=== PATIENT | male | born 1940 | race Caucasian/White ===

== ENCOUNTER 2019-01-30 14:54 | Inpatient (IN) | payer MEDICARE ==
[~2019-01-30] VITALS: Ht 180.3 cm; Wt 86.2 kg
[2019-01-30] MEDS ORDERED: CHOL100013 PO (15:43)
[2019-01-30] MEDS ORDERED: LINA5TAB4 PO (15:43)
[2019-01-30] MEDS ORDERED: AMLO10TA8 PO (15:43)
[2019-01-30] MEDS ORDERED: LISI10TA2 PO (15:43)
[2019-01-30] MEDS ORDERED: IBUP400T18 PO (15:43)
[2019-01-30] MEDS ORDERED: GLIP10TA13 PO (15:43)
[2019-01-30] MEDS ORDERED: INSU100V13 SQ (15:43)
[2019-01-30] MEDS ORDERED: HYDR-2155 PO (15:43)
[2019-01-30] MEDS ORDERED: CITA10TA4 PO (15:43)
[2019-01-30] MEDS ORDERED: ATOR10TA60 PO (15:43)
--- NOTE | 2019-01-30 16:00 | NUR ---
Admission Note with Justification for Admission to [facility] Patient admitted to [facility] for protective oversight for emergency stabilization of acute psychiatric crisis. Pt admitted from: Home to [facility] Mode of arrival: Secure Transport Accompanied By: Secure Transport Precipitating behaviors that initiated intake and admission: Threatening staff, non compliance with meds and cares. Description of failure of out patient attempts at stabilization in previous setting list behavior and medication trials: Celexa Behaviors and assessment findings upon admission: Irritable. Does not know why he is here. Plan: Admit for protective oversight for adjustment and stabilization of medications, behaviors and mood. Intense treatment regimen including groups, medication adjustments, therapy, consistent regimen for ADL's, self care, and sleep hygiene. Daily monitoring by Inpatient staff, Psychiatry, and Medical Physician.
[2019-01-30 16:13] VITALS: BP 110/73
[2019-01-30] MEDS ORDERED: MAGNESIUM HYDROXIDE 2,400 MG/30 ML ORAL.SUSP. PO PRN (16:15)
[2019-01-30] MEDS ORDERED: ACETAMINOPHEN 325 MG TABLET PO PRN (16:15)
[2019-01-30] MEDS ORDERED: MAG HYDROX/AL HYDROX/SIMETH 30 ML ORAL.SUSP PO PRN (16:15)
[2019-01-30] MEDS ORDERED: METHYL SALICYLATE/MENTHOL TOPICAL OINTMENT 29GM TUBE. TP PRN (16:15)
--- NOTE | 2019-01-30 17:00 | NUR ---
SW found pt in the hallway confused as to where he was supposed to be. SW guided pt to be in the dining room as it was time for dinner. Pt then asked SW if she knew the song "the lady with the tattoo". And proceeded to sing the lyrics to SW; in which SW in turn told pt that she was not aware of that song and thanked him for sharing. Pt wished SW to have a good night and proceeded to head into the dining room. SW to complete PSA on Saturday and contact pt facility.
[2019-01-30 17:04] LABS: BASO # 0.1 x10^3/uL (0.0-0.2); BASO % 1 % (0-3); EOS # 0.2 x10^3/uL (0.0-0.7); EOS % 2 % (0-3); HEMATOCRIT 50.5 % (39.0-53.0); HEMOGLOBIN 16.4 g/dL (13.0-17.5); LYMPH # 5.1 x10^3/uL (1.0-4.8); LYMPH % 43 % (24-48); MEAN CORPUSCULAR HEMOGLOBIN 26 pg (25-35); MEAN CORPUSCULAR HGB CONC 33 g/dL (31-37); MEAN CORPUSCULAR VOLUME 80 fL (79-100); MONO # 0.7 x10^3/uL (0.0-1.1); MONO % 6 % (0-9); NEUT # 5.8 x10^3uL (1.8-7.7); NEUT % 49 % (31-73); PLATELET COUNT 162 x10^3/uL (140-400); RED BLOOD COUNT 6.28 x10^6/uL (4.30-5.70); WHITE BLOOD COUNT 11.9 x10^3/uL (4.0-11.0)
[2019-01-30 17:17] LABS: CALCIUM 8.6 mg/dL (8.5-10.1); CREATININE 1.1 mg/dL (0.7-1.3); GFR 65.1; MAGNESIUM 2.1 mg/dL (1.8-2.4); POTASSIUM 4.2 mmol/L (3.5-5.1); TOTAL BILIRUBIN 0.6 mg/dL (0.2-1.0); TOTAL PROTEIN 7.9 g/dL (6.4-8.2)
[2019-01-30 18:05] LABS: % ATYL 3 % (0-0); % BASOS 1 % (0-3); % EOS 1 % (0-5); % LYMPHS 39 % (24-48); % MONOS 8 % (0-10); % SEGS 48 % (35-66); ANISOCYTOSIS SLIGHT; HYPOCHROMIA SLIGHT; PLT ESTIMATE ADEQUATE (ADEQUATE)
[2019-01-30] MEDS ORDERED: HYDROcodone/APAP 5/325MG 1 TAB TABLET PO PRN (18:45)
[2019-01-30] MEDS ORDERED: IBUPROFEN 400 MG TABLET. PO PRN (18:45)
[2019-01-30] MEDS ORDERED: ATORVASTATIN CALCIUM 10 MG TABLET. PO SCH (21:00)
--- NOTE | 2019-01-30 21:14 | EKG ---
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
[2019-01-31 02:11] LABS: THYROXINE 8.3 ug/dL (4.5-12.0)
[2019-01-31 05:49] VITALS: BP 124/75
[2019-01-31] MEDS: ATORVASTATIN CALCIUM 10 MG TABLET. PO SCH (08:32)
[2019-01-31] MEDS: LINAGLIPTIN 5 MG TABLET PO SCH (08:32)
[2019-01-31] MEDS: LISINOPRIL 10 MG TABLET PO SCH (08:33)
[2019-01-31] MEDS: amLODIPine BESYLATE 10 MG TABLET PO SCH (08:33)
[2019-01-31] MEDS: CITALOPRAM 10 MG TABLET. PO SCH (08:34)
[2019-01-31] MEDS: CHOLECALCIFEROL (VITAMIN D3) 1,000 UNIT TABLET PO SCH (08:34)
[2019-01-31] MEDS: glipiZIDE 5 MG TABLET PO SCH ×2 (08:34→08:38)
[2019-01-31] MEDS: INSULIN GLARGINE 300 UNITS/3 ML INSULN.PEN. SQ SCH (08:37)
[2019-01-31 11:17] LABS: THYROID STIM HORMONE (TSH) 1.291 uIU/mL (0.358-3.740)
--- NOTE | 2019-01-31 11:37 | NUR ---
Nursing Note: Assumed care of pt approx 0700. Pt in his room at time of morning medication pass. Pt compliant w/ meds taken whole, compliant w/ assessment. Pt knew his name, his , and the president. When asked the year, pt replied, "I don't give a shit." This nurse replied, "If you don't know the year that if fine. Just take a guess." Pt again said, "I don't give a shit." Pt was initially resistive to taking a shower, but staff was able to convince shower that it was necessary. Pt was cooperative during shower and there were no sexually inappropriate comments made.
[2019-01-31 13:10] LABS: HEMOGLOBIN A1C 9.4 % (4.8-5.6)
[2019-01-31] MEDS ORDERED: DEXTROSE 50% 25 GM / 50ML DISP.SYRIN. IV PRN (15:15)
[2019-01-31 15:43] VITALS: BP 133/90
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
[2019-01-31] MEDS: INSULIN LISPRO 300 UNITS/3 ML INSULN.PEN. SQ SCH (17:45)
[2019-01-31 22:59] LABS: CLARITY,URINE CLEAR; COLOR,URINE YELLOW; GLUCOSE,URINE >=1000 mg/dL (NEG)
[2019-01-31 23:00] LABS: BACTERIA,URINE 0 /HPF (0-FEW); BILIRUBIN,URINE NEG (NEG); NITRITE,URINE NEG (NEG); RBC,URINE 0 /HPF (0-2); SQUAMOUS EPITHELIAL CELL,UR OCC /LPF; UROBILINOGEN,URINE 0.2 mg/dL (0.2 mg/dL); WBC,URINE RARE /HPF (0-4)
--- NOTE | 2019-02-01 | NUR ---
Pt sitting calmly in the dayroom this evening watching a movie. Pt pleasant when approached. Pt flirtatious with this nurse and asked if I was . Pt does not receive any HS medications. Pt A/O x 3 this evening. Pt appeared defensive when asked about why he was at [facility]. 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
--- NOTE | 2019-02-01 05:43 | NUR ---
Pt refused to change into clean clothes this morning. When approached, pt yelled "No! I am not going to change my clothes." Pt could not state any reason as to why he didn't want clean clothes. Pt informed that he will put on clean clothes every morning and shower every other day. Pt given the option to change by himself or staff would help him change. Pt refused. Staff x4 assisted pt in changing of clothes. During this time, pt was never physical, but made several rude, sarcastic and condescending statements. Pt stated that this nurse was "nothing but a panhandler." When asked what he meant, pt stated "all you do is handle bedpans." Pt continued to be rude, demanding and yelling at staff during the clothing change.
[2019-02-01 06:22] VITALS: BP 129/89
[2019-02-01] MEDS: LISINOPRIL 10 MG TABLET PO SCH (08:50)
[2019-02-01] MEDS: CITALOPRAM 10 MG TABLET. PO SCH (08:50)
[2019-02-01] MEDS: ATORVASTATIN CALCIUM 10 MG TABLET. PO SCH (08:50)
[2019-02-01] MEDS: LINAGLIPTIN 5 MG TABLET PO SCH (08:51)
[2019-02-01] MEDS: amLODIPine BESYLATE 10 MG TABLET PO SCH (08:51)
[2019-02-01] MEDS: CHOLECALCIFEROL (VITAMIN D3) 1,000 UNIT TABLET PO SCH (08:51)
[2019-02-01] MEDS: glipiZIDE 5 MG TABLET PO SCH (08:52)
[2019-02-01] MEDS: INSULIN GLARGINE 300 UNITS/3 ML INSULN.PEN. SQ SCH (08:57)
[2019-02-01] MEDS: INSULIN LISPRO 300 UNITS/3 ML INSULN.PEN. SQ SCH ×3 (08:58→17:34)
--- NOTE | 2019-02-01 10:56 | NUR ---
Upon assessment patient is in his room. Was calm, compliant, allowed for assessment, and took medications. 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 No signs of agitation noted at this time. Patient is currently resting quietly in his room. Will continue to monitor.
[2019-02-01 16:08] VITALS: BP 125/77
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
--- NOTE | 2019-02-02 00:06 | NUR ---
Pt sitting calmly all evening in the dayroom. Pt does not receive any HS medications. Pt did become angry when informed that he would need to change into pajamas in order for his clothes to be laundered. Pt refused. Staff x3 assisted in changing pt. During clothing change, pt made rude, derogatory statements to the female staff.
--- NOTE | 2019-02-02 02:56 | NUR ---
Pt awoke and went to the dayroom around 0245. Pt informed of the time and that he needed to try to go back to sleep. Pt very snarky and condescending to this nurse. 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 RN's are known to be congenitally mean. Did you know that? 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
[2019-02-02 06:09] VITALS: BP 132/79
[2019-02-02] MEDS: CITALOPRAM 10 MG TABLET. PO SCH (08:34)
[2019-02-02] MEDS: ATORVASTATIN CALCIUM 10 MG TABLET. PO SCH (08:34)
[2019-02-02] MEDS: LINAGLIPTIN 5 MG TABLET PO SCH (08:35)
[2019-02-02] MEDS: CHOLECALCIFEROL (VITAMIN D3) 1,000 UNIT TABLET PO SCH (08:35)
[2019-02-02] MEDS: LISINOPRIL 10 MG TABLET PO SCH (08:35)
[2019-02-02] MEDS: amLODIPine BESYLATE 10 MG TABLET PO SCH (08:35)
[2019-02-02] MEDS: INSULIN LISPRO 300 UNITS/3 ML INSULN.PEN. SQ SCH ×3 (08:39→17:42)
[2019-02-02] MEDS: INSULIN GLARGINE 300 UNITS/3 ML INSULN.PEN. SQ SCH ×2 (08:40→20:24)
[2019-02-02] MEDS ORDERED: glipiZIDE 5 MG TABLET PO ONE (08:45)
--- NOTE | 2019-02-02 09:45 | NUR ---
Patient took medications, allowed for morning assessment. When staff first tried to get patient in the shower he was resistive. No signs of agitation noted, will continue to monitor.
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
--- NOTE | 2019-02-02 10:30 | NUR ---
SW noted that pt, according to the intake, has an emergency temporary guardian assigned to him. However, the facesheet list pt as the emergency contact and next of kin. SW left a message with pt "guardian" to clarify who can be talked to and who could not.
--- NOTE | 2019-02-02 13:00 | RAD ---
CT of the head without contrast, 02/02/2019: HISTORY: Altered mental status There is moderate cerebral atrophy and mild cerebellar atrophy. The ventricles are enlarged on a compensatory basis. There is no shift of the midline structures. There is no evidence of acute intracranial hemorrhage or mass effect. There is calcific plaquing of the distal internal carotid and vertebral arteries. IMPRESSION: 1. Moderate cerebral atrophy. 2. No acute intracranial abnormality is detected. PQRS Compliance Statement: One or more of the following individualized dose reduction techniques were utilized for this examination: 1. Automated exposure control 2. Adjustment of the mA and/or kV according to patient size 3. Use of iterative reconstruction technique Electronically signed by: Amrit Demarco MD (02/02/2019 12:57 PM) [facility]
--- NOTE | 2019-02-02 14:15 | NUR ---
Attempted to meet and complete Activity Therapy Assessment; however, Pt. was sleeping.
[2019-02-02 16:40] VITALS: BP 126/86
[2019-02-02] MEDS: MIRTAZAPINE 7.5 MG TABLET. PO SCH (20:23)
--- NOTE | 2019-02-02 23:17 | PDOC ---
Exam Note: Marlo Note: Please also refer to the separate dictated note~for this date of service dictated separately. Discussed the patient with Nursing staff reviewed the chart.~Reviewed interim history and current functioning. Reviewed vital signs,~Labs/ Radiology~and current medications noted below. Continue current treatment with the changes noted in the dictated addendum note Assessment: Vital Signs: Vital Signs Date Time Temp Pulse Resp B/P (MAP) Pulse Ox O2 Delivery O2 Flow Rate FiO2 02/02/19 16:40 97.4 94 18 126/86 (99) 96 01/31/19 15:43 Room Air I&O Intake and Output 02/02/19 06:59 Intake Total 1440 ml Balance 1440 ml Intake Oral 1440 ml # Bowel Movements 1 Labs: Laboratory Tests Test 02/02/19 07:58 02/02/19 10:35 02/02/19 11:43 02/02/19 17:03 Glucose (Fingerstick) 215 mg/dL (70-99) H 140 mg/dL (70-99) H 181 mg/dL (70-99) H Vitamin B12 Level 534 pg/mL (247-911) Test 02/02/19 20:06 Glucose (Fingerstick) 314 mg/dL (70-99) H Current Medications: Meds: Current Medications Acetaminophen (Tylenol) 650 mg PRN Q6HRS PRN PO PAIN / TEMP Last administered on 01/31/19at 18:47; Start 01/30/19 at 16:15 Multi-Ingredient Ointment (Analgesic [place]) 1 kimberley PRN QID PRN TP MUSCLE PAIN; Start 01/30/19 at 16:15 Al Hydroxide/Mg Hydroxide (Mylanta Plus Xs) 15 ml PRN AFTMEALHC PRN PO DYSPEPSIA; Start 01/30/19 at 16:15 Magnesium Hydroxide (Milk Of Magnesia) 2,400 mg PRN QHS PRN PO CONSTIPATION; Start 01/30/19 at 16:15 Citalopram Hydrobromide (CeleXA) 10 mg DAILY PO Last administered on 02/02/19at 08:34; Start 01/31/19 at 09:00 Acetaminophen/ Hydrocodone Bitart (Lortab 5/325) 1 tab PRN Q4HRS PRN PO PAIN; Start 01/30/19 at 18:45 Ibuprofen (Motrin) 400 mg PRN Q6HRS PRN PO PAIN / TEMP; Start 01/30/19 at 18:45 Lisinopril (Prinivil) 10 mg DAILY PO Last administered on 02/02/19at 08:35; Start 01/31/19 at 09:00 Amlodipine Besylate (Norvasc) 10 mg DAILY PO Last administered on 02/02/19at 08:35; Start 01/31/19 at 09:00 Atorvastatin Calcium (Lipitor) 10 mg QHS PO ; Start 01/30/19 at 21:00; Stop 01/30/19 at 21:00; Status DC Vitamin D (Vitamin D3) 5,000 unit DAILY PO Last administered on 02/02/19 08:35; Start 01/31/19 at 09:00 Glipizide (Glucotrol) 10 mg DAILYAC PO Last administered on 02/01/19 08:52; Start 01/31/19 at 07:30; Stop 02/02/19 at 08:42; Status DC Insulin Glargine (Lantus) 30 units DAILY SQ Last administered on 02/02/19at 08:40; Start 01/31/19 at 09:00 Linagliptin (Tradjenta) 5 mg DAILY PO Last administered on 02/02/19 08:35; Start 01/31/19 at 09:00 Atorvastatin Calcium (Lipitor) 10 mg DAILY PO Last administered on 02/02/19 08:34; Start 01/31/19 at 09:00 Insulin Human Lispro (HumaLOG) 0-7 UNITS TIDWMEALS SQ Last administered on 02/02/19at 17:42; Start 01/31/19 at 17:00 Dextrose (Dextrose 50%-Water Syringe) 12.5 gm PRN Q15MIN PRN IV SEE COMMENTS; Start 01/31/19 at 15:15 Glipizide (Glucotrol) 10 mg 1X ONCE PO Last administered on 02/02/19at 08:44; Start 02/02/19 at 08:45; Stop 02/02/19 at 08:46; Status DC Glipizide (Glucotrol) 10 mg DAILYAC PO ; Start 02/03/19 at 07:30; Stop 02/03/19 at 07:30; Status DC Mirtazapine (Remeron) 7.5 mg QHS PO Last administered on 02/02/19at 20:23; Start 02/02/19 at 21:00 Rivastigmine (Exelon) 1 patch DAILY TD ; Start 02/03/19 at 09:00 Insulin Glargine (Lantus) 8 units QHS SQ Last administered on 02/02/19at 20:24; Start 02/02/19 at 21:00 Active Scripts Active Reported Ibuprofen 400 Mg Tablet 400 Mg PO PRN Q6HRS PRN Hydrocodone-Apap 5-325 (Hydrocodone Bit/Acetaminophen) 1 Each Tablet 1 Tab PO PRN Q4HRS PRN Lisinopril 10 Mg Tablet 10 Mg PO DAILY Tradjenta (Linagliptin) 5 Mg Tablet 5 Mg PO DAILY Levemir (Insulin Detemir) 100 Unit/1 Ml Vial 30 Unit SQ DAILY Glipizide 10 Mg Tablet 10 Mg PO DAILY Citalopram Hbr (Citalopram Hydrobromide) 10 Mg Tablet 10 Mg PO DAILY Vitamin D (Cholecalciferol (Vitamin D3)) 1,000 Unit Capsule 5,000 Unit PO DAILY Atorvastatin Calcium 10 Mg Tablet 10 Mg PO QHS Amlodipine Besylate 10 Mg Tablet 10 Mg PO DAILY I have reviewed the current psychotropics carefully including drug interactions. Risk benefit ratio favors no change other than as noted in my dictated progress note. Diagnosis: Problems: (1) Dementia in Alzheimer's disease with depression (2) Dementia of the Alzheimer's type (3) Dementia, vascular (4) Major neurocognitive disorder due to Alzheimer's disease, with behavioral disturbance RADHA OLGUIN MD February 02, 2019 23:17
--- NOTE | 2019-02-03 00:26 | NUR ---
Pt sitting calmly in the dayroom this evening. Pt A/O x3, but could not state what he had done today. Pt short with his answers and appeared irritated when asked questions. Continues to be condescending to staff, calling nurses pill pushers and panhandlers. Compliant with HS medications. When asked if this nurse could do anything else for him, pt stated "yes, me." Will continue to monitor.
[2019-02-03 06:27] VITALS: BP 135/87
[2019-02-03] MEDS ORDERED: glipiZIDE 5 MG TABLET PO SCH (07:30)
[2019-02-03] MEDS: CITALOPRAM 10 MG TABLET. PO SCH (09:25)
[2019-02-03] MEDS: ATORVASTATIN CALCIUM 10 MG TABLET. PO SCH (09:25)
[2019-02-03] MEDS: amLODIPine BESYLATE 10 MG TABLET PO SCH (09:26)
[2019-02-03] MEDS: CHOLECALCIFEROL (VITAMIN D3) 1,000 UNIT TABLET PO SCH (09:26)
[2019-02-03] MEDS: LISINOPRIL 10 MG TABLET PO SCH (09:27)
[2019-02-03] MEDS: LINAGLIPTIN 5 MG TABLET PO SCH (09:27)
[2019-02-03] MEDS: RIVASTIGMINE 4.6MG PATCH. TD SCH (09:31)
[2019-02-03] MEDS: INSULIN LISPRO 300 UNITS/3 ML INSULN.PEN. SQ SCH ×3 (10:03→17:32)
[2019-02-03] MEDS: INSULIN GLARGINE 300 UNITS/3 ML INSULN.PEN. SQ SCH ×2 (10:04→19:48)
--- NOTE | 2019-02-03 11:43 | NUR ---
Patient has had a quiet morning. Upon assessment he was just getting ready to lay down after breakfast. Took medications, allowed for morning assessment. No signs of agitation at this time. Will continue to monitor.
--- NOTE | 2019-02-03 15:00 | NUR ---
ACTIVITY THERAPY ASSESSMENT Completed based on observation and [facility]/nursing notes. Pt. has been sleeping on five difference occasions when PEDIATRIC CNS attempted to meet and complete assessment interview. Pt. is not around day room very often. When he was, he apologized and explained he is hard of hearing and cups his right ear in an effort to hear better. Per [employer] notes, Pt is resistive to ADL cares (changing briefs/ clothing) and can make rude and belittling comments to staff. He also tends to ask female staff if they are . 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 Activity Therapy team will attempt to gather more leisure interests/ hobbies and amend this note as needed. Initial goal aimed to increase engagement: Pt. will participate in at least five individual or (Activity Therapy) groups before discharge.
[2019-02-03 16:08] VITALS: BP 123/76
[2019-02-03] MEDS: MIRTAZAPINE 7.5 MG TABLET. PO SCH (19:39)
--- NOTE | 2019-02-03 19:57 | PDOC ---
Exam Note: Marlo Note: Admission Date: January 30, 2019 at 15:53 * A recertification for continued Inpatient Psychiatric Admission must be done on Day 12, Day 18 and Day 30. Please also refer to the separate dictated note~for this date of service dictated separately.~Patient seen individually. Discussed the patient with Nursing staff reviewed the chart.~Reviewed interim history and current functioning. Reviewed vital signs,~Labs/ Radiology~and current medications noted below. Continue current treatment with the changes noted in the dictated addendum note Assessment: Vital Signs: Vital Signs Date Time Temp Pulse Resp B/P (MAP) Pulse Ox O2 Delivery O2 Flow Rate FiO2 02/03/19 16:08 97.8 84 20 123/76 (92) 95 01/31/19 15:43 Room Air I&O Intake and Output 02/03/19 07:00 Intake Total 1160 ml Balance 1160 ml Intake Oral 1160 ml Labs: Laboratory Tests Test 02/02/19 20:06 02/03/19 07:23 02/03/19 11:35 02/03/19 16:35 Glucose (Fingerstick) 314 mg/dL (70-99) H 181 mg/dL (70-99) H 280 mg/dL (70-99) H 185 mg/dL (70-99) H Test 02/03/19 19:42 Glucose (Fingerstick) 264 mg/dL (70-99) H Current Medications: Meds: Current Medications Acetaminophen (Tylenol) 650 mg PRN Q6HRS PRN PO PAIN / TEMP Last administered on 01/31/19at 18:47; Start 01/30/19 at 16:15 Multi-Ingredient Ointment (Analgesic [place]) 1 kimberley PRN QID PRN TP MUSCLE PAIN; Start 01/30/19 at 16:15 Al Hydroxide/Mg Hydroxide (Mylanta Plus Xs) 15 ml PRN AFTMEALHC PRN PO DYSPEPSIA; Start 01/30/19 at 16:15 Magnesium Hydroxide (Milk Of Magnesia) 2,400 mg PRN QHS PRN PO CONSTIPATION; Start 01/30/19 at 16:15 Citalopram Hydrobromide (CeleXA) 10 mg DAILY PO Last administered on 02/03/19at 09:25; Start 01/31/19 at 09:00 Acetaminophen/ Hydrocodone Bitart (Lortab 5/325) 1 tab PRN Q4HRS PRN PO PAIN; Start 01/30/19 at 18:45 Ibuprofen (Motrin) 400 mg PRN Q6HRS PRN PO PAIN / TEMP; Start 01/30/19 at 18:45 Lisinopril (Prinivil) 10 mg DAILY PO Last administered on 02/03/19at 09:27; Start 01/31/19 at 09:00 Amlodipine Besylate (Norvasc) 10 mg DAILY PO Last administered on 02/03/19at 09:26; Start 01/31/19 at 09:00 Atorvastatin Calcium (Lipitor) 10 mg QHS PO ; Start 01/30/19 at 21:00; Stop 01/30/19 at 21:00; Status DC Vitamin D (Vitamin D3) 5,000 unit DAILY PO Last administered on 02/03/19at 09:26; Start 01/31/19 at 09:00 Glipizide (Glucotrol) 10 mg DAILYAC PO Last administered on 02/01/19at 08:52; Start 01/31/19 at 07:30; Stop 02/02/19 at 08:42; Status DC Insulin Glargine (Lantus) 30 units DAILY SQ Last administered on 02/03/19at 10:04; Start 01/31/19 at 09:00 Linagliptin (Tradjenta) 5 mg DAILY PO Last administered on 02/03/19at 09:27; Start 01/31/19 at 09:00 Atorvastatin Calcium (Lipitor) 10 mg DAILY PO Last administered on 02/03/19at 09:25; Start 01/31/19 at 09:00 Insulin Human Lispro (HumaLOG) 0-7 UNITS TIDWMEALS SQ Last administered on 02/03/19at 17:32; Start 01/31/19 at 17:00 Dextrose (Dextrose 50%-Water Syringe) 12.5 gm PRN Q15MIN PRN IV SEE COMMENTS; Start 01/31/19 at 15:15 Glipizide (Glucotrol) 10 mg 1X ONCE PO Last administered on 02/02/19at 08:44; Start 02/02/19 at 08:45; Stop 02/02/19 at 08:46; Status DC Glipizide (Glucotrol) 10 mg DAILYAC PO ; Start 02/03/19 at 07:30; Stop 02/03/19 at 07:30; Status DC Mirtazapine (Remeron) 7.5 mg QHS PO Last administered on 02/03/19at 19:39; Start 02/02/19 at 21:00 Rivastigmine (Exelon) 1 patch DAILY TD Last administered on 02/03/19at 09:31; Start 02/03/19 at 09:00 Insulin Glargine (Lantus) 8 units QHS SQ Last administered on 02/03/19at 19:48; Start 02/02/19 at 21:00 Active Scripts Active Reported Ibuprofen 400 Mg Tablet 400 Mg PO PRN Q6HRS PRN Hydrocodone-Apap 5-325 (Hydrocodone Bit/Acetaminophen) 1 Each Tablet 1 Tab PO PRN Q4HRS PRN Lisinopril 10 Mg Tablet 10 Mg PO DAILY Tradjenta (Linagliptin) 5 Mg Tablet 5 Mg PO DAILY Levemir (Insulin Detemir) 100 Unit/1 Ml Vial 30 Unit SQ DAILY Glipizide 10 Mg Tablet 10 Mg PO DAILY Citalopram Hbr (Citalopram Hydrobromide) 10 Mg Tablet 10 Mg PO DAILY Vitamin D (Cholecalciferol (Vitamin D3)) 1,000 Unit Capsule 5,000 Unit PO DAILY Atorvastatin Calcium 10 Mg Tablet 10 Mg PO QHS Amlodipine Besylate 10 Mg Tablet 10 Mg PO DAILY I have reviewed the current psychotropics carefully including drug interactions. Risk benefit ratio favors no change other than as noted in my dictated progress note. Diagnosis: Problems: (1) Dementia, vascular (2) Dementia of the Alzheimer's type (3) Dementia, Alzheimer's, with behavior disturbance (4) Dementia in Alzheimer's disease with depression (5) Major neurocognitive disorder due to Alzheimer's disease, with behavioral disturbance RADHA OLGUIN MD February 03, 2019 19:57
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
--- NOTE | 2019-02-03 22:33 | NUR ---
Nursing Note The patient was located in the day room for his assessment and medication pass. The patient was compliant with his medication but was irritable with his assessment. The patient stated numerous times that he doesn't care if he knows his location or what the date is. The patient is currently sleeping in his room.
[2019-02-04 06:20] VITALS: BP 129/81
[2019-02-04] MEDS: INSULIN LISPRO 300 UNITS/3 ML INSULN.PEN. SQ SCH ×4 (08:00→17:19)
[2019-02-04] MEDS: CITALOPRAM 10 MG TABLET. PO SCH (08:08)
[2019-02-04] MEDS: amLODIPine BESYLATE 10 MG TABLET PO SCH (08:08)
[2019-02-04] MEDS: ATORVASTATIN CALCIUM 10 MG TABLET. PO SCH (08:08)
[2019-02-04] MEDS: LISINOPRIL 10 MG TABLET PO SCH (08:08)
[2019-02-04] MEDS: LINAGLIPTIN 5 MG TABLET PO SCH (08:08)
[2019-02-04] MEDS: CHOLECALCIFEROL (VITAMIN D3) 1,000 UNIT TABLET PO SCH (08:08)
[2019-02-04] MEDS: RIVASTIGMINE 4.6MG PATCH. TD SCH (08:09)
[2019-02-04] MEDS: INSULIN GLARGINE 300 UNITS/3 ML INSULN.PEN. SQ SCH ×2 (08:10→19:46)
[2019-02-04 09:07] LABS: BASO # 0.1 x10^3/uL (0.0-0.2); BASO % 1 % (0-3); EOS # 0.2 x10^3/uL (0.0-0.7); EOS % 3 % (0-3); HEMATOCRIT 44.7 % (39.0-53.0); HEMOGLOBIN 14.4 g/dL (13.0-17.5); LYMPH % 44 % (24-48); MEAN CORPUSCULAR HEMOGLOBIN 26 pg (25-35); MEAN CORPUSCULAR HGB CONC 32 g/dL (31-37); MEAN CORPUSCULAR VOLUME 81 fL (79-100); MONO # 0.6 x10^3/uL (0.0-1.1); MONO % 6 % (0-9); NEUT # 4.3 x10^3uL (1.8-7.7); NEUT % 47 % (31-73); PLATELET COUNT 160 x10^3/uL (140-400); RED BLOOD COUNT 5.55 x10^6/uL (4.30-5.70); WHITE BLOOD COUNT 9.1 x10^3/uL (4.0-11.0)
[2019-02-04 09:16] LABS: ALBUMIN 3.3 g/dL (3.4-5.0); CALCIUM 8.7 mg/dL (8.5-10.1); GFR 72.6; POTASSIUM 3.8 mmol/L (3.5-5.1); TOTAL BILIRUBIN 0.6 mg/dL (0.2-1.0); TOTAL PROTEIN 6.5 g/dL (6.4-8.2)
--- NOTE | 2019-02-04 13:21 | NUR ---
Nursing Note pt was in dining room this am for assessment and medication administration. pt was compliant with medications. pt was non compliant with A&O questions. states "it is 2019, abdirizak is the president, and i don't care about anything else". upon assessment, pt has healing scabs on bilateral shins and on left arm. left lower extremity covered with foam, others DANIELE. Pt was withdrawn to his room in bed for most of the day thus far. pt ate breakfast but refused to come down for lunch. pt was not very interactive today with others or activities. will continue to monitor.
[2019-02-04 16:07] VITALS: BP 136/81
[2019-02-04] MEDS: MIRTAZAPINE 7.5 MG TABLET. PO SCH (19:45)
--- NOTE | 2019-02-04 21:01 | PN ---
DATE: 02/03/2019 PSYCHIATRIC PROGRESS NOTE This late entry 02/03/2019 covers elements not covered in my initial note. SUBJECTIVE: I met with the patient in the evening at length. The patient slept 6-1/2 hours previous night. He had a good day, compliant with treatment, agitated with showers and changing his clothes, which is what was a big problem at home before he came here with very poor hygiene. REVIEW OF SYSTEMS: No CV, , pulmonary, eye, ENT system symptoms on review. Reliability poor. MENTAL STATUS EXAM: Oriented to himself. Insight, judgment, recent and remote memory, attention, concentration, fund of knowledge poor, consistent with his diagnosis mentioned in my initial note. During the individual visit, he talked at length about training children and various life skills and work skills, and he was able to remember some of this as I sat with him. IMPRESSION: Unchanged from initial note. PLAN: No change from initial note. RADHA OLGUIN MD DR: ALAN/elina JOB#: [id number] / [id number]
--- NOTE | 2019-02-04 22:01 | PDOC ---
Exam Note: Marlo Note: Please also refer to the separate dictated note~for this date of service dictated separately.~Patient seen individually. Discussed the patient with Nursing staff reviewed the chart.~Reviewed interim history and current functioning. Reviewed vital signs,~Labs/ Radiology~and current medications noted below. Continue current treatment with the changes noted in the dictated addendum note Assessment: Vital Signs: Vital Signs Date Time Temp Pulse Resp B/P (MAP) Pulse Ox O2 Delivery O2 Flow Rate FiO2 02/04/19 16:07 98.5 83 18 136/81 (99) 96 01/31/19 15:43 Room Air I&O Intake and Output 02/04/19 07:00 Intake Total 1700 ml Balance 1700 ml Intake Oral 1700 ml Labs: Laboratory Tests Test 02/04/19 07:19 02/04/19 08:54 02/04/19 11:32 02/04/19 17:16 Glucose (Fingerstick) 108 mg/dL (70-99) H 178 mg/dL (70-99) H 212 mg/dL (70-99) H White Blood Count 9.1 x10^3/uL (4.0-11.0) Red Blood Count 5.55 x10^6/uL (4.30-5.70) Hemoglobin 14.4 g/dL (13.0-17.5) Hematocrit 44.7 % (39.0-53.0) Mean Corpuscular Volume 81 fL (79-100) Mean Corpuscular Hemoglobin 26 pg (25-35) Mean Corpuscular Hemoglobin Concent 32 g/dL (31-37) Red Cell Distribution Width 15.0 % (11.5-14.5) H Platelet Count 160 x10^3/uL (140-400) Neutrophils (%) (Auto) 47 % (31-73) Lymphocytes (%) (Auto) 44 % (24-48) Monocytes (%) (Auto) 6 % (0-9) Eosinophils (%) (Auto) 3 % (0-3) Basophils (%) (Auto) 1 % (0-3) Neutrophils # (Auto) 4.3 x10^3uL (1.8-7.7) Lymphocytes # (Auto) 4.0 x10^3/uL (1.0-4.8) Monocytes # (Auto) 0.6 x10^3/uL (0.0-1.1) Eosinophils # (Auto) 0.2 x10^3/uL (0.0-0.7) Basophils # (Auto) 0.1 x10^3/uL (0.0-0.2) Sodium Level 138 mmol/L (136-145) Potassium Level 3.8 mmol/L (3.5-5.1) Chloride Level 101 mmol/L (98-107) Carbon Dioxide Level 32 mmol/L (21-32) Anion Gap 5 (6-14) L Blood Urea Nitrogen 17 mg/dL (8-26) Creatinine 1.0 mg/dL (0.7-1.3) Estimated GFR (Cockcroft-Gault) 72.6 BUN/Creatinine Ratio 17 (6-20) Glucose Level 221 mg/dL (70-99) H Calcium Level 8.7 mg/dL (8.5-10.1) Total Bilirubin 0.6 mg/dL (0.2-1.0) Aspartate Amino Transferase (AST) 9 U/L (15-37) L Alanine Aminotransferase (ALT) 21 U/L (16-63) Alkaline Phosphatase 77 U/L (46-116) Total Protein 6.5 g/dL (6.4-8.2) Albumin 3.3 g/dL (3.4-5.0) L Albumin/Globulin Ratio 1.0 (1.0-1.7) Test 02/04/19 19:15 Glucose (Fingerstick) 344 mg/dL (70-99) H Current Medications: Meds: Current Medications Acetaminophen (Tylenol) 650 mg PRN Q6HRS PRN PO PAIN / TEMP Last administered on 01/31/19at 18:47; Start 01/30/19 at 16:15 Multi-Ingredient Ointment (Analgesic [place]) 1 kimberley PRN QID PRN TP MUSCLE PAIN; Start 01/30/19 at 16:15 Al Hydroxide/Mg Hydroxide (Mylanta Plus Xs) 15 ml PRN AFTMEALHC PRN PO DYSPEPSIA; Start 01/30/19 at 16:15 Magnesium Hydroxide (Milk Of Magnesia) 2,400 mg PRN QHS PRN PO CONSTIPATION; Start 01/30/19 at 16:15 Citalopram Hydrobromide (CeleXA) 10 mg DAILY PO Last administered on 02/04/19 08:08; Start 01/31/19 at 09:00; Stop 02/04/19 at 17:01; Status DC Acetaminophen/ Hydrocodone Bitart (Lortab 5/325) 1 tab PRN Q4HRS PRN PO PAIN; Start 01/30/19 at 18:45 Ibuprofen (Motrin) 400 mg PRN Q6HRS PRN PO PAIN / TEMP; Start 01/30/19 at 18:45 Lisinopril (Prinivil) 10 mg DAILY PO Last administered on 02/04/19at 08:08; Start 01/31/19 at 09:00 Amlodipine Besylate (Norvasc) 10 mg DAILY PO Last administered on 02/04/19at 08:08; Start 01/31/19 at 09:00 Atorvastatin Calcium (Lipitor) 10 mg QHS PO ; Start 01/30/19 at 21:00; Stop 01/30/19 at 21:00; Status DC Vitamin D (Vitamin D3) 5,000 unit DAILY PO Last administered on 02/04/19at 08:0 8; Start 01/31/19 at 09:00 Glipizide (Glucotrol) 10 mg DAILYAC PO Last administered on 02/01/19at 08:52; Start 01/31/19 at 07:30; Stop 02/02/19 at 08:42; Status DC Insulin Glargine (Lantus) 30 units DAILY SQ Last administered on 02/03/19at 10:04; Start 01/31/19 at 09:00 Linagliptin (Tradjenta) 5 mg DAILY PO Last administered on 02/04/19at 08:08; Start 01/31/19 at 09:00 Atorvastatin Calcium (Lipitor) 10 mg DAILY PO Last administered on 02/04/19at 08:08; Start 01/31/19 at 09:00 Insulin Human Lispro (HumaLOG) 0-7 UNITS TIDWMEALS SQ Last administered on 02/04/19at 17:19; Start 01/31/19 at 17:00 Dextrose (Dextrose 50%-Water Syringe) 12.5 gm PRN Q15MIN PRN IV SEE COMMENTS; Start 01/31/19 at 15:15 Glipizide (Glucotrol) 10 mg 1X ONCE PO Last administered on 02/02/19at 08:44; Start 02/02/19 at 08:45; Stop 02/02/19 at 08:46; Status DC Glipizide (Glucotrol) 10 mg DAILYAC PO ; Start 02/03/19 at 07:30; Stop 02/03/19 at 07:30; Status DC Mirtazapine (Remeron) 7.5 mg QHS PO Last administered on 02/04/19at 19:45; Start 02/02/19 at 21:00 Rivastigmine (Exelon) 1 patch DAILY TD Last administered on 02/04/19at 08:09; Start 02/03/19 at 09:00 Insulin Glargine (Lantus) 8 units QHS SQ Last administered on 02/04/19at 19:46; Start 02/02/19 at 21:00 Citalopram Hydrobromide (CeleXA) 20 mg DAILY PO ; Start 02/05/19 at 09:00 Active Scripts Active Reported Ibuprofen 400 Mg Tablet 400 Mg PO PRN Q6HRS PRN Hydrocodone-Apap 5-325 (Hydrocodone Bit/Acetaminophen) 1 Each Tablet 1 Tab PO PRN Q4HRS PRN Lisinopril 10 Mg Tablet 10 Mg PO DAILY Tradjenta (Linagliptin) 5 Mg Tablet 5 Mg PO DAILY Levemir (Insulin Detemir) 100 Unit/1 Ml Vial 30 Unit SQ DAILY Glipizide 10 Mg Tablet 10 Mg PO DAILY Citalopram Hbr (Citalopram Hydrobromide) 10 Mg Tablet 10 Mg PO DAILY Vitamin D (Cholecalciferol (Vitamin D3)) 1,000 Unit Capsule 5,000 Unit PO DAILY Atorvastatin Calcium 10 Mg Tablet 10 Mg PO QHS Amlodipine Besylate 10 Mg Tablet 10 Mg PO DAILY I have reviewed the current psychotropics carefully including drug interactions. Risk benefit ratio favors no change other than as noted in my dictated progress note. Diagnosis: Problems: (1) Dementia, vascular (2) Dementia of the Alzheimer's type (3) Dementia, Alzheimer's, with behavior disturbance (4) Dementia in Alzheimer's disease with depression (5) Major neurocognitive disorder due to Alzheimer's disease, with behavioral disturbance RADHA OLGUIN MD February 04, 2019 22:01
--- NOTE | 2019-02-04 23:58 | NUR ---
Pt located in the dayroom this evening. Pt calm and interactive. Compliant with meds. 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
[2019-02-05 05:47] VITALS: BP 169/89
[2019-02-05] MEDS: INSULIN LISPRO 300 UNITS/3 ML INSULN.PEN. SQ SCH ×3 (08:28→17:40)
[2019-02-05] MEDS: CHOLECALCIFEROL (VITAMIN D3) 1,000 UNIT TABLET PO SCH (08:29)
[2019-02-05] MEDS: amLODIPine BESYLATE 10 MG TABLET PO SCH (08:29)
[2019-02-05] MEDS: LISINOPRIL 10 MG TABLET PO SCH (08:29)
[2019-02-05] MEDS: ATORVASTATIN CALCIUM 10 MG TABLET. PO SCH (08:29)
[2019-02-05] MEDS: LINAGLIPTIN 5 MG TABLET PO SCH (08:30)
[2019-02-05] MEDS: RIVASTIGMINE 4.6MG PATCH. TD SCH (08:32)
[2019-02-05] MEDS: INSULIN GLARGINE 300 UNITS/3 ML INSULN.PEN. SQ SCH ×2 (08:33→20:21)
[2019-02-05] MEDS: CITALOPRAM 20 MG TABLET. PO SCH (08:34)
--- NOTE | 2019-02-05 10:28 | NUR ---
WEEKLY NOTE: Pt is very grandiose and needs constant redirection on showering and changing his clothing. Pt is also very condescending and can be rude to staff. Pt will need placement at the time of D/C. Pt will have Risperdal .25mg q HS. ELOS end of next week or early part of the week after. Pt tends to withdraw to his room and it is suspected that he may have some hearing concerns.
--- NOTE | 2019-02-05 10:31 | NUR ---
WEEKLY ACTIVITY THERAPY NOTE Date of Admission: 01/30/2019 Date of AT Assessment: 02/03/2019 Goal aimed: to increase engagement Initial goal: Pt. will participate in at least five individual or (Activity Therapy) groups before discharge. Weekly progress towards goal: NA Group participation level: minimal Weekly highlights: full participation in group on Saturday-praise and jain songs and sermon Behaviors observed: sleeping often, cupping right ear to hear better, apologizes for not hearing well Plan: Beneficial adaptations: possibly a pocketalker
--- NOTE | 2019-02-05 13:35 | NUR ---
BRENNAN left a message with Nikole, pt temporary guardian, to contact BRENNAN when possible to question pt discharge plans once stable from [facility].
--- NOTE | 2019-02-05 14:36 | NUR ---
Patient compliant with medications. Patient was demanding to go into day room after breakfast, but has spent most of the day in bed sleeping. Grandiose in conversation during assessment, oriented x3 denies the situation of his hospitalization. 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
[2019-02-05 15:35] VITALS: BP 149/79
[2019-02-05] MEDS: MIRTAZAPINE 7.5 MG TABLET. PO SCH (20:18)
[2019-02-05] MEDS: risperiDONE 0.25 MG TABLET. PO SCH (20:22)
--- NOTE | 2019-02-05 22:27 | PDOC ---
Exam Note: Marlo Note: Please also refer to the separate dictated note~for this date of service dictated separately.~Patient seen individually. Discussed the patient with Nursing staff reviewed the chart.~Reviewed interim history and current functioning. Reviewed vital signs,~Labs/ Radiology~and current medications noted below. Continue current treatment with the changes noted in the dictated addendum note Assessment: Vital Signs: Vital Signs Date Time Temp Pulse Resp B/P (MAP) Pulse Ox O2 Delivery O2 Flow Rate FiO2 02/05/19 15:35 99.0 82 18 149/79 (102) 96 01/31/19 15:43 Room Air I&O Intake and Output 02/05/19 06:59 Intake Total 960 ml Balance 960 ml Intake Oral 960 ml # Voids 1 Labs: Laboratory Tests Test 02/05/19 07:17 02/05/19 11:55 02/05/19 17:12 02/05/19 19:08 Glucose (Fingerstick) 203 mg/dL (70-99) H 244 mg/dL (70-99) H 216 mg/dL (70-99) H 345 mg/dL (70-99) H Current Medications: Meds: Current Medications Acetaminophen (Tylenol) 650 mg PRN Q6HRS PRN PO PAIN / TEMP Last administered on 01/31/19at 18:47; Start 01/30/19 at 16:15 Multi-Ingredient Ointment (Analgesic [place]) 1 kimberley PRN QID PRN TP MUSCLE PAIN; Start 01/30/19 at 16:15 Al Hydroxide/Mg Hydroxide (Mylanta Plus Xs) 15 ml PRN AFTMEALHC PRN PO DYSPEPSIA; Start 01/30/19 at 16:15 Magnesium Hydroxide (Milk Of Magnesia) 2,400 mg PRN QHS PRN PO CONSTIPATION; Start 01/30/19 at 16:15 Citalopram Hydrobromide (CeleXA) 10 mg DAILY PO Last administered on 02/04/19at 08:08; Start 01/31/19 at 09:00; Stop 02/04/19 at 17:01; Status DC Acetaminophen/ Hydrocodone Bitart (Lortab 5/325) 1 tab PRN Q4HRS PRN PO PAIN; Start 01/30/19 at 18:45 Ibuprofen (Motrin) 400 mg PRN Q6HRS PRN PO PAIN / TEMP; Start 01/30/19 at 18:45 Lisinopril (Prinivil) 10 mg DAILY PO Last administered on 02/05/19 08:29; Start 01/31/19 at 09:00 Amlodipine Besylate (Norvasc) 10 mg DAILY PO Last administered on 02/05/19 08:29; Start 01/31/19 at 09:00 Atorvastatin Calcium (Lipitor) 10 mg QHS PO ; Start 01/30/19 at 21:00; Stop 01/30/19 at 21:00; Status DC Vitamin D (Vitamin D3) 5,000 unit DAILY PO Last administered on 02/05/19 08:29; Start 01/31/19 at 09:00 Glipizide (Glucotrol) 10 mg DAILYAC PO Last administered on 02/01/19 08:52; Start 01/31/19 at 07:30; Stop 02/02/19 at 08:42; Status DC Insulin Glargine (Lantus) 30 units DAILY SQ Last administered on 02/05/19 08:33; Start 01/31/19 at 09:00 Linagliptin (Tradjenta) 5 mg DAILY PO Last administered on 02/05/19 08:30; Start 01/31/19 at 09:00 Atorvastatin Calcium (Lipitor) 10 mg DAILY PO Last administered on 02/05/19 08:29; Start 01/31/19 at 09:00 Insulin Human Lispro (HumaLOG) 0-7 UNITS TIDWMEALS SQ Last administered on 02/05/19at 17:40; Start 01/31/19 at 17:00 Dextrose (Dextrose 50%-Water Syringe) 12.5 gm PRN Q15MIN PRN IV SEE COMMENTS; Start 01/31/19 at 15:15 Glipizide (Glucotrol) 10 mg 1X ONCE PO Last administered on 02/02/19at 08:44; Start 02/02/19 at 08:45; Stop 02/02/19 at 08:46; Status DC Glipizide (Glucotrol) 10 mg DAILYAC PO ; Start 02/03/19 at 07:30; Stop 02/03/19 at 07:30; Status DC Mirtazapine (Remeron) 7.5 mg QHS PO Last administered on 02/05/19 20:18; Start 02/02/19 at 21:00 Rivastigmine (Exelon) 1 patch DAILY TD Last administered on 02/05/19 08:32; Start 02/03/19 at 09:00 Insulin Glargine (Lantus) 8 units QHS SQ Last administered on 02/05/19 20:21; Start 02/02/19 at 21:00 Citalopram Hydrobromide (CeleXA) 20 mg DAILY PO Last administered on 02/05/19 08:34; Start 02/05/19 at 09:00 Risperidone (RisperDAL) 0.25 mg HS PO Last administered on 02/05/19 20:22; Start 02/05/19 at 21:00 Active Scripts Active Reported Ibuprofen 400 Mg Tablet 400 Mg PO PRN Q6HRS PRN Hydrocodone-Apap 5-325 (Hydrocodone Bit/Acetaminophen) 1 Each Tablet 1 Tab PO PRN Q4HRS PRN Lisinopril 10 Mg Tablet 10 Mg PO DAILY Tradjenta (Linagliptin) 5 Mg Tablet 5 Mg PO DAILY Levemir (Insulin Detemir) 100 Unit/1 Ml Vial 30 Unit SQ DAILY Glipizide 10 Mg Tablet 10 Mg PO DAILY Citalopram Hbr (Citalopram Hydrobromide) 10 Mg Tablet 10 Mg PO DAILY Vitamin D (Cholecalciferol (Vitamin D3)) 1,000 Unit Capsule 5,000 Unit PO DAILY Atorvastatin Calcium 10 Mg Tablet 10 Mg PO QHS Amlodipine Besylate 10 Mg Tablet 10 Mg PO DAILY I have reviewed the current psychotropics carefully including drug interactions. Risk benefit ratio favors no change other than as noted in my dictated progress note. Diagnosis: Problems: (1) Dementia, vascular (2) Dementia of the Alzheimer's type (3) Dementia, Alzheimer's, with behavior disturbance (4) Dementia in Alzheimer's disease with depression (5) Major neurocognitive disorder due to Alzheimer's disease, with behavioral disturbance RADHA OLGUIN MD February 05, 2019 22:27
--- NOTE | 2019-02-06 00:48 | NUR ---
Nursing Note Pt jovial and cooperative this pm. No grandiosity or arguments about meds. Compliant with meds and assessment.
[2019-02-06 05:46] VITALS: BP 175/83
[2019-02-06] MEDS: CHOLECALCIFEROL (VITAMIN D3) 1,000 UNIT TABLET PO SCH (08:06)
[2019-02-06] MEDS: INSULIN LISPRO 300 UNITS/3 ML INSULN.PEN. SQ SCH ×3 (08:06→17:02)
[2019-02-06] MEDS: LINAGLIPTIN 5 MG TABLET PO SCH (08:07)
[2019-02-06] MEDS: RIVASTIGMINE 4.6MG PATCH. TD SCH (08:07)
[2019-02-06] MEDS: ATORVASTATIN CALCIUM 10 MG TABLET. PO SCH (08:07)
[2019-02-06] MEDS: LISINOPRIL 10 MG TABLET PO SCH (08:07)
[2019-02-06] MEDS: amLODIPine BESYLATE 10 MG TABLET PO SCH (08:07)
[2019-02-06] MEDS: CITALOPRAM 20 MG TABLET. PO SCH (08:07)
[2019-02-06] MEDS: INSULIN GLARGINE 300 UNITS/3 ML INSULN.PEN. SQ SCH ×2 (08:09→19:50)
[2019-02-06 15:55] VITALS: BP 137/83
--- NOTE | 2019-02-06 18:53 | PN ---
DATE: 02/04/2019 PSYCHIATRIC PROGRESS NOTE This is a late entry 02/04/2019, covers elements not covered in my initial note. SUBJECTIVE: I met with the patient the evening of 02/04/2019. The patient slept 5 hours previous night. He naps off and on during the day. He remains withdrawn, spends much time in his room, appears depressed, still psychotic. REVIEW OF SYSTEMS: No CV, , pulmonary, eye, ENT system symptoms on review. Reliability poor. MENTAL STATUS EXAM: Oriented to himself. Insight, judgment, recent and remote memory, attention, concentration, fund of knowledge poor, consistent with his diagnoses mentioned in my initial note. PLAN: No change from initial note. MAN Vandana OLGUIN MD DR: ALAN/elina JOB#: [id number] / [id number]
[2019-02-06] MEDS: MIRTAZAPINE 7.5 MG TABLET. PO SCH (19:47)
[2019-02-06] MEDS: risperiDONE 0.25 MG TABLET. PO SCH (19:48)
--- NOTE | 2019-02-06 20:21 | PN ---
DATE: 02/05/2019 PSYCHIATRIC PROGRESS NOTE This late entry 02/05/2019 covers elements not covered in my initial note. SUBJECTIVE: I met with the patient in the evening of 02/05/2019 staffed at a treatment team meeting in the morning. The patient slept 5 hours. Appetite 75%. We attempted to get the patient's guardian to join us for the treatment team meeting in the morning, we were unsuccessful. He has been grandiose, refused a shower, fighting during the shower, fixated on the fact that he is a [employer] and we will use this as a positive reinforcement to help compliance with his ADLs and showering. At home, he had not showered reportedly for years. He does appear psychotic given the entire presentation of his history in addition to his worsening dementia. REVIEW OF SYSTEMS: No CV, , pulmonary, eye, ENT system symptoms on review. Reliability poor. MENTAL STATUS EXAM: Oriented to himself. Insight, judgment, recent and remote memory, attention, concentration, fund of knowledge poor, consistent with his diagnosis mentioned in my initial note. PLAN: No change from initial note. Start Risperdal 0.25 mg at bedtime. Continue Celexa, Remeron and Exelon patch as before. MAN Vandana OLGUIN MD DR: ALAN/elina JOB#: [id number] / [id number]
--- NOTE | 2019-02-06 22:36 | PDOC ---
Exam Note: Marlo Note: Please also refer to the separate dictated note~for this date of service dictated separately.~Patient seen individually. Discussed the patient with Nursing staff reviewed the chart.~Reviewed interim history and current functioning. Reviewed vital signs,~Labs/ Radiology~and current medications noted below. Continue current treatment with the changes noted in the dictated addendum note Assessment: Vital Signs: Vital Signs Date Time Temp Pulse Resp B/P (MAP) Pulse Ox O2 Delivery O2 Flow Rate FiO2 02/06/19 15:55 98.6 84 20 137/83 (101) 96 01/31/19 15:43 Room Air I&O Intake and Output 02/06/19 06:59 Intake Total 1320 ml Balance 1320 ml Intake Oral 1320 ml # Voids 1 Labs: Laboratory Tests Test 02/06/19 07:27 02/06/19 11:52 02/06/19 16:41 02/06/19 19:19 Glucose (Fingerstick) 171 mg/dL (70-99) H 200 mg/dL (70-99) H 230 mg/dL (70-99) H 350 mg/dL (70-99) H Current Medications: Meds: Current Medications Acetaminophen (Tylenol) 650 mg PRN Q6HRS PRN PO PAIN / TEMP Last administered on 01/31/19at 18:47; Start 01/30/19 at 16:15 Multi-Ingredient Ointment (Analgesic [place]) 1 kimberley PRN QID PRN TP MUSCLE PAIN; Start 01/30/19 at 16:15 Al Hydroxide/Mg Hydroxide (Mylanta Plus Xs) 15 ml PRN AFTMEALHC PRN PO DYSPEPSIA; Start 01/30/19 at 16:15 Magnesium Hydroxide (Milk Of Magnesia) 2,400 mg PRN QHS PRN PO CONSTIPATION; Start 01/30/19 at 16:15 Citalopram Hydrobromide (CeleXA) 10 mg DAILY PO Last administered on 02/04/19at 08:08; Start 01/31/19 at 09:00; Stop 02/04/19 at 17:01; Status DC Acetaminophen/ Hydrocodone Bitart (Lortab 5/325) 1 tab PRN Q4HRS PRN PO PAIN; Start 01/30/19 at 18:45 Ibuprofen (Motrin) 400 mg PRN Q6HRS PRN PO PAIN / TEMP; Start 01/30/19 at 18:45 Lisinopril (Prinivil) 10 mg DAILY PO Last administered on 02/06/19 08:07; Start 01/31/19 at 09:00 Amlodipine Besylate (Norvasc) 10 mg DAILY PO Last administered on 02/06/19 08:07; Start 01/31/19 at 09:00 Atorvastatin Calcium (Lipitor) 10 mg QHS PO ; Start 01/30/19 at 21:00; Stop 01/30/19 at 21:00; Status DC Vitamin D (Vitamin D3) 5,000 unit DAILY PO Last administered on 02/06/19 08:06; Start 01/31/19 at 09:00 Glipizide (Glucotrol) 10 mg DAILYAC PO Last administered on 02/01/19at 08:52; Start 01/31/19 at 07:30; Stop 02/02/19 at 08:42; Status DC Insulin Glargine (Lantus) 30 units DAILY SQ Last administered on 02/06/19 08:09; Start 01/31/19 at 09:00 Linagliptin (Tradjenta) 5 mg DAILY PO Last administered on 02/06/19 08:07; Start 01/31/19 at 09:00 Atorvastatin Calcium (Lipitor) 10 mg DAILY PO Last administered on 02/06/19 08:07; Start 01/31/19 at 09:00 Insulin Human Lispro (HumaLOG) 0-7 UNITS TIDWMEALS SQ Last administered on 02/06/19at 17:02; Start 01/31/19 at 17:00 Dextrose (Dextrose 50%-Water Syringe) 12.5 gm PRN Q15MIN PRN IV SEE COMMENTS; Start 01/31/19 at 15:15 Glipizide (Glucotrol) 10 mg 1X ONCE PO Last administered on 02/02/19at 08:44; Start 02/02/19 at 08:45; Stop 02/02/19 at 08:46; Status DC Glipizide (Glucotrol) 10 mg DAILYAC PO ; Start 02/03/19 at 07:30; Stop 02/03/19 at 07:30; Status DC Mirtazapine (Remeron) 7.5 mg QHS PO Last administered on 02/06/19 19:47; Start 02/02/19 at 21:00 Rivastigmine (Exelon) 1 patch DAILY TD Last administered on 02/06/19 08:07; Start 02/03/19 at 09:00 Insulin Glargine (Lantus) 8 units QHS SQ Last administered on 02/06/19 19:50; Start 02/02/19 at 21:00 Citalopram Hydrobromide (CeleXA) 20 mg DAILY PO Last administered on 02/06/19 08:07; Start 02/05/19 at 09:00 Risperidone (RisperDAL) 0.25 mg HS PO Last administered on 02/06/19 19:48; Start 02/05/19 at 21:00 Active Scripts Active Reported Ibuprofen 400 Mg Tablet 400 Mg PO PRN Q6HRS PRN Hydrocodone-Apap 5-325 (Hydrocodone Bit/Acetaminophen) 1 Each Tablet 1 Tab PO PRN Q4HRS PRN Lisinopril 10 Mg Tablet 10 Mg PO DAILY Tradjenta (Linagliptin) 5 Mg Tablet 5 Mg PO DAILY Levemir (Insulin Detemir) 100 Unit/1 Ml Vial 30 Unit SQ DAILY Glipizide 10 Mg Tablet 10 Mg PO DAILY Citalopram Hbr (Citalopram Hydrobromide) 10 Mg Tablet 10 Mg PO DAILY Vitamin D (Cholecalciferol (Vitamin D3)) 1,000 Unit Capsule 5,000 Unit PO DAILY Atorvastatin Calcium 10 Mg Tablet 10 Mg PO QHS Amlodipine Besylate 10 Mg Tablet 10 Mg PO DAILY I have reviewed the current psychotropics carefully including drug interactions. Risk benefit ratio favors no change other than as noted in my dictated progress note. Diagnosis: Problems: (1) Dementia, vascular (2) Dementia of the Alzheimer's type (3) Dementia, Alzheimer's, with behavior disturbance (4) Dementia in Alzheimer's disease with depression (5) Major neurocognitive disorder due to Alzheimer's disease, with behavioral disturbance RADHA OLGUIN MD February 06, 2019 22:36
--- NOTE | 2019-02-06 22:44 | NUR ---
Nursing Note Pt refusing to do ADL's at HS, 5 staff descended upon him with a show of force and he acquiesced to them. He allowed staff to change his clothing and clean the BM from his backside. Now resting. Pt APACHE and very short term memory loss.
[2019-02-07 05:40] VITALS: BP 115/73
[2019-02-07] MEDS: ATORVASTATIN CALCIUM 10 MG TABLET. PO SCH (08:09)
[2019-02-07] MEDS: CHOLECALCIFEROL (VITAMIN D3) 1,000 UNIT TABLET PO SCH (08:09)
[2019-02-07] MEDS: LINAGLIPTIN 5 MG TABLET PO SCH (08:10)
[2019-02-07] MEDS: CITALOPRAM 20 MG TABLET. PO SCH (08:10)
[2019-02-07] MEDS: RIVASTIGMINE 4.6MG PATCH. TD SCH (08:10)
[2019-02-07] MEDS: LISINOPRIL 10 MG TABLET PO SCH (08:10)
[2019-02-07] MEDS: amLODIPine BESYLATE 10 MG TABLET PO SCH (08:10)
[2019-02-07] MEDS: INSULIN GLARGINE 300 UNITS/3 ML INSULN.PEN. SQ SCH ×2 (08:13→19:46)
[2019-02-07] MEDS: INSULIN LISPRO 300 UNITS/3 ML INSULN.PEN. SQ SCH ×3 (08:14→17:21)
[2019-02-07 15:35] VITALS: BP 132/82
--- NOTE | 2019-02-07 18:00 | NUR ---
Patient is talkative and grandiose at times, otherwise no behaviors today. Will report to oncoming shift.
[2019-02-07] MEDS: MIRTAZAPINE 7.5 MG TABLET. PO SCH (19:44)
[2019-02-07] MEDS: risperiDONE 0.25 MG TABLET. PO SCH (19:45)
--- NOTE | 2019-02-07 22:31 | PDOC ---
Exam Note: Marlo Note: Please also refer to the separate dictated note~for this date of service dictated separately.~Patient seen individually. Discussed the patient with Nursing staff reviewed the chart.~Reviewed interim history and current functioning. Reviewed vital signs,~Labs/ Radiology~and current medications noted below. Continue current treatment with the changes noted in the dictated addendum note Assessment: Vital Signs: Vital Signs Date Time Temp Pulse Resp B/P (MAP) Pulse Ox O2 Delivery O2 Flow Rate FiO2 02/07/19 15:35 98.4 106 18 132/82 (99) 95 I&O Intake and Output 02/07/19 06:59 Intake Total 960 ml Balance 960 ml Intake Oral 960 ml Labs: Laboratory Tests Test 02/07/19 07:24 02/07/19 11:43 02/07/19 16:41 02/07/19 19:26 Glucose (Fingerstick) 169 mg/dL (70-99) H 308 mg/dL (70-99) H 333 mg/dL (70-99) H 289 mg/dL (70-99) H Current Medications: Meds: Current Medications Acetaminophen (Tylenol) 650 mg PRN Q6HRS PRN PO PAIN / TEMP Last administered on 01/31/19at 18:47; Start 01/30/19 at 16:15 Multi-Ingredient Ointment (Analgesic [place]) 1 kimberley PRN QID PRN TP MUSCLE PAIN; Start 01/30/19 at 16:15 Al Hydroxide/Mg Hydroxide (Mylanta Plus Xs) 15 ml PRN AFTMEALHC PRN PO DYSPEPSIA; Start 01/30/19 at 16:15 Magnesium Hydroxide (Milk Of Magnesia) 2,400 mg PRN QHS PRN PO CONSTIPATION; Start 01/30/19 at 16:15 Citalopram Hydrobromide (CeleXA) 10 mg DAILY PO Last administered on 02/04/19at 08:08; Start 01/31/19 at 09:00; Stop 02/04/19 at 17:01; Status DC Acetaminophen/ Hydrocodone Bitart (Lortab 5/325) 1 tab PRN Q4HRS PRN PO PAIN; Start 01/30/19 at 18:45 Ibuprofen (Motrin) 400 mg PRN Q6HRS PRN PO PAIN / TEMP; Start 01/30/19 at 18:45 Lisinopril (Prinivil) 10 mg DAILY PO Last administered on 02/07/19 08:10; Start 01/31/19 at 09:00 Amlodipine Besylate (Norvasc) 10 mg DAILY PO Last administered on 02/07/19at 08:10; Start 01/31/19 at 09:00 Atorvastatin Calcium (Lipitor) 10 mg QHS PO ; Start 01/30/19 at 21:00; Stop 01/30/19 at 21:00; Status DC Vitamin D (Vitamin D3) 5,000 unit DAILY PO Last administered on 02/07/19 08:09; Start 01/31/19 at 09:00 Glipizide (Glucotrol) 10 mg DAILYAC PO Last administered on 02/01/19 08:52; Start 01/31/19 at 07:30; Stop 02/02/19 at 08:42; Status DC Insulin Glargine (Lantus) 30 units DAILY SQ Last administered on 02/07/19at 08:13; Start 01/31/19 at 09:00; Stop 02/07/19 at 14:42; Status DC Linagliptin (Tradjenta) 5 mg DAILY PO Last administered on 02/07/19 08:10; Start 01/31/19 at 09:00 Atorvastatin Calcium (Lipitor) 10 mg DAILY PO Last administered on 02/07/19at 08:09; Start 01/31/19 at 09:00 Insulin Human Lispro (HumaLOG) 0-7 UNITS TIDWMEALS SQ Last administered on 02/07/19at 17:21; Start 01/31/19 at 17:00 Dextrose (Dextrose 50%-Water Syringe) 12.5 gm PRN Q15MIN PRN IV SEE COMMENTS; Start 01/31/19 at 15:15 Glipizide (Glucotrol) 10 mg 1X ONCE PO Last administered on 02/02/19at 08:44; Start 02/02/19 at 08:45; Stop 02/02/19 at 08:46; Status DC Glipizide (Glucotrol) 10 mg DAILYAC PO ; Start 02/03/19 at 07:30; Stop 02/03/19 at 07:30; Status DC Mirtazapine (Remeron) 7.5 mg QHS PO Last administered on 02/07/19 19:44; Start 02/02/19 at 21:00 Rivastigmine (Exelon) 1 patch DAILY TD Last administered on 02/07/19at 08:10; Start 02/03/19 at 09:00; Stop 02/07/19 at 19:32; Status DC Insulin Glargine (Lantus) 8 units QHS SQ Last administered on 02/06/19 19:50; Start 02/02/19 at 21:00; Stop 02/07/19 at 14:42; Status DC Citalopram Hydrobromide (CeleXA) 20 mg DAILY PO Last administered on 02/07/19at 08:10; Start 02/05/19 at 09:00 Risperidone (RisperDAL) 0.25 mg HS PO Last administered on 02/07/19at 19:45; S tart 02/05/19 at 21:00 Insulin Glargine (Lantus) 35 units DAILY SQ ; Start 02/08/19 at 09:00 Insulin Glargine (Lantus) 12 units QHS SQ Last administered on 02/07/19at 19:46; Start 02/07/19 at 21:00 Rivastigmine (Exelon) 1 patch DAILY TD ; Start 02/08/19 at 09:00 Active Scripts Active Reported Ibuprofen 400 Mg Tablet 400 Mg PO PRN Q6HRS PRN Hydrocodone-Apap 5-325 (Hydrocodone Bit/Acetaminophen) 1 Each Tablet 1 Tab PO PRN Q4HRS PRN Lisinopril 10 Mg Tablet 10 Mg PO DAILY Tradjenta (Linagliptin) 5 Mg Tablet 5 Mg PO DAILY Levemir (Insulin Detemir) 100 Unit/1 Ml Vial 30 Unit SQ DAILY Glipizide 10 Mg Tablet 10 Mg PO DAILY Citalopram Hbr (Citalopram Hydrobromide) 10 Mg Tablet 10 Mg PO DAILY Vitamin D (Cholecalciferol (Vitamin D3)) 1,000 Unit Capsule 5,000 Unit PO DAILY Atorvastatin Calcium 10 Mg Tablet 10 Mg PO QHS Amlodipine Besylate 10 Mg Tablet 10 Mg PO DAILY I have reviewed the current psychotropics carefully including drug interactions. Risk benefit ratio favors no change other than as noted in my dictated progress note. Diagnosis: Problems: (1) Dementia, vascular (2) Dementia of the Alzheimer's type (3) Dementia, Alzheimer's, with behavior disturbance (4) Dementia in Alzheimer's disease with depression (5) Major neurocognitive disorder due to Alzheimer's disease, with behavioral disturbance RADHA OLGUIN MD February 07, 2019 22:31
--- NOTE | 2019-02-08 00:33 | NUR ---
Pt located in his room resting in bed. Pt appeared irritated when approached with HS medications, but compliant. Pt very resistive with changing clothes into pajamas. Pt eventually conceded and let this nurse help him with changing.
[2019-02-08 06:54] VITALS: BP 146/76
[2019-02-08] MEDS: INSULIN LISPRO 300 UNITS/3 ML INSULN.PEN. SQ SCH ×3 (08:00→17:09)
[2019-02-08] MEDS: CHOLECALCIFEROL (VITAMIN D3) 1,000 UNIT TABLET PO SCH (08:02)
[2019-02-08] MEDS: CITALOPRAM 20 MG TABLET. PO SCH (08:03)
[2019-02-08] MEDS: amLODIPine BESYLATE 10 MG TABLET PO SCH (08:03)
[2019-02-08] MEDS: LISINOPRIL 10 MG TABLET PO SCH (08:03)
[2019-02-08] MEDS: ATORVASTATIN CALCIUM 10 MG TABLET. PO SCH (08:04)
[2019-02-08] MEDS: LINAGLIPTIN 5 MG TABLET PO SCH (08:04)
[2019-02-08] MEDS: RIVASTIGMINE 9.5MG PATCH. TD SCH (08:08)
[2019-02-08] MEDS: INSULIN GLARGINE 300 UNITS/3 ML INSULN.PEN. SQ SCH ×2 (08:08→20:21)
[2019-02-08 15:57] VITALS: BP 134/83
--- NOTE | 2019-02-08 18:35 | NUR ---
Patient spent most of the day in day room participating in group activities. He was talkative when approached and compliant with meds and assessment. Will continue to monitor and report to oncoming shift.
--- NOTE | 2019-02-08 19:43 | PN ---
DATE: 02/06/2019 PSYCHIATRIC PROGRESS NOTE This late entry 02/06/2019 covers elements not covered in my initial note. SUBJECTIVE: I met with the patient in the evening of 02/06/2019. The patient remains confused, slept 6 hours previous night. He has been otherwise cooperative, though hygiene is impaired and he really has to be encouraged to comply with this. REVIEW OF SYSTEMS: No CV, , pulmonary, eye, ENT system symptoms on review. Reliability poor. MENTAL STATUS EXAM: Oriented to himself. Insight, judgment, recent and remote memory, attention, concentration, fund of knowledge poor, consistent with his diagnosis mentioned in my initial note. PLAN: No change from initial note. MAN Vandana OLGUIN MD DR: ALAN/elina JOB#: [id number] / [id number]
[2019-02-08] MEDS: risperiDONE 0.25 MG TABLET. PO SCH (19:52)
[2019-02-08] MEDS: MIRTAZAPINE 7.5 MG TABLET. PO SCH (19:52)
--- NOTE | 2019-02-08 22:24 | PDOC ---
Exam Note: Marlo Note: Please also refer to the separate dictated note~for this date of service dictated separately.~Patient seen individually. Discussed the patient with Nursing staff reviewed the chart.~Reviewed interim history and current functioning. Reviewed vital signs,~Labs/ Radiology~and current medications noted below. Continue current treatment with the changes noted in the dictated addendum note Assessment: Vital Signs: Vital Signs Date Time Temp Pulse Resp B/P (MAP) Pulse Ox O2 Delivery O2 Flow Rate FiO2 02/08/19 15:57 97.2 78 18 134/83 (100) 96 I&O Intake and Output 02/08/19 06:59 Intake Total 1200 ml Balance 1200 ml Intake Oral 1200 ml # Bowel Movements 2 Labs: Laboratory Tests Test 02/08/19 07:27 02/08/19 11:39 02/08/19 16:51 02/08/19 19:46 Glucose (Fingerstick) 99 mg/dL (70-99) 217 mg/dL (70-99) H 210 mg/dL (70-99) H 395 mg/dL (70-99) H Current Medications: Meds: Current Medications Acetaminophen (Tylenol) 650 mg PRN Q6HRS PRN PO PAIN / TEMP Last administered on 01/31/19at 18:47; Start 01/30/19 at 16:15 Multi-Ingredient Ointment (Analgesic [place]) 1 kimberley PRN QID PRN TP MUSCLE PAIN; Start 01/30/19 at 16:15 Al Hydroxide/Mg Hydroxide (Mylanta Plus Xs) 15 ml PRN AFTMEALHC PRN PO DYSPEPSIA; Start 01/30/19 at 16:15 Magnesium Hydroxide (Milk Of Magnesia) 2,400 mg PRN QHS PRN PO CONSTIPATION; Start 01/30/19 at 16:15 Citalopram Hydrobromide (CeleXA) 10 mg DAILY PO Last administered on 02/04/19at 08:08; Start 01/31/19 at 09:00; Stop 02/04/19 at 17:01; Status DC Acetaminophen/ Hydrocodone Bitart (Lortab 5/325) 1 tab PRN Q4HRS PRN PO PAIN; Start 01/30/19 at 18:45 Ibuprofen (Motrin) 400 mg PRN Q6HRS PRN PO PAIN / TEMP; Start 01/30/19 at 18:45 Lisinopril (Prinivil) 10 mg DAILY PO Last administered on 02/08/19at 08:03; Start 01/31/19 at 09:00 Amlodipine Besylate (Norvasc) 10 mg DAILY PO Last administered on 02/08/19at 08:03; Start 01/31/19 at 09:00 Atorvastatin Calcium (Lipitor) 10 mg QHS PO ; Start 01/30/19 at 21:00; Stop 01/30/19 at 21:00; Status DC Vitamin D (Vitamin D3) 5,000 unit DAILY PO Last administered on 02/08/19 08:02; Start 01/31/19 at 09:00 Glipizide (Glucotrol) 10 mg DAILYAC PO Last administered on 02/01/19at 08:52; Start 01/31/19 at 07:30; Stop 02/02/19 at 08:42; Status DC Insulin Glargine (Lantus) 30 units DAILY SQ Last administered on 02/07/19at 08: 13; Start 01/31/19 at 09:00; Stop 02/07/19 at 14:42; Status DC Linagliptin (Tradjenta) 5 mg DAILY PO Last administered on 02/08/19at 08:04; Start 01/31/19 at 09:00 Atorvastatin Calcium (Lipitor) 10 mg DAILY PO Last administered on 02/08/19at 08:04; Start 01/31/19 at 09:00 Insulin Human Lispro (HumaLOG) 0-7 UNITS TIDWMEALS SQ Last administered on 02/08/19at 17:09; Start 01/31/19 at 17:00 Dextrose (Dextrose 50%-Water Syringe) 12.5 gm PRN Q15MIN PRN IV SEE COMMENTS; Start 01/31/19 at 15:15 Glipizide (Glucotrol) 10 mg 1X ONCE PO Last administered on 02/02/19at 08:44; Start 02/02/19 at 08:45; Stop 02/02/19 at 08:46; Status DC Glipizide (Glucotrol) 10 mg DAILYAC PO ; Start 02/03/19 at 07:30; Stop 02/03/19 at 07:30; Status DC Mirtazapine (Remeron) 7.5 mg QHS PO Last administered on 02/08/19 19:52; Start 02/02/19 at 21:00 Rivastigmine (Exelon) 1 patch DAILY TD Last administered on 02/07/19 08:10; Start 02/03/19 at 09:00; Stop 02/07/19 at 19:32; Status DC Insulin Glargine (Lantus) 8 units QHS SQ Last administered on 02/06/19 19:50; Start 02/02/19 at 21:00; Stop 02/07/19 at 14:42; Status DC Citalopram Hydrobromide (CeleXA) 20 mg DAILY PO Last administered on 02/08/19 08:03; Start 02/05/19 at 09:00 Risperidone (RisperDAL) 0.25 mg HS PO Last administered on 02/08/19 19:52; Start 02/05/19 at 21:00 Insulin Glargine (Lantus) 35 units DAILY SQ Last administered on 02/08/19 08:08; Start 02/08/19 at 09:00 Insulin Glargine (Lantus) 12 units QHS SQ Last administered on 02/08/19 20:21; Start 02/07/19 at 21:00 Rivastigmine (Exelon) 1 patch DAILY TD Last administered on 02/08/19 08:08; Start 02/08/19 at 09:00 Active Scripts Active Reported Ibuprofen 400 Mg Tablet 400 Mg PO PRN Q6HRS PRN Hydrocodone-Apap 5-325 (Hydrocodone Bit/Acetaminophen) 1 Each Tablet 1 Tab PO PRN Q4HRS PRN Lisinopril 10 Mg Tablet 10 Mg PO DAILY Tradjenta (Linagliptin) 5 Mg Tablet 5 Mg PO DAILY Levemir (Insulin Detemir) 100 Unit/1 Ml Vial 30 Unit SQ DAILY Glipizide 10 Mg Tablet 10 Mg PO DAILY Citalopram Hbr (Citalopram Hydrobromide) 10 Mg Tablet 10 Mg PO DAILY Vitamin D (Cholecalciferol (Vitamin D3)) 1,000 Unit Capsule 5,000 Unit PO DAILY Atorvastatin Calcium 10 Mg Tablet 10 Mg PO QHS Amlodipine Besylate 10 Mg Tablet 10 Mg PO DAILY I have reviewed the current psychotropics carefully including drug interactions. Risk benefit ratio favors no change other than as noted in my dictated progress note. Diagnosis: Problems: (1) Dementia, vascular (2) Dementia of the Alzheimer's type (3) Dementia, Alzheimer's, with behavior disturbance (4) Dementia in Alzheimer's disease with depression (5) Major neurocognitive disorder due to Alzheimer's disease, with behavioral disturbance RADHA OLGUIN MD February 08, 2019 22:24
--- NOTE | 2019-02-09 02:15 | NUR ---
Pt located in the dayroom this evening. Compliant with whole medications. Pt resistive to shower tonight, answering "No!" multiple times. Pt eventually relented to staff and took a shower.
[2019-02-09 06:11] VITALS: BP 172/77
[2019-02-09] MEDS: ATORVASTATIN CALCIUM 10 MG TABLET. PO SCH (07:54)
[2019-02-09] MEDS: LISINOPRIL 10 MG TABLET PO SCH (07:54)
[2019-02-09] MEDS: RIVASTIGMINE 9.5MG PATCH. TD SCH (07:54)
[2019-02-09] MEDS: CITALOPRAM 20 MG TABLET. PO SCH (07:54)
[2019-02-09] MEDS: INSULIN LISPRO 300 UNITS/3 ML INSULN.PEN. SQ SCH ×3 (07:55→17:23)
[2019-02-09] MEDS: amLODIPine BESYLATE 10 MG TABLET PO SCH (07:55)
[2019-02-09] MEDS: LINAGLIPTIN 5 MG TABLET PO SCH (07:55)
[2019-02-09] MEDS: INSULIN GLARGINE 300 UNITS/3 ML INSULN.PEN. SQ SCH ×2 (07:57→20:06)
[2019-02-09] MEDS: CHOLECALCIFEROL (VITAMIN D3) 1,000 UNIT TABLET PO SCH (07:58)
--- NOTE | 2019-02-09 11:53 | PN ---
DATE: 02/08/2019 PSYCHIATRIC PROGRESS NOTE This note covers elements not covered in my initial note 02/08/2019. SUBJECTIVE: I met with the patient evening of 02/08/2019. The patient slept 7-1/2 hours previous night. He has been resistive with the changing his clothes and with showers constantly states "no," but later does it. REVIEW OF SYSTEMS: No CV, , pulmonary, eye, ENT system symptoms on review. Reliability poor. MENTAL STATUS EXAM: Oriented to himself. Insight, judgment, recent and remote memory, attention, concentration, fund of knowledge poor, consistent with his diagnosis mentioned in my initial note. PLAN: No change from initial note. MAN Vandana OLGUIN MD DR: ALAN/elina JOB#: [id number] / [id number]
[2019-02-09] MEDS ORDERED: SELENIUM SULFIDE 1% TOPICAL SHAMPOO 207ML BOTTLE. TP PRN (15:00)
[2019-02-09 16:04] VITALS: BP 156/91
--- NOTE | 2019-02-09 17:48 | NUR ---
patient located in day room at shift change. He has been calm, cooperative, disorganized, pleasantly confused, and compliant with medications throughout the day; he participated in group activities as well. Will continue to monitor and report to oncoming shift.
[2019-02-09] MEDS: MIRTAZAPINE 7.5 MG TABLET. PO SCH (20:03)
[2019-02-09] MEDS: risperiDONE 0.25 MG TABLET. PO SCH (20:03)
--- NOTE | 2019-02-09 22:29 | PDOC ---
Exam Note: Marlo Note: Please also refer to the separate dictated note~for this date of service dictated separately.~Patient seen individually. Discussed the patient with Nursing staff reviewed the chart.~Reviewed interim history and current functioning. Reviewed vital signs,~Labs/ Radiology~and current medications noted below. Continue current treatment with the changes noted in the dictated addendum note Assessment: Vital Signs: Vital Signs Date Time Temp Pulse Resp B/P (MAP) Pulse Ox O2 Delivery O2 Flow Rate FiO2 02/09/19 16:04 97.9 89 20 156/91 (112) 94 I&O Intake and Output 02/09/19 06:59 Intake Total 1080 ml Balance 1080 ml Intake Oral 1080 ml Labs: Laboratory Tests Test 02/09/19 07:24 02/09/19 11:44 02/09/19 16:58 02/09/19 19:17 Glucose (Fingerstick) 125 mg/dL (70-99) H 164 mg/dL (70-99) H 166 mg/dL (70-99) H 214 mg/dL (70-99) H Current Medications: Meds: Current Medications Acetaminophen (Tylenol) 650 mg PRN Q6HRS PRN PO PAIN / TEMP Last administered on 01/31/19at 18:47; Start 01/30/19 at 16:15 Multi-Ingredient Ointment (Analgesic [place]) 1 kimberley PRN QID PRN TP MUSCLE PAIN; Start 01/30/19 at 16:15 Al Hydroxide/Mg Hydroxide (Mylanta Plus Xs) 15 ml PRN AFTMEALHC PRN PO DYSPEPSIA; Start 01/30/19 at 16:15 Magnesium Hydroxide (Milk Of Magnesia) 2,400 mg PRN QHS PRN PO CONSTIPATION; Start 01/30/19 at 16:15 Citalopram Hydrobromide (CeleXA) 10 mg DAILY PO Last administered on 02/04/19at 08:08; Start 01/31/19 at 09:00; Stop 02/04/19 at 17:01; Status DC Acetaminophen/ Hydrocodone Bitart (Lortab 5/325) 1 tab PRN Q4HRS PRN PO PAIN; Start 01/30/19 at 18:45 Ibuprofen (Motrin) 400 mg PRN Q6HRS PRN PO PAIN / TEMP; Start 01/30/19 at 18:45 Lisinopril (Prinivil) 10 mg DAILY PO Last administered on 02/09/19 07:54; Start 01/31/19 at 09:00 Amlodipine Besylate (Norvasc) 10 mg DAILY PO Last administered on 02/09/19 07:55; Start 01/31/19 at 09:00 Atorvastatin Calcium (Lipitor) 10 mg QHS PO ; Start 01/30/19 at 21:00; Stop 01/30/19 at 21:00; Status DC Vitamin D (Vitamin D3) 5,000 unit DAILY PO Last administered on 02/09/19 07:58; Start 01/31/19 at 09:00 Glipizide (Glucotrol) 10 mg DAILYAC PO Last administered on 02/01/19 08:52; Start 01/31/19 at 07:30; Stop 02/02/19 at 08:42; Status DC Insulin Glargine (Lantus) 30 units DAILY SQ Last administered on 02/07/19 08:13; Start 01/31/19 at 09:00; Stop 02/07/19 at 14:42; Status DC Linagliptin (Tradjenta) 5 mg DAILY PO Last administered on 02/09/19 07:55; Start 01/31/19 at 09:00 Atorvastatin Calcium (Lipitor) 10 mg DAILY PO Last administered on 02/09/19 07:54; Start 01/31/19 at 09:00 Insulin Human Lispro (HumaLOG) 0-7 UNITS TIDWMEALS SQ Last administered on 02/09/19 17:23; Start 01/31/19 at 17:00 Dextrose (Dextrose 50%-Water Syringe) 12.5 gm PRN Q15MIN PRN IV SEE COMMENTS; Start 01/31/19 at 15:15 Glipizide (Glucotrol) 10 mg 1X ONCE PO Last administered on 02/02/19at 08:44; Start 02/02/19 at 08:45; Stop 02/02/19 at 08:46; Status DC Glipizide (Glucotrol) 10 mg DAILYAC PO ; Start 02/03/19 at 07:30; Stop 02/03/19 at 07:30; Status DC Mirtazapine (Remeron) 7.5 mg QHS PO Last administered on 02/09/19 20:03; Start 02/02/19 at 21:00 Rivastigmine (Exelon) 1 patch DAILY TD Last administered on 02/07/19 08:10; Start 02/03/19 at 09:00; Stop 02/07/19 at 19:32; Status DC Insulin Glargine (Lantus) 8 units QHS SQ Last administered on 02/06/19 19:50; Start 02/02/19 at 21:00; Stop 02/07/19 at 14:42; Status DC Citalopram Hydrobromide (CeleXA) 20 mg DAILY PO Last administered on 02/09/19 07:54; Start 02/05/19 at 09:00 Risperidone (RisperDAL) 0.25 mg HS PO Last administered on 02/09/19 20:03; Start 02/05/19 at 21:00 Insulin Glargine (Lantus) 35 units DAILY SQ Last administered on 02/09/19 07:57; Start 02/08/19 at 09:00 Insulin Glargine (Lantus) 12 units QHS SQ Last administered on 02/09/19 20:06; Start 02/07/19 at 21:00 Rivastigmine (Exelon) 1 patch DAILY TD Last administered on 02/09/19 07:54; Start 02/08/19 at 09:00 Selenium Sulfide (Selsun) 1 kimberley 3X/WEEK PRN TP DANDRUFF; Start 02/09/19 at 15:00 Active Scripts Active Reported Ibuprofen 400 Mg Tablet 400 Mg PO PRN Q6HRS PRN Hydrocodone-Apap 5-325 (Hydrocodone Bit/Acetaminophen) 1 Each Tablet 1 Tab PO PRN Q4HRS PRN Lisinopril 10 Mg Tablet 10 Mg PO DAILY Tradjenta (Linagliptin) 5 Mg Tablet 5 Mg PO DAILY Levemir (Insulin Detemir) 100 Unit/1 Ml Vial 30 Unit SQ DAILY Glipizide 10 Mg Tablet 10 Mg PO DAILY Citalopram Hbr (Citalopram Hydrobromide) 10 Mg Tablet 10 Mg PO DAILY Vitamin D (Cholecalciferol (Vitamin D3)) 1,000 Unit Capsule 5,000 Unit PO DAILY Atorvastatin Calcium 10 Mg Tablet 10 Mg PO QHS Amlodipine Besylate 10 Mg Tablet 10 Mg PO DAILY I have reviewed the current psychotropics carefully including drug interactions. Risk benefit ratio favors no change other than as noted in my dictated progress note. Diagnosis: Problems: (1) Dementia, vascular (2) Dementia of the Alzheimer's type (3) Dementia, Alzheimer's, with behavior disturbance (4) Dementia in Alzheimer's disease with depression (5) Major neurocognitive disorder due to Alzheimer's disease, with behavioral disturbance RADHA OLGUIN MD February 09, 2019 22:29
--- NOTE | 2019-02-09 23:07 | PN ---
DATE: 02/09/2019 PSYCHIATRIC PROGRESS NOTE This note covers elements not covered in my initial note 02/09/2019. SUBJECTIVE: I met with the patient in the evening of 02/09/2019. The patient slept 5-3/4 hours previous night. He refused to shower at night, remains confused, anxious. REVIEW OF SYSTEMS: No CV, , pulmonary, eye, ENT system symptoms on review. Reliability poor. MENTAL STATUS EXAM: Oriented to himself. Insight, judgment, recent and remote memory, attention, concentration, fund of knowledge poor, consistent with his diagnosis mentioned in my initial note. PLAN: No change from initial note. MAN Vandana OLGUIN MD DR: ALAN/elina JOB#: [id number] / [id number]
--- NOTE | 2019-02-09 23:10 | NUR ---
Pt sitting calmly in the dayroom watching a movie this evening. Pt initially refusing his medications, stating he did not need help sleeping; however he was compliant eventually. Pt is now currently resting in bed.
--- NOTE | 2019-02-10 00:30 | PN ---
DATE: 02/07/2019 PSYCHIATRIC PROGRESS NOTE This late entry 02/07/2019 covers elements not covered in my initial note. SUBJECTIVE: I met with the patient in the evening. The patient slept 4-1/2 hours previous night. Previous evening, he was somewhat tangential in his verbalizations, repetitive incontinent of bowel. Blood sugar was elevated. Lantus has been increased. REVIEW OF SYSTEMS: No CV, , pulmonary, eye, ENT system symptoms on review. Reliability poor. MENTAL STATUS EXAM: Oriented to himself. Insight, judgment, recent and remote memory, attention, concentration, fund of knowledge poor, consistent with his diagnosis mentioned in my initial note. PLAN: Increase Exelon patch from 4.6 mg a day to 9.5 mg a day. Rest unchanged. MAN Vandana OLGUIN MD DR: ALAN/elina JOB#: [id number] / [id number]
[2019-02-10 05:57] VITALS: BP 137/83
[2019-02-10 07:25] LABS: BASO # 0.1 x10^3/uL (0.0-0.2); BASO % 1 % (0-3); EOS # 0.3 x10^3/uL (0.0-0.7); EOS % 4 % (0-3); HEMATOCRIT 44.9 % (39.0-53.0); HEMOGLOBIN 14.7 g/dL (13.0-17.5); LYMPH # 3.9 x10^3/uL (1.0-4.8); LYMPH % 45 % (24-48); MEAN CORPUSCULAR HEMOGLOBIN 26 pg (25-35); MEAN CORPUSCULAR HGB CONC 33 g/dL (31-37); MEAN CORPUSCULAR VOLUME 80 fL (79-100); MONO # 0.6 x10^3/uL (0.0-1.1); MONO % 7 % (0-9); NEUT # 3.8 x10^3uL (1.8-7.7); NEUT % 44 % (31-73); PLATELET COUNT 155 x10^3/uL (140-400); RED BLOOD COUNT 5.64 x10^6/uL (4.30-5.70); RED CELL DISTRIBUTION WIDTH 14.8 % (11.5-14.5); WHITE BLOOD COUNT 8.6 x10^3/uL (4.0-11.0)
[2019-02-10 07:47] LABS: ALBUMIN 3.4 g/dL (3.4-5.0); CALCIUM 9.2 mg/dL (8.5-10.1); GFR 72.6; POTASSIUM 3.9 mmol/L (3.5-5.1); TOTAL BILIRUBIN 0.4 mg/dL (0.2-1.0); TOTAL PROTEIN 6.8 g/dL (6.4-8.2)
[2019-02-10] MEDS: RIVASTIGMINE 9.5MG PATCH. TD SCH (07:55)
[2019-02-10] MEDS: CHOLECALCIFEROL (VITAMIN D3) 1,000 UNIT TABLET PO SCH (07:55)
[2019-02-10] MEDS: LISINOPRIL 10 MG TABLET PO SCH (07:56)
[2019-02-10] MEDS: amLODIPine BESYLATE 10 MG TABLET PO SCH (07:56)
[2019-02-10] MEDS: ATORVASTATIN CALCIUM 10 MG TABLET. PO SCH (07:56)
[2019-02-10] MEDS: LINAGLIPTIN 5 MG TABLET PO SCH (07:56)
[2019-02-10] MEDS: CITALOPRAM 20 MG TABLET. PO SCH (07:56)
[2019-02-10] MEDS: INSULIN LISPRO 300 UNITS/3 ML INSULN.PEN. SQ SCH ×3 (07:57→17:39)
[2019-02-10] MEDS: INSULIN GLARGINE 300 UNITS/3 ML INSULN.PEN. SQ SCH ×2 (07:59→21:00)
[2019-02-10 16:28] VITALS: BP 148/84
--- NOTE | 2019-02-10 18:28 | NUR ---
patient located in day room at shift change. He has been calm, cooperative, disorganized, and pleasantly confused; he participated in group activities during the morning and afternoon. patient questioned his medications, but after they were named off, he took them all without any issue. Will continue to monitor and report to oncoming shift.
[2019-02-10] MEDS: MIRTAZAPINE 7.5 MG TABLET. PO SCH (19:41)
[2019-02-10] MEDS: risperiDONE 0.25 MG TABLET. PO SCH (19:41)
--- NOTE | 2019-02-10 22:32 | PDOC ---
Exam Note: Marlo Note: Please also refer to the separate dictated note~for this date of service dictated separately.~Patient seen individually. Discussed the patient with Nursing staff reviewed the chart.~Reviewed interim history and current functioning. Reviewed vital signs,~Labs/ Radiology~and current medications noted below. Continue current treatment with the changes noted in the dictated addendum note Assessment: Vital Signs: Vital Signs Date Time Temp Pulse Resp B/P (MAP) Pulse Ox O2 Delivery O2 Flow Rate FiO2 02/10/19 16:28 97.8 87 18 148/84 (105) 95 Room Air I&O Intake and Output 02/10/19 06:59 Intake Total 1620 ml Balance 1620 ml Intake Oral 1620 ml # Voids 1 Labs: Laboratory Tests Test 02/10/19 07:08 02/10/19 07:30 02/10/19 11:57 02/10/19 17:11 White Blood Count 8.6 x10^3/uL (4.0-11.0) Red Blood Count 5.64 x10^6/uL (4.30-5.70) Hemoglobin 14.7 g/dL (13.0-17.5) Hematocrit 44.9 % (39.0-53.0) Mean Corpuscular Volume 80 fL (79-100) Mean Corpuscular Hemoglobin 26 pg (25-35) Mean Corpuscular Hemoglobin Concent 33 g/dL (31-37) Red Cell Distribution Width 14.8 % (11.5-14.5) H Platelet Count 155 x10^3/uL (140-400) Neutrophils (%) (Auto) 44 % (31-73) Lymphocytes (%) (Auto) 45 % (24-48) Monocytes (%) (Auto) 7 % (0-9) Eosinophils (%) (Auto) 4 % (0-3) H Basophils (%) (Auto) 1 % (0-3) Neutrophils # (Auto) 3.8 x10^3uL (1.8-7.7) Lymphocytes # (Auto) 3.9 x10^3/uL (1.0-4.8) Monocytes # (Auto) 0.6 x10^3/uL (0.0-1.1) Eosinophils # (Auto) 0.3 x10^3/uL (0.0-0.7) Basophils # (Auto) 0.1 x10^3/uL (0.0-0.2) Sodium Level 141 mmol/L (136-145) Potassium Level 3.9 mmol/L (3.5-5.1) Chloride Level 102 mmol/L (98-107) Carbon Dioxide Level 30 mmol/L (21-32) Anion Gap 9 (6-14) Blood Urea Nitrogen 16 mg/dL (8-26) Creatinine 1.0 mg/dL (0.7-1.3) Estimated GFR (Cockcroft-Gault) 72.6 BUN/Creatinine Ratio 16 (6-20) Glucose Level 151 mg/dL (70-99) H Calcium Level 9.2 mg/dL (8.5-10.1) Total Bilirubin 0.4 mg/dL (0.2-1.0) Aspartate Amino Transferase (AST) 10 U/L (15-37) L Alanine Aminotransferase (ALT) 20 U/L (16-63) Alkaline Phosphatase 93 U/L (46-116) Total Protein 6.8 g/dL (6.4-8.2) Albumin 3.4 g/dL (3.4-5.0) Albumin/Globulin Ratio 1.0 (1.0-1.7) Glucose (Fingerstick) 146 mg/dL (70-99) H 255 mg/dL (70-99) H 177 mg/dL (70-99) H Test 02/10/19 19:53 Glucose (Fingerstick) 288 mg/dL (70-99) H Current Medications: Meds: Current Medications Acetaminophen (Tylenol) 650 mg PRN Q6HRS PRN PO PAIN / TEMP Last administered on 01/31/19at 18:47; Start 01/30/19 at 16:15 Multi-Ingredient Ointment (Analgesic [place]) 1 kimberley PRN QID PRN TP MUSCLE PAIN; Start 01/30/19 at 16:15 Al Hydroxide/Mg Hydroxide (Mylanta Plus Xs) 15 ml PRN AFTMEALHC PRN PO DYSPEPSIA; Start 01/30/19 at 16:15 Magnesium Hydroxide (Milk Of Magnesia) 2,400 mg PRN QHS PRN PO CONSTIPATION; Start 01/30/19 at 16:15 Citalopram Hydrobromide (CeleXA) 10 mg DAILY PO Last administered on 02/04/19 08:08; Start 01/31/19 at 09:00; Stop 02/04/19 at 17:01; Status DC Acetaminophen/ Hydrocodone Bitart (Lortab 5/325) 1 tab PRN Q4HRS PRN PO PAIN; Start 01/30/19 at 18:45 Ibuprofen (Motrin) 400 mg PRN Q6HRS PRN PO PAIN / TEMP; Start 01/30/19 at 18:45 Lisinopril (Prinivil) 10 mg DAILY PO Last administered on 02/10/19 07:56; Start 01/31/19 at 09:00 Amlodipine Besylate (Norvasc) 10 mg DAILY PO Last administered on 02/10/19 07:56; Start 01/31/19 at 09:00 Atorvastatin Calcium (Lipitor) 10 mg QHS PO ; Start 01/30/19 at 21:00; Stop 01/30/19 at 21:00; Status DC Vitamin D (Vitamin D3) 5,000 unit DAILY PO Last administered on 02/10/19 07:55; Start 01/31/19 at 09:00 Glipizide (Glucotrol) 10 mg DAILYAC PO Last administered on 02/01/19 08:52; Start 01/31/19 at 07:30; Stop 02/02/19 at 08:42; Status DC Insulin Glargine (Lantus) 30 units DAILY SQ Last administered on 02/07/19 08:13; Start 01/31/19 at 09:00; Stop 02/07/19 at 14:42; Status DC Linagliptin (Tradjenta) 5 mg DAILY PO Last administered on 02/10/19 07:56; Start 01/31/19 at 09:00 Atorvastatin Calcium (Lipitor) 10 mg DAILY PO Last administered on 02/10/19 07:56; Start 01/31/19 at 09:00 Insulin Human Lispro (HumaLOG) 0-7 UNITS TIDWMEALS SQ Last administered on 02/10/19 17:39; Start 01/31/19 at 17:00 Dextrose (Dextrose 50%-Water Syringe) 12.5 gm PRN Q15MIN PRN IV SEE COMMENTS; Start 01/31/19 at 15:15 Glipizide (Glucotrol) 10 mg 1X ONCE PO Last administered on 02/02/19at 08:44; Start 02/02/19 at 08:45; Stop 02/02/19 at 08:46; Status DC Glipizide (Glucotrol) 10 mg DAILYAC PO ; Start 02/03/19 at 07:30; Stop 02/03/19 at 07:30; Status DC Mirtazapine (Remeron) 7.5 mg QHS PO Last administered on 02/10/19at 19:41; Start 02/02/19 at 21:00 Rivastigmine (Exelon) 1 patch DAILY TD Last administered on 02/07/19at 08:10; Start 02/03/19 at 09:00; Stop 02/07/19 at 19:32; Status DC Insulin Glargine (Lantus) 8 units QHS SQ Last administered on 02/06/19 19:50; Start 02/02/19 at 21:00; Stop 02/07/19 at 14:42; Status DC Citalopram Hydrobromide (CeleXA) 20 mg DAILY PO Last administered on 02/10/19 07:56; Start 02/05/19 at 09:00 Risperidone (RisperDAL) 0.25 mg HS PO Last administered on 02/10/19 19:41; Start 02/05/19 at 21:00 Insulin Glargine (Lantus) 35 units DAILY SQ Last administered on 02/10/19 07:59; Start 02/08/19 at 09:00 Insulin Glargine (Lantus) 12 units QHS SQ Last administered on 02/10/19at 21:00; Start 02/07/19 at 21:00 Rivastigmine (Exelon) 1 patch DAILY TD Last administered on 02/10/19 07:55; Start 02/08/19 at 09:00 Selenium Sulfide (Selsun) 1 kimberley 3X/WEEK PRN TP DANDRUFF; Start 02/09/19 at 15:00 Active Scripts Active Reported Ibuprofen 400 Mg Tablet 400 Mg PO PRN Q6HRS PRN Hydrocodone-Apap 5-325 (Hydrocodone Bit/Acetaminophen) 1 Each Tablet 1 Tab PO PRN Q4HRS PRN Lisinopril 10 Mg Tablet 10 Mg PO DAILY Tradjenta (Linagliptin) 5 Mg Tablet 5 Mg PO DAILY Levemir (Insulin Detemir) 100 Unit/1 Ml Vial 30 Unit SQ DAILY Glipizide 10 Mg Tablet 10 Mg PO DAILY Citalopram Hbr (Citalopram Hydrobromide) 10 Mg Tablet 10 Mg PO DAILY Vitamin D (Cholecalciferol (Vitamin D3)) 1,000 Unit Capsule 5,000 Unit PO DAILY Atorvastatin Calcium 10 Mg Tablet 10 Mg PO QHS Amlodipine Besylate 10 Mg Tablet 10 Mg PO DAILY I have reviewed the current psychotropics carefully including drug interactions. Risk benefit ratio favors no change other than as noted in my dictated progress note. Diagnosis: Problems: (1) Dementia, vascular (2) Dementia of the Alzheimer's type (3) Dementia, Alzheimer's, with behavior disturbance (4) Dementia in Alzheimer's disease with depression (5) Major neurocognitive disorder due to Alzheimer's disease, with behavioral disturbance RADHA OLGUIN MD February 10, 2019 22:32
--- NOTE | 2019-02-10 22:38 | PN ---
DATE: 02/10/2019 PSYCHIATRIC PROGRESS NOTE This note covers elements not covered in my initial note 02/10/2019. SUBJECTIVE: I met with the patient in the evening. The patient slept 5-1/4 hours previous night. He wanted to know each of his meds and what they were for, which is a positive sign because otherwise he has been quite oblivious of this. REVIEW OF SYSTEMS: No CV, , pulmonary, eye, ENT system symptoms on review. Reliability poor. MENTAL STATUS EXAM: Oriented to himself. Insight, judgment, recent and remote memory, attention, concentration, fund of knowledge poor, consistent with his diagnosis mentioned in my initial note. PLAN: No change from initial note. MAN Vandana OLGUIN MD DR: ALAN/elina JOB#: [id number] / [id number]
--- NOTE | 2019-02-11 02:43 | NUR ---
Early in shift pt in day room watching TV and social. Took meds whole without difficulty. No behaviors exhibited.
[2019-02-11 05:54] VITALS: BP 125/79
[2019-02-11] MEDS: RIVASTIGMINE 9.5MG PATCH. TD SCH (08:16)
[2019-02-11] MEDS: amLODIPine BESYLATE 10 MG TABLET PO SCH (08:17)
[2019-02-11] MEDS: CHOLECALCIFEROL (VITAMIN D3) 1,000 UNIT TABLET PO SCH (08:17)
[2019-02-11] MEDS: LISINOPRIL 10 MG TABLET PO SCH (08:18)
[2019-02-11] MEDS: LINAGLIPTIN 5 MG TABLET PO SCH (08:18)
[2019-02-11] MEDS: CITALOPRAM 20 MG TABLET. PO SCH (08:18)
[2019-02-11] MEDS: ATORVASTATIN CALCIUM 10 MG TABLET. PO SCH (08:18)
[2019-02-11] MEDS: INSULIN GLARGINE 300 UNITS/3 ML INSULN.PEN. SQ SCH ×2 (08:20→19:40)
[2019-02-11] MEDS: INSULIN LISPRO 300 UNITS/3 ML INSULN.PEN. SQ SCH ×3 (08:22→17:27)
--- NOTE | 2019-02-11 09:55 | NUR ---
SW received a call from pt guardian, Nikole, to discuss pt discharge plans. Nikole hopes to have pt placed at the [facility] if financials work out for him. She would then like to have a referral sent out eventually to them so they would be able to take pt at the beginning of next week.
--- NOTE | 2019-02-11 10:05 | NUR ---
Assumed care of patient at aprox 0700. Patient is resting but awake in room at shift change. Patient is in day room at time of assessment. Patient is calm and compliant with meds and assessment. Patient is tankful for medications. After assessment patient returned to room and is resting at this time. Will continue to monitor.
[2019-02-11 16:24] VITALS: BP 124/76
[2019-02-11] MEDS: risperiDONE 0.25 MG TABLET. PO SCH (19:33)
[2019-02-11] MEDS: MIRTAZAPINE 7.5 MG TABLET. PO SCH (19:34)
--- NOTE | 2019-02-11 22:23 | PDOC ---
Exam Note: Marlo Note: Please also refer to the separate dictated note~for this date of service dictated separately.~Patient seen individually. Discussed the patient with Nursing staff reviewed the chart.~Reviewed interim history and current functioning. Reviewed vital signs,~Labs/ Radiology~and current medications noted below. Continue current treatment with the changes noted in the dictated addendum note Assessment: Vital Signs: Vital Signs Date Time Temp Pulse Resp B/P (MAP) Pulse Ox O2 Delivery O2 Flow Rate FiO2 02/11/19 16:24 98.6 87 14 124/76 (92) 93 02/10/19 16:28 Room Air I&O Intake and Output 02/11/19 06:59 Intake Total 1440 ml Balance 1440 ml Intake Oral 1440 ml # Bowel Movements 1 Labs: Laboratory Tests Test 02/11/19 07:31 02/11/19 12:03 02/11/19 16:45 02/11/19 19:13 Glucose (Fingerstick) 171 mg/dL (70-99) H 160 mg/dL (70-99) H 187 mg/dL (70-99) H 221 mg/dL (70-99) H Current Medications: Meds: Current Medications Acetaminophen (Tylenol) 650 mg PRN Q6HRS PRN PO PAIN / TEMP Last administered on 01/31/19at 18:47; Start 01/30/19 at 16:15 Multi-Ingredient Ointment (Analgesic [place]) 1 kimberley PRN QID PRN TP MUSCLE PAIN; Start 01/30/19 at 16:15 Al Hydroxide/Mg Hydroxide (Mylanta Plus Xs) 15 ml PRN AFTMEALHC PRN PO DYSPEPSIA; Start 01/30/19 at 16:15 Magnesium Hydroxide (Milk Of Magnesia) 2,400 mg PRN QHS PRN PO CONSTIPATION; Start 01/30/19 at 16:15 Citalopram Hydrobromide (CeleXA) 10 mg DAILY PO Last administered on 02/04/19at 08:08; Start 01/31/19 at 09:00; Stop 02/04/19 at 17:01; Status DC Acetaminophen/ Hydrocodone Bitart (Lortab 5/325) 1 tab PRN Q4HRS PRN PO PAIN; Start 01/30/19 at 18:45 Ibuprofen (Motrin) 400 mg PRN Q6HRS PRN PO PAIN / TEMP; Start 01/30/19 at 18:45 Lisinopril (Prinivil) 10 mg DAILY PO Last administered on 02/11/19 08:18; Start 01/31/19 at 09:00 Amlodipine Besylate (Norvasc) 10 mg DAILY PO Last administered on 02/11/19 08:17; Start 01/31/19 at 09:00 Atorvastatin Calcium (Lipitor) 10 mg QHS PO ; Start 01/30/19 at 21:00; Stop 01/30/19 at 21:00; Status DC Vitamin D (Vitamin D3) 5,000 unit DAILY PO Last administered on 02/11/19 08:17; Start 01/31/19 at 09:00 Glipizide (Glucotrol) 10 mg DAILYAC PO Last administered on 02/01/19 08:52; Start 01/31/19 at 07:30; Stop 02/02/19 at 08:42; Status DC Insulin Glargine (Lantus) 30 units DAILY SQ Last administered on 02/07/19 08:13; Start 01/31/19 at 09:00; Stop 02/07/19 at 14:42; Status DC Linagliptin (Tradjenta) 5 mg DAILY PO Last administered on 02/11/19 08:18; Start 01/31/19 at 09:00 Atorvastatin Calcium (Lipitor) 10 mg DAILY PO Last administered on 02/11/19 08:18; Start 01/31/19 at 09:00 Insulin Human Lispro (HumaLOG) 0-7 UNITS TIDWMEALS SQ Last administered on 02/11/19 17:27; Start 01/31/19 at 17:00 Dextrose (Dextrose 50%-Water Syringe) 12.5 gm PRN Q15MIN PRN IV SEE COMMENTS; Start 01/31/19 at 15:15 Glipizide (Glucotrol) 10 mg 1X ONCE PO Last administered on 02/02/19 08:44; Start 02/02/19 at 08:45; Stop 02/02/19 at 08:46; Status DC Glipizide (Glucotrol) 10 mg DAILYAC PO ; Start 02/03/19 at 07:30; Stop 02/03/19 at 07:30; Status DC Mirtazapine (Remeron) 7.5 mg QHS PO Last administered on 02/11/19 19:34; Start 02/02/19 at 21:00 Rivastigmine (Exelon) 1 patch DAILY TD Last administered on 02/07/19 08:10; Start 02/03/19 at 09:00; Stop 02/07/19 at 19:32; Status DC Insulin Glargine (Lantus) 8 units QHS SQ Last administered on 02/06/19 19:50; Start 02/02/19 at 21:00; Stop 02/07/19 at 14:42; Status DC Citalopram Hydrobromide (CeleXA) 20 mg DAILY PO Last administered on 02/11/19 08:18; Start 02/05/19 at 09:00 Risperidone (RisperDAL) 0.25 mg HS PO Last administered on 02/11/19 19:33; Start 02/05/19 at 21:00 Insulin Glargine (Lantus) 35 units DAILY SQ Last administered on 02/11/19 08:20; Start 02/08/19 at 09:00 Insulin Glargine (Lantus) 12 units QHS SQ Last administered on 02/11/19 19:40; Start 02/07/19 at 21:00 Rivastigmine (Exelon) 1 patch DAILY TD Last administered on 02/11/19 08:16; Start 02/08/19 at 09:00 Selenium Sulfide (Selsun) 1 kimberley 3X/WEEK PRN TP DANDRUFF; Start 02/09/19 at 15:00 Active Scripts Active Reported Ibuprofen 400 Mg Tablet 400 Mg PO PRN Q6HRS PRN Hydrocodone-Apap 5-325 (Hydrocodone Bit/Acetaminophen) 1 Each Tablet 1 Tab PO PRN Q4HRS PRN Lisinopril 10 Mg Tablet 10 Mg PO DAILY Tradjenta (Linagliptin) 5 Mg Tablet 5 Mg PO DAILY Levemir (Insulin Detemir) 100 Unit/1 Ml Vial 30 Unit SQ DAILY Glipizide 10 Mg Tablet 10 Mg PO DAILY Citalopram Hbr (Citalopram Hydrobromide) 10 Mg Tablet 10 Mg PO DAILY Vitamin D (Cholecalciferol (Vitamin D3)) 1,000 Unit Capsule 5,000 Unit PO DAILY Atorvastatin Calcium 10 Mg Tablet 10 Mg PO QHS Amlodipine Besylate 10 Mg Tablet 10 Mg PO DAILY I have reviewed the current psychotropics carefully including drug interactions. Risk benefit ratio favors no change other than as noted in my dictated progress note. Diagnosis: Problems: (1) Dementia, vascular (2) Dementia of the Alzheimer's type (3) Dementia, Alzheimer's, with behavior disturbance (4) Dementia in Alzheimer's disease with depression (5) Major neurocognitive disorder due to Alzheimer's disease, with behavioral disturbance RADHA OLGUIN MD February 11, 2019 22:23
--- NOTE | 2019-02-12 05:32 | NUR ---
Pt compliant with meds and no behaviors this shift.
[2019-02-12 06:12] VITALS: BP 154/70
[2019-02-12] MEDS: INSULIN LISPRO 300 UNITS/3 ML INSULN.PEN. SQ SCH ×3 (08:00→17:00)
--- NOTE | 2019-02-12 09:29 | NUR ---
WEEKLY ACTIVITY THERAPY NOTE Date of Admission: 01/30/2019 Date of AT Assessment: 02/03/2019 Goal aimed: to increase engagement Initial goal: Pt. will participate in at least five individual or (Activity Therapy) groups before discharge Weekly progress towards goal: on track 11/18 (02/07 Chair Yoga/complete the phrase, 02/07 Western movie, 02/08 Patriotic sings along) Group participation level: minimal Weekly highlights: full participation in both groups on Saturday and singing in microphone on Saturday afternoon Behaviors observed: sleeping often, leaves when group starts at times explaining he can't hear Plan: no change to goal Beneficial adaptations: possibly a pocketalker
[2019-02-12] MEDS: RIVASTIGMINE 9.5MG PATCH. TD SCH (09:31)
[2019-02-12] MEDS: LISINOPRIL 10 MG TABLET PO SCH (09:31)
[2019-02-12] MEDS: CITALOPRAM 20 MG TABLET. PO SCH (09:32)
[2019-02-12] MEDS: CHOLECALCIFEROL (VITAMIN D3) 1,000 UNIT TABLET PO SCH (09:32)
[2019-02-12] MEDS: ATORVASTATIN CALCIUM 10 MG TABLET. PO SCH (09:32)
[2019-02-12] MEDS: amLODIPine BESYLATE 10 MG TABLET PO SCH (09:32)
[2019-02-12] MEDS: INSULIN GLARGINE 300 UNITS/3 ML INSULN.PEN. SQ SCH ×2 (09:35→19:44)
[2019-02-12] MEDS: LINAGLIPTIN 5 MG TABLET PO SCH (09:38)
--- NOTE | 2019-02-12 09:51 | NUR ---
WEEKLY NOTE: Pt is eating 100% of meals and sleeping on average 6.5 hours. Pt can be resistive to medications but does eventually take them. Pt does resist showers and can be verbally aggressive. Pt will be on Luvox 25mg then increase to 50mg. Pt will be placed in a step down program in [place] then can hopefully be in [place].
[2019-02-12 15:42] VITALS: BP 133/80
--- NOTE | 2019-02-12 15:44 | NUR ---
BRENNAN returned call to Alannah Hernandez, a medicaid billing clerk who has been assigned to pt case. She was not available and asked to contact BRENNAN back after her meeting.
--- NOTE | 2019-02-12 18:13 | NUR ---
Pt calm and compliant with meds and assessment. Pt withdrawn to his room most of the day. No behaviors noted this shift.
[2019-02-12] MEDS: MIRTAZAPINE 7.5 MG TABLET. PO SCH (19:41)
[2019-02-12] MEDS: risperiDONE 0.25 MG TABLET. PO SCH (19:42)
--- NOTE | 2019-02-12 21:22 | NUR ---
Nursing note: Assumed care of pt in the day room where he was watching a movie. He was pleasant, compliant, and interactive. No agitation and no c/o pain.
--- NOTE | 2019-02-12 22:20 | PDOC ---
Exam Note: Marlo Note: Please also refer to the separate dictated note~for this date of service dictated separately.~Patient seen individually. Discussed the patient with Nursing staff reviewed the chart.~Reviewed interim history and current functioning. Reviewed vital signs,~Labs/ Radiology~and current medications noted below. Continue current treatment with the changes noted in the dictated addendum note Assessment: Vital Signs: Vital Signs Date Time Temp Pulse Resp B/P (MAP) Pulse Ox O2 Delivery O2 Flow Rate FiO2 02/12/19 15:42 98.2 97 18 133/80 (97) 95 02/10/19 16:28 Room Air I&O Intake and Output 02/12/19 07:00 Intake Total 960 ml Balance 960 ml Intake Oral 960 ml # Voids 1 Labs: Laboratory Tests Test 02/12/19 08:06 02/12/19 11:32 02/12/19 16:26 02/12/19 19:03 Glucose (Fingerstick) 94 mg/dL (70-99) 205 mg/dL (70-99) H 184 mg/dL (70-99) H 267 mg/dL (70-99) H Current Medications: Meds: Current Medications Acetaminophen (Tylenol) 650 mg PRN Q6HRS PRN PO PAIN / TEMP Last administered on 01/31/19at 18:47; Start 01/30/19 at 16:15 Multi-Ingredient Ointment (Analgesic [place]) 1 kimberley PRN QID PRN TP MUSCLE PAIN; Start 01/30/19 at 16:15 Al Hydroxide/Mg Hydroxide (Mylanta Plus Xs) 15 ml PRN AFTMEALHC PRN PO DYSPEPSIA; Start 01/30/19 at 16:15 Magnesium Hydroxide (Milk Of Magnesia) 2,400 mg PRN QHS PRN PO CONSTIPATION; Start 01/30/19 at 16:15 Citalopram Hydrobromide (CeleXA) 10 mg DAILY PO Last administered on 02/04/19at 08:08; Start 01/31/19 at 09:00; Stop 02/04/19 at 17:01; Status DC Acetaminophen/ Hydrocodone Bitart (Lortab 5/325) 1 tab PRN Q4HRS PRN PO PAIN; Start 01/30/19 at 18:45 Ibuprofen (Motrin) 400 mg PRN Q6HRS PRN PO PAIN / TEMP; Start 01/30/19 at 18:45 Lisinopril (Prinivil) 10 mg DAILY PO Last administered on 02/12/19 09:31; Start 01/31/19 at 09:00 Amlodipine Besylate (Norvasc) 10 mg DAILY PO Last administered on 02/12/19 09:32; Start 01/31/19 at 09:00 Atorvastatin Calcium (Lipitor) 10 mg QHS PO ; Start 01/30/19 at 21:00; Stop 01/30/19 at 21:00; Status DC Vitamin D (Vitamin D3) 5,000 unit DAILY PO Last administered on 02/12/19 09:32; Start 01/31/19 at 09:00 Glipizide (Glucotrol) 10 mg DAILYAC PO Last administered on 02/01/19 08:52; Start 01/31/19 at 07:30; Stop 02/02/19 at 08:42; Status DC Insulin Glargine (Lantus) 30 units DAILY SQ Last administered on 02/07/19 08:13; Start 01/31/19 at 09:00; Stop 02/07/19 at 14:42; Status DC Linagliptin (Tradjenta) 5 mg DAILY PO Last administered on 02/12/19 09:38; Start 01/31/19 at 09:00 Atorvastatin Calcium (Lipitor) 10 mg DAILY PO Last administered on 02/12/19 09:32; Start 01/31/19 at 09:00 Insulin Human Lispro (HumaLOG) 0-7 UNITS TIDWMEALS SQ Last administered on 02/12/19 15:04; Start 01/31/19 at 17:00 Dextrose (Dextrose 50%-Water Syringe) 12.5 gm PRN Q15MIN PRN IV SEE COMMENTS; Start 01/31/19 at 15:15 Glipizide (Glucotrol) 10 mg 1X ONCE PO Last administered on 02/02/19 08:44; Start 02/02/19 at 08:45; Stop 02/02/19 at 08:46; Status DC Glipizide (Glucotrol) 10 mg DAILYAC PO ; Start 02/03/19 at 07:30; Stop 02/03/19 at 07:30; Status DC Mirtazapine (Remeron) 7.5 mg QHS PO Last administered on 02/12/19 19:41; Start 02/02/19 at 21:00 Rivastigmine (Exelon) 1 patch DAILY TD Last administered on 02/07/19 08:10; Start 02/03/19 at 09:00; Stop 02/07/19 at 19:32; Status DC Insulin Glargine (Lantus) 8 units QHS SQ Last administered on 02/06/19 19:50; Start 02/02/19 at 21:00; Stop 02/07/19 at 14:42; Status DC Citalopram Hydrobromide (CeleXA) 20 mg DAILY PO Last administered on 02/12/19 09:32; Start 02/05/19 at 09:00; Stop 02/12/19 at 11:05; Status DC Risperidone (RisperDAL) 0.25 mg HS PO Last administered on 02/12/19 19:42; Start 02/05/19 at 21:00 Insulin Glargine (Lantus) 35 units DAILY SQ Last administered on 02/12/19 09:35; Start 02/08/19 at 09:00 Insulin Glargine (Lantus) 12 units QHS SQ Last administered on 02/12/19 19:44; Start 02/07/19 at 21:00 Rivastigmine (Exelon) 1 patch DAILY TD Last administered on 02/12/19 09:31; Start 02/08/19 at 09:00 Selenium Sulfide (Selsun) 1 kimberley 3X/WEEK PRN TP DANDRUFF; Start 02/09/19 at 15:00 Fluvoxamine Maleate (Luvox) 25 mg DAILY PO ; Start 02/13/19 at 09:00; Stop 02/17/19 at 12:00 Fluvoxamine Maleate (Luvox) 50 mg DAILY PO ; Start 02/15/19 at 09:00; Stop 02/15/19 at 09:00; Status DC Fluvoxamine Maleate (Luvox) 50 mg DAILY PO ; Start 02/18/19 at 09:00 Olanzapine (ZyPREXA ZYDIS) 2.5 mg PRN Q2HR PRN PO PSYCHOSIS; Start 02/12/19 at 12:00 Active Scripts Active Reported Ibuprofen 400 Mg Tablet 400 Mg PO PRN Q6HRS PRN Hydrocodone-Apap 5-325 (Hydrocodone Bit/Acetaminophen) 1 Each Tablet 1 Tab PO PRN Q4HRS PRN Lisinopril 10 Mg Tablet 10 Mg PO DAILY Tradjenta (Linagliptin) 5 Mg Tablet 5 Mg PO DAILY Levemir (Insulin Detemir) 100 Unit/1 Ml Vial 30 Unit SQ DAILY Glipizide 10 Mg Tablet 10 Mg PO DAILY Citalopram Hbr (Citalopram Hydrobromide) 10 Mg Tablet 10 Mg PO DAILY Vitamin D (Cholecalciferol (Vitamin D3)) 1,000 Unit Capsule 5,000 Unit PO DAILY Atorvastatin Calcium 10 Mg Tablet 10 Mg PO QHS Amlodipine Besylate 10 Mg Tablet 10 Mg PO DAILY I have reviewed the current psychotropics carefully including drug interactions. Risk benefit ratio favors no change other than as noted in my dictated progress note. Diagnosis: Problems: (1) Dementia, vascular (2) Dementia of the Alzheimer's type (3) Dementia, Alzheimer's, with behavior disturbance (4) Dementia in Alzheimer's disease with depression (5) Major neurocognitive disorder due to Alzheimer's disease, with behavioral disturbance RADHA OLGUIN MD February 12, 2019 22:20
[2019-02-13 05:49] VITALS: BP 137/83
[2019-02-13] MEDS: LINAGLIPTIN 5 MG TABLET PO SCH (07:39)
[2019-02-13] MEDS: LISINOPRIL 10 MG TABLET PO SCH (07:39)
[2019-02-13] MEDS: CHOLECALCIFEROL (VITAMIN D3) 1,000 UNIT TABLET PO SCH (07:39)
[2019-02-13] MEDS: amLODIPine BESYLATE 10 MG TABLET PO SCH (07:39)
[2019-02-13] MEDS: RIVASTIGMINE 9.5MG PATCH. TD SCH (07:39)
[2019-02-13] MEDS: ATORVASTATIN CALCIUM 10 MG TABLET. PO SCH (07:40)
[2019-02-13] MEDS: INSULIN LISPRO 300 UNITS/3 ML INSULN.PEN. SQ SCH ×3 (07:44→17:00)
[2019-02-13] MEDS: INSULIN GLARGINE 300 UNITS/3 ML INSULN.PEN. SQ SCH ×2 (09:00→19:33)
[2019-02-13 16:19] VITALS: BP 158/80
--- NOTE | 2019-02-13 18:29 | NUR ---
pt has been up to meals with walker. has been compliant with meds and cares. has been incontinent of bowel x2 today requiring showers. pt states he knows when he has to urinate but does not feel the urge to defecate.
[2019-02-13] MEDS: MIRTAZAPINE 7.5 MG TABLET. PO SCH (19:22)
[2019-02-13] MEDS: risperiDONE 0.25 MG TABLET. PO SCH (19:22)
--- NOTE | 2019-02-13 22:17 | NUR ---
Nursing note: Assumed care of pt in the day room where he was sitting quietly watching tv. He was compliant and cooperative. No c/o pain.
--- NOTE | 2019-02-13 22:29 | PDOC ---
Exam Note: Marlo Note: Please also refer to the separate dictated note~for this date of service dictated separately.~Patient seen individually. Discussed the patient with Nursing staff reviewed the chart.~Reviewed interim history and current functioning. Reviewed vital signs,~Labs/ Radiology~and current medications noted below. Continue current treatment with the changes noted in the dictated addendum note Assessment: Vital Signs: Vital Signs Date Time Temp Pulse Resp B/P (MAP) Pulse Ox O2 Delivery O2 Flow Rate FiO2 02/13/19 16:19 98.8 86 18 158/80 (106) 95 Room Air I&O Intake and Output 02/13/19 06:59 Intake Total 1260 ml Balance 1260 ml Intake Oral 1260 ml # Bowel Movements 1 Labs: Laboratory Tests Test 02/13/19 07:09 02/13/19 11:13 02/13/19 17:04 02/13/19 19:13 Glucose (Fingerstick) 99 mg/dL (70-99) 162 mg/dL (70-99) H 176 mg/dL (70-99) H 277 mg/dL (70-99) H Current Medications: Meds: Current Medications Acetaminophen (Tylenol) 650 mg PRN Q6HRS PRN PO PAIN / TEMP Last administered on 01/31/19at 18:47; Start 01/30/19 at 16:15 Multi-Ingredient Ointment (Analgesic [place]) 1 kimberley PRN QID PRN TP MUSCLE PAIN; Start 01/30/19 at 16:15 Al Hydroxide/Mg Hydroxide (Mylanta Plus Xs) 15 ml PRN AFTMEALHC PRN PO DYSPEPSIA; Start 01/30/19 at 16:15 Magnesium Hydroxide (Milk Of Magnesia) 2,400 mg PRN QHS PRN PO CONSTIPATION; Start 01/30/19 at 16:15 Citalopram Hydrobromide (CeleXA) 10 mg DAILY PO Last administered on 02/04/19at 08:08; Start 01/31/19 at 09:00; Stop 02/04/19 at 17:01; Status DC Acetaminophen/ Hydrocodone Bitart (Lortab 5/325) 1 tab PRN Q4HRS PRN PO PAIN; Start 01/30/19 at 18:45 Ibuprofen (Motrin) 400 mg PRN Q6HRS PRN PO PAIN / TEMP; Start 01/30/19 at 18:45 Lisinopril (Prinivil) 10 mg DAILY PO Last administered on 02/13/19 07:39; Start 01/31/19 at 09:00 Amlodipine Besylate (Norvasc) 10 mg DAILY PO Last administered on 02/13/19 07:39; Start 01/31/19 at 09:00 Atorvastatin Calcium (Lipitor) 10 mg QHS PO ; Start 01/30/19 at 21:00; Stop 01/30/19 at 21:00; Status DC Vitamin D (Vitamin D3) 5,000 unit DAILY PO Last administered on 02/13/19 07:39; Start 01/31/19 at 09:00 Glipizide (Glucotrol) 10 mg DAILYAC PO Last administered on 02/01/19 08:52; Start 01/31/19 at 07:30; Stop 02/02/19 at 08:42; Status DC Insulin Glargine (Lantus) 30 units DAILY SQ Last administered on 02/07/19 08:13; Start 01/31/19 at 09:00; Stop 02/07/19 at 14:42; Status DC Linagliptin (Tradjenta) 5 mg DAILY PO Last administered on 02/13/19 07:39; Start 01/31/19 at 09:00 Atorvastatin Calcium (Lipitor) 10 mg DAILY PO Last administered on 02/13/19 07:40; Start 01/31/19 at 09:00 Insulin Human Lispro (HumaLOG) 0-7 UNITS TIDWMEALS SQ Last administered on 02/13/19at 17:00; Start 01/31/19 at 17:00 Dextrose (Dextrose 50%-Water Syringe) 12.5 gm PRN Q15MIN PRN IV SEE COMMENTS; Start 01/31/19 at 15:15 Glipizide (Glucotrol) 10 mg 1X ONCE PO Last administered on 02/02/19at 08:44; Start 02/02/19 at 08:45; Stop 02/02/19 at 08:46; Status DC Glipizide (Glucotrol) 10 mg DAILYAC PO ; Start 02/03/19 at 07:30; Stop 02/03/19 at 07:30; Status DC Mirtazapine (Remeron) 7.5 mg QHS PO Last administered on 02/13/19 19:22; Start 02/02/19 at 21:00 Rivastigmine (Exelon) 1 patch DAILY TD Last administered on 02/07/19 08:10; Start 02/03/19 at 09:00; Stop 02/07/19 at 19:32; Status DC Insulin Glargine (Lantus) 8 units QHS SQ Last administered on 02/06/19 19:50; Start 02/02/19 at 21:00; Stop 02/07/19 at 14:42; Status DC Citalopram Hydrobromide (CeleXA) 20 mg DAILY PO Last administered on 02/12/19 09:32; Start 02/05/19 at 09:00; Stop 02/12/19 at 11:05; Status DC Risperidone (RisperDAL) 0.25 mg HS PO Last administered on 02/13/19 19:22; Start 02/05/19 at 21:00 Insulin Glargine (Lantus) 35 units DAILY SQ Last administered on 02/13/19 09:00; Start 02/08/19 at 09:00 Insulin Glargine (Lantus) 12 units QHS SQ Last administered on 02/13/19 19:33; Start 02/07/19 at 21:00 Rivastigmine (Exelon) 1 patch DAILY TD Last administered on 02/13/19 07:39; Start 02/08/19 at 09:00 Selenium Sulfide (Selsun) 1 kimberley 3X/WEEK PRN TP DANDRUFF; Start 02/09/19 at 15:00 Fluvoxamine Maleate (Luvox) 25 mg DAILY PO Last administered on 02/13/19 07:42; Start 02/13/19 at 09:00; Stop 02/17/19 at 12:00 Fluvoxamine Maleate (Luvox) 50 mg DAILY PO ; Start 02/15/19 at 09:00; Stop 02/15/19 at 09:00; Status DC Fluvoxamine Maleate (Luvox) 50 mg DAILY PO ; Start 02/18/19 at 09:00 Olanzapine (ZyPREXA ZYDIS) 2.5 mg PRN Q2HR PRN PO PSYCHOSIS; Start 02/12/19 at 12:00 Active Scripts Active Reported Ibuprofen 400 Mg Tablet 400 Mg PO PRN Q6HRS PRN Hydrocodone-Apap 5-325 (Hydrocodone Bit/Acetaminophen) 1 Each Tablet 1 Tab PO PRN Q4HRS PRN Lisinopril 10 Mg Tablet 10 Mg PO DAILY Tradjenta (Linagliptin) 5 Mg Tablet 5 Mg PO DAILY Levemir (Insulin Detemir) 100 Unit/1 Ml Vial 30 Unit SQ DAILY Glipizide 10 Mg Tablet 10 Mg PO DAILY Citalopram Hbr (Citalopram Hydrobromide) 10 Mg Tablet 10 Mg PO DAILY Vitamin D (Cholecalciferol (Vitamin D3)) 1,000 Unit Capsule 5,000 Unit PO DAILY Atorvastatin Calcium 10 Mg Tablet 10 Mg PO QHS Amlodipine Besylate 10 Mg Tablet 10 Mg PO DAILY I have reviewed the current psychotropics carefully including drug interactions. Risk benefit ratio favors no change other than as noted in my dictated progress note. Diagnosis: Problems: (1) Dementia, vascular (2) Dementia of the Alzheimer's type (3) Dementia, Alzheimer's, with behavior disturbance (4) Dementia in Alzheimer's disease with depression (5) Major neurocognitive disorder due to Alzheimer's disease, with behavioral disturbance RADHA OLGUIN MD February 13, 2019 22:28
--- NOTE | 2019-02-13 23:37 | PN ---
DATE: 02/11/2019 PSYCHIATRIC PROGRESS NOTE This is a late entry 02/11/2019 covers elements not covered in my initial note. SUBJECTIVE: I met with the patient in the evening of 02/11/2019. The patient slept 6-3/4 hours previous night. He remains confused, compliant with medications, somewhat withdrawn. REVIEW OF SYSTEMS: No CV, , pulmonary, eye, ENT system symptoms on review. Reliability poor. MENTAL STATUS EXAM: Oriented to himself. Insight, judgment, recent and remote memory, attention, concentration, fund of knowledge poor, consistent with his diagnosis mentioned in my initial note. PLAN: No change from initial note. Continue Celexa, Remeron, Exelon patch, and Risperdal 0.25 mg at bedtime. MAN Vandana OLGUIN MD DR: ALAN/elina JOB#: [id number] / [id number]
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
[2019-02-14 05:51] VITALS: BP 115/76
[2019-02-14] MEDS: LISINOPRIL 10 MG TABLET PO SCH (07:32)
[2019-02-14] MEDS: CHOLECALCIFEROL (VITAMIN D3) 1,000 UNIT TABLET PO SCH (07:32)
[2019-02-14] MEDS: LINAGLIPTIN 5 MG TABLET PO SCH (07:33)
[2019-02-14] MEDS: ATORVASTATIN CALCIUM 10 MG TABLET. PO SCH (07:33)
[2019-02-14] MEDS: RIVASTIGMINE 9.5MG PATCH. TD SCH (07:33)
[2019-02-14] MEDS: amLODIPine BESYLATE 10 MG TABLET PO SCH (07:33)
[2019-02-14] MEDS: INSULIN LISPRO 300 UNITS/3 ML INSULN.PEN. SQ SCH ×3 (07:34→17:00)
[2019-02-14] MEDS: INSULIN GLARGINE 300 UNITS/3 ML INSULN.PEN. SQ SCH ×2 (07:42→19:44)
[2019-02-14 16:42] VITALS: BP 117/79
--- NOTE | 2019-02-14 17:38 | NUR ---
pt out to meals and groups. has been in pleasant spirits. compliant with meds and cares. staff have attempted to bowel and bladder training q 2 hrs.
[2019-02-14] MEDS: risperiDONE 0.25 MG TABLET. PO SCH ×3 (19:18→21:00)
[2019-02-14] MEDS: MIRTAZAPINE 7.5 MG TABLET. PO SCH ×3 (19:18→21:00)
--- NOTE | 2019-02-14 20:42 | NUR ---
Nursing note: Assumed care of pt in the day room. He was calm and pleasant but he refused to take his HS meds. He stated "I think they are making me sleep through defecation." I looked up the side effects and explained that one side affect was constipation but he still refused the meds.
--- NOTE | 2019-02-14 22:31 | PDOC ---
Exam Note: Marlo Note: Please also refer to the separate dictated note~for this date of service dictated separately.~Patient seen individually. Discussed the patient with Nursing staff reviewed the chart.~Reviewed interim history and current functioning. Reviewed vital signs,~Labs/ Radiology~and current medications noted below. Continue current treatment with the changes noted in the dictated addendum note Assessment: Vital Signs: Vital Signs Date Time Temp Pulse Resp B/P (MAP) Pulse Ox O2 Delivery O2 Flow Rate FiO2 02/14/19 16:42 97.9 104 18 117/79 (92) 96 02/13/19 16:19 Room Air I&O Intake and Output 02/14/19 06:59 Intake Total 960 ml Balance 960 ml Intake Oral 960 ml # Bowel Movements 2 Labs: Laboratory Tests Test 02/14/19 07:12 02/14/19 11:56 02/14/19 16:55 02/14/19 19:33 Glucose (Fingerstick) 97 mg/dL (70-99) 204 mg/dL (70-99) H 154 mg/dL (70-99) H 169 mg/dL (70-99) H Current Medications: Meds: Current Medications Acetaminophen (Tylenol) 650 mg PRN Q6HRS PRN PO PAIN / TEMP Last administered on 01/31/19at 18:47; Start 01/30/19 at 16:15 Multi-Ingredient Ointment (Analgesic [place]) 1 kimberley PRN QID PRN TP MUSCLE PAIN; Start 01/30/19 at 16:15 Al Hydroxide/Mg Hydroxide (Mylanta Plus Xs) 15 ml PRN AFTMEALHC PRN PO DYSPEPSIA; Start 01/30/19 at 16:15 Magnesium Hydroxide (Milk Of Magnesia) 2,400 mg PRN QHS PRN PO CONSTIPATION; Start 01/30/19 at 16:15 Citalopram Hydrobromide (CeleXA) 10 mg DAILY PO Last administered on 02/04/19at 08:08; Start 01/31/19 at 09:00; Stop 02/04/19 at 17:01; Status DC Acetaminophen/ Hydrocodone Bitart (Lortab 5/325) 1 tab PRN Q4HRS PRN PO PAIN; Start 01/30/19 at 18:45 Ibuprofen (Motrin) 400 mg PRN Q6HRS PRN PO PAIN / TEMP; Start 01/30/19 at 18:45 Lisinopril (Prinivil) 10 mg DAILY PO Last administered on 02/14/19 07:32; Start 01/31/19 at 09:00 Amlodipine Besylate (Norvasc) 10 mg DAILY PO Last administered on 02/14/19 07:33; Start 01/31/19 at 09:00 Atorvastatin Calcium (Lipitor) 10 mg QHS PO ; Start 01/30/19 at 21:00; Stop 01/30/19 at 21:00; Status DC Vitamin D (Vitamin D3) 5,000 unit DAILY PO Last administered on 02/14/19 07:32; Start 01/31/19 at 09:00 Glipizide (Glucotrol) 10 mg DAILYAC PO Last administered on 02/01/19 08:52; Start 01/31/19 at 07:30; Stop 02/02/19 at 08:42; Status DC Insulin Glargine (Lantus) 30 units DAILY SQ Last administered on 02/07/19 08:13; Start 01/31/19 at 09:00; Stop 02/07/19 at 14:42; Status DC Linagliptin (Tradjenta) 5 mg DAILY PO Last administered on 02/14/19 07:33; Start 01/31/19 at 09:00 Atorvastatin Calcium (Lipitor) 10 mg DAILY PO Last administered on 02/14/19 07:33; Start 01/31/19 at 09:00 Insulin Human Lispro (HumaLOG) 0-7 UNITS TIDWMEALS SQ Last administered on 02/14/19 17:00; Start 01/31/19 at 17:00 Dextrose (Dextrose 50%-Water Syringe) 12.5 gm PRN Q15MIN PRN IV SEE COMMENTS; Start 01/31/19 at 15:15 Glipizide (Glucotrol) 10 mg 1X ONCE PO Last administered on 02/02/19at 08:44; Start 02/02/19 at 08:45; Stop 02/02/19 at 08:46; Status DC Glipizide (Glucotrol) 10 mg DAILYAC PO ; Start 02/03/19 at 07:30; Stop 02/03/19 at 07:30; Status DC Mirtazapine (Remeron) 7.5 mg QHS PO Last administered on 02/13/19 19:22; Start 02/02/19 at 21:00 Rivastigmine (Exelon) 1 patch DAILY TD Last administered on 02/07/19 08:10; Start 02/03/19 at 09:00; Stop 02/07/19 at 19:32; Status DC Insulin Glargine (Lantus) 8 units QHS SQ Last administered on 02/06/19at 19:50; Start 02/02/19 at 21:00; Stop 02/07/19 at 14:42; Status DC Citalopram Hydrobromide (CeleXA) 20 mg DAILY PO Last administered on 02/12/19 09:32; Start 02/05/19 at 09:00; Stop 02/12/19 at 11:05; Status DC Risperidone (RisperDAL) 0.25 mg HS PO Last administered on 02/13/19 19:22; Start 02/05/19 at 21:00 Insulin Glargine (Lantus) 35 units DAILY SQ Last administered on 02/14/19at 07:42; Start 02/08/19 at 09:00 Insulin Glargine (Lantus) 12 units QHS SQ Last administered on 02/14/19 19:44; Start 02/07/19 at 21:00 Rivastigmine (Exelon) 1 patch DAILY TD Last administered on 02/14/19 07:33; Start 02/08/19 at 09:00 Selenium Sulfide (Selsun) 1 kimberley 3X/WEEK PRN TP DANDRUFF; Start 02/09/19 at 15:00 Fluvoxamine Maleate (Luvox) 25 mg DAILY PO Last administered on 02/14/19 07:32; Start 02/13/19 at 09:00; Stop 02/17/19 at 12:00 Fluvoxamine Maleate (Luvox) 50 mg DAILY PO ; Start 02/15/19 at 09:00; Stop 02/15/19 at 09:00; Status DC Fluvoxamine Maleate (Luvox) 50 mg DAILY PO ; Start 02/18/19 at 09:00 Olanzapine (ZyPREXA ZYDIS) 2.5 mg PRN Q2HR PRN PO PSYCHOSIS; Start 02/12/19 at 12:00 Active Scripts Active Reported Ibuprofen 400 Mg Tablet 400 Mg PO PRN Q6HRS PRN Hydrocodone-Apap 5-325 (Hydrocodone Bit/Acetaminophen) 1 Each Tablet 1 Tab PO PRN Q4HRS PRN Lisinopril 10 Mg Tablet 10 Mg PO DAILY Tradjenta (Linagliptin) 5 Mg Tablet 5 Mg PO DAILY Levemir (Insulin Detemir) 100 Unit/1 Ml Vial 30 Unit SQ DAILY Glipizide 10 Mg Tablet 10 Mg PO DAILY Citalopram Hbr (Citalopram Hydrobromide) 10 Mg Tablet 10 Mg PO DAILY Vitamin D (Cholecalciferol (Vitamin D3)) 1,000 Unit Capsule 5,000 Unit PO DAILY Atorvastatin Calcium 10 Mg Tablet 10 Mg PO QHS Amlodipine Besylate 10 Mg Tablet 10 Mg PO DAILY I have reviewed the current psychotropics carefully including drug interactions. Risk benefit ratio favors no change other than as noted in my dictated progress note. Diagnosis: Problems: (1) Dementia, vascular (2) Dementia of the Alzheimer's type (3) Dementia, Alzheimer's, with behavior disturbance (4) Dementia in Alzheimer's disease with depression (5) Major neurocognitive disorder due to Alzheimer's disease, with behavioral disturbance RADHA OLGUIN MD Feb 14, 2019 22:31
[2019-02-15 06:05] VITALS: BP 120/63
[2019-02-15] MEDS: CHOLECALCIFEROL (VITAMIN D3) 1,000 UNIT TABLET PO SCH (07:49)
[2019-02-15] MEDS: LINAGLIPTIN 5 MG TABLET PO SCH (07:50)
[2019-02-15] MEDS: ATORVASTATIN CALCIUM 10 MG TABLET. PO SCH (07:50)
[2019-02-15] MEDS: amLODIPine BESYLATE 10 MG TABLET PO SCH (07:50)
[2019-02-15] MEDS: LISINOPRIL 10 MG TABLET PO SCH (07:50)
[2019-02-15] MEDS: RIVASTIGMINE 9.5MG PATCH. TD SCH (07:51)
[2019-02-15] MEDS: INSULIN GLARGINE 300 UNITS/3 ML INSULN.PEN. SQ SCH ×2 (07:55→20:26)
[2019-02-15] MEDS: INSULIN LISPRO 300 UNITS/3 ML INSULN.PEN. SQ SCH ×3 (07:57→16:58)
[2019-02-15 16:12] VITALS: BP 162/90
--- NOTE | 2019-02-15 17:52 | NUR ---
pt up to meals and out to groups. has been compliant with meds and cares. toileted before and after meals and has thus far been continent.
[2019-02-15] MEDS: MIRTAZAPINE 7.5 MG TABLET. PO SCH (20:05)
[2019-02-15] MEDS: risperiDONE 0.25 MG TABLET. PO SCH (20:05)
--- NOTE | 2019-02-15 22:34 | PDOC ---
Exam Note: Marlo Note: Please also refer to the separate dictated note~for this date of service dictated separately.~Patient seen individually. Discussed the patient with Nursing staff reviewed the chart.~Reviewed interim history and current functioning. Reviewed vital signs,~Labs/ Radiology~and current medications noted below. Continue current treatment with the changes noted in the dictated addendum note Assessment: Vital Signs: Vital Signs Date Time Temp Pulse Resp B/P (MAP) Pulse Ox O2 Delivery O2 Flow Rate FiO2 02/15/19 16:12 98.6 103 19 162/90 (114) 93 02/13/19 16:19 Room Air I&O Intake and Output 02/15/19 06:59 Intake Total 1560 ml Balance 1560 ml Intake Oral 1560 ml Labs: Laboratory Tests Test 02/15/19 07:20 02/15/19 11:53 02/15/19 16:47 02/15/19 19:52 Glucose (Fingerstick) 198 mg/dL (70-99) H 192 mg/dL (70-99) H 173 mg/dL (70-99) H 311 mg/dL (70-99) H Current Medications: Meds: Current Medications Acetaminophen (Tylenol) 650 mg PRN Q6HRS PRN PO PAIN / TEMP Last administered on 01/31/19at 18:47; Start 01/30/19 at 16:15 Multi-Ingredient Ointment (Analgesic [place]) 1 kimberley PRN QID PRN TP MUSCLE PAIN; Start 01/30/19 at 16:15 Al Hydroxide/Mg Hydroxide (Mylanta Plus Xs) 15 ml PRN AFTMEALHC PRN PO DYSPEPSIA; Start 01/30/19 at 16:15 Magnesium Hydroxide (Milk Of Magnesia) 2,400 mg PRN QHS PRN PO CONSTIPATION; Start 01/30/19 at 16:15 Citalopram Hydrobromide (CeleXA) 10 mg DAILY PO Last administered on 02/04/19at 08:08; Start 01/31/19 at 09:00; Stop 02/04/19 at 17:01; Status DC Acetaminophen/ Hydrocodone Bitart (Lortab 5/325) 1 tab PRN Q4HRS PRN PO PAIN; Start 01/30/19 at 18:45 Ibuprofen (Motrin) 400 mg PRN Q6HRS PRN PO PAIN / TEMP; Start 01/30/19 at 18:45 Lisinopril (Prinivil) 10 mg DAILY PO Last administered on 02/15/19 07:50; Start 01/31/19 at 09:00 Amlodipine Besylate (Norvasc) 10 mg DAILY PO Last administered on 02/15/19 07:50; Start 01/31/19 at 09:00 Atorvastatin Calcium (Lipitor) 10 mg QHS PO ; Start 01/30/19 at 21:00; Stop 01/30/19 at 21:00; Status DC Vitamin D (Vitamin D3) 5,000 unit DAILY PO Last administered on 02/15/19 07:49; Start 01/31/19 at 09:00 Glipizide (Glucotrol) 10 mg DAILYAC PO Last administered on 02/01/19 08:52; Start 01/31/19 at 07:30; Stop 02/02/19 at 08:42; Status DC Insulin Glargine (Lantus) 30 units DAILY SQ Last administered on 02/07/19 08:13; Start 01/31/19 at 09:00; Stop 02/07/19 at 14:42; Status DC Linagliptin (Tradjenta) 5 mg DAILY PO Last administered on 02/15/19 07:50; Start 01/31/19 at 09:00 Atorvastatin Calcium (Lipitor) 10 mg DAILY PO Last administered on 02/15/19 07:50; Start 01/31/19 at 09:00 Insulin Human Lispro (HumaLOG) 0-7 UNITS TIDWMEALS SQ Last administered on 02/15/19at 16:58; Start 01/31/19 at 17:00 Dextrose (Dextrose 50%-Water Syringe) 12.5 gm PRN Q15MIN PRN IV SEE COMMENTS; Start 01/31/19 at 15:15 Glipizide (Glucotrol) 10 mg 1X ONCE PO Last administered on 02/02/19at 08:44; Start 02/02/19 at 08:45; Stop 02/02/19 at 08:46; Status DC Glipizide (Glucotrol) 10 mg DAILYAC PO ; Start 02/03/19 at 07:30; Stop 02/03/19 at 07:30; Status DC Mirtazapine (Remeron) 7.5 mg QHS PO Last administered on 02/15/19 20:05; Start 02/02/19 at 21:00 Rivastigmine (Exelon) 1 patch DAILY TD Last administered on 02/07/19 08:10; Start 02/03/19 at 09:00; Stop 02/07/19 at 19:32; Status DC Insulin Glargine (Lantus) 8 units QHS SQ Last administered on 02/06/19at 19:50; Start 02/02/19 at 21:00; Stop 02/07/19 at 14:42; Status DC Citalopram Hydrobromide (CeleXA) 20 mg DAILY PO Last administered on 02/12/19 09:32; Start 02/05/19 at 09:00; Stop 02/12/19 at 11:05; Status DC Risperidone (RisperDAL) 0.25 mg HS PO Last administered on 02/15/19 20:05; Start 02/05/19 at 21:00 Insulin Glargine (Lantus) 35 units DAILY SQ Last administered on 02/15/19 07:55; Start 02/08/19 at 09:00 Insulin Glargine (Lantus) 12 units QHS SQ Last administered on 02/15/19 20:26; Start 02/07/19 at 21:00 Rivastigmine (Exelon) 1 patch DAILY TD Last administered on 02/15/19 07:51; Start 02/08/19 at 09:00 Selenium Sulfide (Selsun) 1 kimberley 3X/WEEK PRN TP DANDRUFF; Start 02/09/19 at 15:00 Fluvoxamine Maleate (Luvox) 25 mg DAILY PO Last administered on 02/15/19 07:50; Start 02/13/19 at 09:00; Stop 02/17/19 at 12:00 Fluvoxamine Maleate (Luvox) 50 mg DAILY PO ; Start 02/15/19 at 09:00; Stop 02/15/19 at 09:00; Status DC Fluvoxamine Maleate (Luvox) 50 mg DAILY PO ; Start 02/18/19 at 09:00 Olanzapine (ZyPREXA ZYDIS) 2.5 mg PRN Q2HR PRN PO PSYCHOSIS; Start 02/12/19 at 12:00 Active Scripts Active Reported Ibuprofen 400 Mg Tablet 400 Mg PO PRN Q6HRS PRN Hydrocodone-Apap 5-325 (Hydrocodone Bit/Acetaminophen) 1 Each Tablet 1 Tab PO PRN Q4HRS PRN Lisinopril 10 Mg Tablet 10 Mg PO DAILY Tradjenta (Linagliptin) 5 Mg Tablet 5 Mg PO DAILY Levemir (Insulin Detemir) 100 Unit/1 Ml Vial 30 Unit SQ DAILY Glipizide 10 Mg Tablet 10 Mg PO DAILY Citalopram Hbr (Citalopram Hydrobromide) 10 Mg Tablet 10 Mg PO DAILY Vitamin D (Cholecalciferol (Vitamin D3)) 1,000 Unit Capsule 5,000 Unit PO DAILY Atorvastatin Calcium 10 Mg Tablet 10 Mg PO QHS Amlodipine Besylate 10 Mg Tablet 10 Mg PO DAILY I have reviewed the current psychotropics carefully including drug interactions. Risk benefit ratio favors no change other than as noted in my dictated progress note. Diagnosis: Problems: (1) Dementia, vascular (2) Dementia of the Alzheimer's type (3) Dementia, Alzheimer's, with behavior disturbance (4) Dementia in Alzheimer's disease with depression (5) Major neurocognitive disorder due to Alzheimer's disease, with behavioral disturbance RADHA OLGUIN MD Feb 15, 2019 22:34
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
--- NOTE | 2019-02-16 05:51 | NUR ---
It was reported to this nurse that patient has been having loose/unformed stools. He has had at least 3 recorded. Obtained stool sample and submitted with form to Lab.
--- NOTE | 2019-02-16 06:08 | PN ---
DATE: 02/13/2019 PSYCHIATRIC PROGRESS NOTE This late entry 02/13/2019 covers elements not covered in my initial note. SUBJECTIVE: I met with the patient in the evening. The patient slept 6-3/4 hours previous night. He remains confused, not aggressive. REVIEW OF SYSTEMS: No CV, , pulmonary, eye, ENT system symptoms on review. Reliability poor. MENTAL STATUS EXAM: Oriented to himself. Insight, judgment, recent and remote memory, attention, concentration, fund of knowledge poor, consistent with his diagnosis mentioned in my initial note. PLAN: No change from initial note. MAN Vandana OLGUIN MD DR: ALAN/elina JOB#: [id number] / [id number]
[2019-02-16 06:17] VITALS: BP 115/74
--- NOTE | 2019-02-16 06:59 | PN ---
DATE: 02/14/2019 PSYCHIATRIC PROGRESS NOTE This late entry 02/14/2019 covers elements not covered in my initial note. SUBJECTIVE: I met with the patient in the evening. The patient slept 4-3/4 hours previous night. He remains confused, but cooperative with meds and cares, still having fecal incontinence, staff attempting bowel and bladder training. REVIEW OF SYSTEMS: No CV, , pulmonary, eye, ENT system symptoms on review. Reliability poor. MENTAL STATUS EXAM: Oriented to himself. Insight, judgment, recent and remote memory, attention, concentration, fund of knowledge poor, consistent with his diagnosis mentioned in my initial note. IMPRESSION: Major neurocognitive disorder, Alzheimer, vascular with delusion, depression, behavioral disturbance; anxiety disorder, unspecified; impulse control disorder, unspecified. Rest unchanged. PLAN: No change from initial note. MAN Vandana OLGUIN MD DR: ALAN/elina JOB#: [id number] / [id number]
[2019-02-16 07:25] LABS: BASO % 1 % (0-3); EOS # 0.3 x10^3/uL (0.0-0.7); EOS % 4 % (0-3); HEMATOCRIT 43.6 % (39.0-53.0); HEMOGLOBIN 14.4 g/dL (13.0-17.5); LYMPH # 3.4 x10^3/uL (1.0-4.8); LYMPH % 41 % (24-48); MEAN CORPUSCULAR HEMOGLOBIN 26 pg (25-35); MEAN CORPUSCULAR HGB CONC 33 g/dL (31-37); MEAN CORPUSCULAR VOLUME 79 fL (79-100); MONO # 0.6 x10^3/uL (0.0-1.1); MONO % 8 % (0-9); NEUT % 47 % (31-73); PLATELET COUNT 131 x10^3/uL (140-400); RED BLOOD COUNT 5.51 x10^6/uL (4.30-5.70); RED CELL DISTRIBUTION WIDTH 14.6 % (11.5-14.5); WHITE BLOOD COUNT 8.4 x10^3/uL (4.0-11.0)
[2019-02-16 07:41] LABS: ALBUMIN 3.2 g/dL (3.4-5.0); ALBUMIN/GLOBULIN RATIO 0.9 (1.0-1.7); GFR 72.6; POTASSIUM 3.6 mmol/L (3.5-5.1); TOTAL BILIRUBIN 0.4 mg/dL (0.2-1.0); TOTAL PROTEIN 6.9 g/dL (6.4-8.2)
--- NOTE | 2019-02-16 07:42 | PN ---
DATE: 02/15/2019 PSYCHIATRIC PROGRESS NOTE This note covers elements not covered in my initial note 02/15/2019. SUBJECTIVE: I met with the patient in the evening. The patient slept 3-1/2 hours previous night. He remains confused, anxious at times, but did better after a bowel movement. Refused bedtime medications. REVIEW OF SYSTEMS: No CV, , pulmonary, eye, ENT system symptoms on review. Reliability poor. MENTAL STATUS EXAM: Oriented to himself. Insight, judgment, recent and remote memory, attention, concentration, fund of knowledge poor, consistent with his diagnosis mentioned in my initial note. PLAN: Increase Exelon patch from 9.5 mg a day to 13.3 mg a day. Continue Risperdal, Remeron, Celexa for now. MAN Vandana OLGUIN MD DR: ALAN/elina JOB#: [id number] / [id number]
[2019-02-16] MEDS: INSULIN LISPRO 300 UNITS/3 ML INSULN.PEN. SQ SCH ×2 (08:27→12:21)
[2019-02-16] MEDS: ATORVASTATIN CALCIUM 10 MG TABLET. PO SCH (08:27)
[2019-02-16 08:28] VITALS: BP 115/74
[2019-02-16] MEDS: LINAGLIPTIN 5 MG TABLET PO SCH (08:28)
[2019-02-16] MEDS: amLODIPine BESYLATE 10 MG TABLET PO SCH (08:28)
[2019-02-16] MEDS: CHOLECALCIFEROL (VITAMIN D3) 1,000 UNIT TABLET PO SCH (08:28)
[2019-02-16] MEDS: LISINOPRIL 10 MG TABLET PO SCH (08:28)
[2019-02-16] MEDS: INSULIN GLARGINE 300 UNITS/3 ML INSULN.PEN. SQ SCH (08:29)
[2019-02-16] MEDS ORDERED: RIVASTIGMINE 13.3MG PATCH. TD SCH (09:00)
--- NOTE | 2019-02-16 10:37 | NUR ---
Pt is cooperative, calm, and compliant. No agitation or aggression. Pt is social with staff and interacts appropriately. He is compliant with medication and assessment.
[2019-02-16 11:23] LABS: % ATYL 5 % (0-0); % BANDS 1 % (0-9); % BASOS 2 % (0-3); % EOS 2 % (0-5); % LYMPHS 37 % (24-48); % MONOS 5 % (0-10); % SEGS 48 % (35-66); PLT ESTIMATE ADEQUATE (ADEQUATE)
--- NOTE | 2019-02-16 14:53 | NUR ---
BRENNAN contacted pt guardian, Nikole, to inform her that pt was heading down to the medical floor as he has been tested and came up positive for C-diff. Pt can not be isolated on our floor and will have to discharge down there for monitoring. Nikole reports that she will be coming to see pt along with pt manager cardiac, family court counsellor, step-son. "There will be 5 or 6 of us around the noon hour". SW will make sure to pass this on to staff downstairs to give them a heads up.
[2019-02-16] MEDS ORDERED: ACET325T9 PO (15:09)
[2019-02-16] MEDS ORDERED: MAG30ORA2 PO (15:10)
[2019-02-16] MEDS ORDERED: MAGN2400 PO (15:10)
[2019-02-16] MEDS ORDERED: METH29OI TP (15:11)
[2019-02-16] MEDS ORDERED: AMLO10TA4 PO (15:12)
[2019-02-16] MEDS ORDERED: SELE180S3 TP (15:12)
[2019-02-16] MEDS ORDERED: INSU100I13 SQ ×2 (15:15)
[2019-02-16] MEDS ORDERED: INSU100I11 SQ (15:16)
[2019-02-16] MEDS ORDERED: MIRT15TA PO (15:20)
[2019-02-16] MEDS ORDERED: OLAN5TAB5 PO (15:21)
[2019-02-16] MEDS ORDERED: RIVA1PAT5 TD (15:22)
[2019-02-16] MEDS ORDERED: FLUV25TA PO (15:23)
[2019-02-16] MEDS ORDERED: FLUV50TA2 PO (15:25)
[2019-02-16] MEDS ORDERED: RISP0.2519 PO (15:27)
--- NOTE | 2019-02-16 16:15 | NUR ---
Transition Record was faxed to follow-up provider with the following elements: Reason for admission, procedures, tests, principal diagnosis, pending studies, patient instructions, 08/04 contact information for unit, phone number to obtain pending test results, plan for follow-up care, physician follow-up, advanced directive information, and medication list with dose, duration and instructions. This information was included in the following documents: History and physical, lab results, study results, progress notes, social work planning form, DC instruction form, patient visit summary, and medication reconciliation form. Date & time record faxed:02/16/19 2299 Record faxed to: 1 [place] Record discussed with/ report given to: Lulu
--- NOTE | 2019-02-16 22:32 | PDOC ---
Exam Note: Marlo Note: Please also refer to the separate dictated note~for this date of service dictated separately.~Patient seen individually. Discussed the patient with Nursing staff reviewed the chart.~Reviewed interim history and current functioning. Reviewed vital signs,~Labs/ Radiology~and current medications noted below. Continue current treatment with the changes noted in the dictated addendum note Assessment: Vital Signs: Vital Signs Date Time Temp Pulse Resp B/P (MAP) Pulse Ox O2 Delivery O2 Flow Rate FiO2 02/16/19 08:28 77 115/74 02/16/19 06:17 97.5 20 94 02/13/19 16:19 Room Air I&O Intake and Output 02/16/19 07:00 Intake Total 1200 ml Balance 1200 ml Intake Oral 1200 ml # Bowel Movements 2 Labs: Laboratory Tests Test 02/16/19 05:45 02/16/19 06:37 02/16/19 07:13 02/16/19 11:58 Clostridium difficile Toxin B Gene Positive (Negative) *A White Blood Count 8.4 x10^3/uL (4.0-11.0) Red Blood Count 5.51 x10^6/uL (4.30-5.70) Hemoglobin 14.4 g/dL (13.0-17.5) Hematocrit 43.6 % (39.0-53.0) Mean Corpuscular Volume 79 fL (79-100) Mean Corpuscular Hemoglobin 26 pg (25-35) Mean Corpuscular Hemoglobin Concent 33 g/dL (31-37) Red Cell Distribution Width 14.6 % (11.5-14.5) H Platelet Count 131 x10^3/uL (140-400) L Neutrophils (%) (Auto) 47 % (31-73) Lymphocytes (%) (Auto) 41 % (24-48) Monocytes (%) (Auto) 8 % (0-9) Eosinophils (%) (Auto) 4 % (0-3) H Basophils (%) (Auto) 1 % (0-3) Neutrophils # (Auto) 4.0 x10^3uL (1.8-7.7) Lymphocytes # (Auto) 3.4 x10^3/uL (1.0-4.8) Monocytes # (Auto) 0.6 x10^3/uL (0.0-1.1) Eosinophils # (Auto) 0.3 x10^3/uL (0.0-0.7) Basophils # (Auto) 0.0 x10^3/uL (0.0-0.2) Segmented Neutrophils % 48 % (35-66) Band Neutrophils % 1 % (0-9) Lymphocytes % 37 % (24-48) Atypical Lymphocytes % (Manual) 5 % (0-0) H Monocytes % 5 % (0-10) Eosinophils % 2 % (0-5) Basophils % 2 % (0-3) Platelet Estimate Adequate (ADEQUATE) Large Platelets Occ Sodium Level 141 mmol/L (136-145) Potassium Level 3.6 mmol/L (3.5-5.1) Chloride Level 102 mmol/L (98-107) Carbon Dioxide Level 29 mmol/L (21-32) Anion Gap 10 (6-14) Blood Urea Nitrogen 13 mg/dL (8-26) Creatinine 1.0 mg/dL (0.7-1.3) Estimated GFR (Cockcroft-Gault) 72.6 BUN/Creatinine Ratio 13 (6-20) Glucose Level 155 mg/dL (70-99) H Calcium Level 9.0 mg/dL (8.5-10.1) Total Bilirubin 0.4 mg/dL (0.2-1.0) Aspartate Amino Transferase (AST) 11 U/L (15-37) L Alanine Aminotransferase (ALT) 18 U/L (16-63) Alkaline Phosphatase 92 U/L (46-116) Total Protein 6.9 g/dL (6.4-8.2) Albumin 3.2 g/dL (3.4-5.0) L Albumin/Globulin Ratio 0.9 (1.0-1.7) L Glucose (Fingerstick) 154 mg/dL (70-99) H 185 mg/dL (70-99) H Test 02/16/19 16:42 Glucose (Fingerstick) 268 mg/dL (70-99) H Current Medications: Meds: Current Medications Acetaminophen (Tylenol) 650 mg PRN Q6HRS PRN PO PAIN / TEMP Last administered on 01/31/19at 18:47; Start 01/30/19 at 16:15; Stop 02/16/19 at 16:27; Status DC Multi-Ingredient Ointment (Analgesic [place]) 1 kimberley PRN QID PRN TP MUSCLE PAIN; Start 01/30/19 at 16:15; Stop 02/16/19 at 16:27; Status DC Al Hydroxide/Mg Hydroxide (Mylanta Plus Xs) 15 ml PRN AFTMEALHC PRN PO DYSPEPSIA; Start 01/30/19 at 16:15; Stop 02/16/19 at 16:27; Status DC Magnesium Hydroxide (Milk Of Magnesia) 2,400 mg PRN QHS PRN PO CONSTIPATION; Start 01/30/19 at 16:15; Stop 02/16/19 at 16:27; Status DC Citalopram Hydrobromide (CeleXA) 10 mg DAILY PO Last administered on 02/04/19at 08:08; Start 01/31/19 at 09:00; Stop 02/04/19 at 17:01; Status DC Acetaminophen/ Hydrocodone Bitart (Lortab 5/325) 1 tab PRN Q4HRS PRN PO PAIN; Start 01/30/19 at 18:45; Stop 02/16/19 at 16:27; Status DC Ibuprofen (Motrin) 400 mg PRN Q6HRS PRN PO PAIN / TEMP; Start 01/30/19 at 18:45; Stop 02/16/19 at 16:27; Status DC Lisinopril (Prinivil) 10 mg DAILY PO Last administered on 02/16/19at 08:28; Start 01/31/19 at 09:00; Stop 02/16/19 at 16:27; Status DC Amlodipine Besylate (Norvasc) 10 mg DAILY PO Last administered on 02/16/19at 08:28; Start 01/31/19 at 09:00; Stop 02/16/19 at 16:27; Status DC Atorvastatin Calcium (Lipitor) 10 mg QHS PO ; Start 01/30/19 at 21:00; Stop 01/30/19 at 21:00; Status DC Vitamin D (Vitamin D3) 5,000 unit DAILY PO Last administered on 02/16/19at 08:28; Start 01/31/19 at 09:00; Stop 02/16/19 at 16:27; Status DC Glipizide (Glucotrol) 10 mg DAILYAC PO Last administered on 02/01/19at 08:52; Start 01/31/19 at 07:30; Stop 02/02/19 at 08:42; Status DC Insulin Glargine (Lantus) 30 units DAILY SQ Last administered on 02/07/19 08:13; Start 01/31/19 at 09:00; Stop 02/07/19 at 14:42; Status DC Linagliptin (Tradjenta) 5 mg DAILY PO Last administered on 02/16/19 08:28; Start 01/31/19 at 09:00; Stop 02/16/19 at 16:27; Status DC Atorvastatin Calcium (Lipitor) 10 mg DAILY PO Last administered on 02/16/19 08:27; Start 01/31/19 at 09:00; Stop 02/16/19 at 16:27; Status DC Insulin Human Lispro (HumaLOG) 0-7 UNITS TIDWMEALS SQ Last administered on 02/16/19 12:21; Start 01/31/19 at 17:00; Stop 02/16/19 at 16:27; Status DC Dextrose (Dextrose 50%-Water Syringe) 12.5 gm PRN Q15MIN PRN IV SEE COMMENTS; Start 01/31/19 at 15:15; Stop 02/16/19 at 16:27; Status DC Glipizide (Glucotrol) 10 mg 1X ONCE PO Last administered on 02/02/19at 08:44; Start 02/02/19 at 08:45; Stop 02/02/19 at 08:46; Status DC Glipizide (Glucotrol) 10 mg DAILYAC PO ; Start 02/03/19 at 07:30; Stop 02/03/19 at 07:30; Status DC Mirtazapine (Remeron) 7.5 mg QHS PO Last administered on 02/15/19 20:05; Start 02/02/19 at 21:00; Stop 02/16/19 at 16:27; Status DC Rivastigmine (Exelon) 1 patch DAILY TD Last administered on 02/07/19 08:10; Start 02/03/19 at 09:00; Stop 02/07/19 at 19:32; Status DC Insulin Glargine (Lantus) 8 units QHS SQ Last administered on 02/06/19at 19:50; Start 02/02/19 at 21:00; Stop 02/07/19 at 14:42; Status DC Citalopram Hydrobromide (CeleXA) 20 mg DAILY PO Last administered on 02/12/19at 09:32; Start 02/05/19 at 09:00; Stop 02/12/19 at 11:05; Status DC Risperidone (RisperDAL) 0.25 mg HS PO Last administered on 02/15/19at 20:05; Start 02/05/19 at 21:00; Stop 02/16/19 at 16:27; Status DC Insulin Glargine (Lantus) 35 units DAILY SQ Last administered on 02/16/19at 08:29; Start 02/08/19 at 09:00; Stop 02/16/19 at 16:27; Status DC Insulin Glargine (Lantus) 12 units QHS SQ Last administered on 02/15/19at 20:26; Start 02/07/19 at 21:00; Stop 02/16/19 at 16:27; Status DC Rivastigmine (Exelon) 1 patch DAILY TD Last administered on 02/15/19at 07:51; Start 02/08/19 at 09:00; Stop 02/16/19 at 00:17; Status DC Selenium Sulfide (Selsun) 1 kimberley 3X/WEEK PRN TP DANDRUFF; Start 02/09/19 at 15:00; Stop 02/16/19 at 16:27; Status DC Fluvoxamine Maleate (Luvox) 25 mg DAILY PO Last administered on 02/16/19at 08:27; Start 02/13/19 at 09:00; Stop 02/16/19 at 16:27; Status DC Fluvoxamine Maleate (Luvox) 50 mg DAILY PO ; Start 02/15/19 at 09:00; Stop 02/15/19 at 09:00; Status DC Fluvoxamine Maleate (Luvox) 50 mg DAILY PO ; Start 02/18/19 at 09:00; Stop 02/18/19 at 09:00; Status DC Olanzapine (ZyPREXA ZYDIS) 2.5 mg PRN Q2HR PRN PO PSYCHOSIS; Start 02/12/19 at 12:00; Stop 02/16/19 at 16:27; Status DC Rivastigmine (Exelon 13.3mg) 1 patch DAILY TD Last administered on 02/16/19at 08:30; Start 02/16/19 at 09:00; Stop 02/16/19 at 16:27; Status DC Active Scripts Active Reported Risperdal (Risperidone) 0.25 Mg Tablet 0.25 Mg PO QHS Fluvoxamine Maleate 50 Mg Tablet 1 Tab PO DAILY Fluvoxamine Maleate 25 Mg Tablet 25 Mg PO DAILY 1 Days EXELON 13.3mg/24hr (Rivastigmine) 1 Each Patch.td24 1 Patch TD DAILY Zyprexa Zydis (Olanzapine) 5 Mg Tab.rapdis 2.5 Mg PO PRN Q2HR PRN Remeron (Mirtazapine) 15 Mg Tablet 0.5 Tab PO QHS Humalog (Insulin Lispro) 100 Unit/1 Ml Insuln.pen 100 Unit SQ TIDWMEALS Lantus Solostar (Insulin Glargine,Hum.rec.anlog) 100 Unit/1 Ml Insuln.pen 12 Unit SQ QHS Lantus Solostar (Insulin Glargine,Hum.rec.anlog) 100 Unit/1 Ml Insuln.pen 35 Unit SQ DAILY Norvasc (Amlodipine Besylate) 10 Mg Tablet 1 Tab PO DAILY Selenium Sulfide 180 Ml Shampoo 180 Ml TP 3X/WEEK PRN Analgesic [place] (Methyl Salicylate/Menthol) 28 Gm Oint...g. 1 Applic TP QIDPRN PRN Milk Of Magnesia (Magnesium Hydroxide) 2,400 Mg/10 Ml Oral.susp 2,400 Mg PO HS PRN Mag-Al Plus Xs Suspension (Mag Hydrox/Al Hydrox/Simeth) 30 Ml Oral.susp 15 Ml PO QIDPRN PRN Tylenol (Acetaminophen) 325 Mg Tablet 2 Tab PO PRN Q6HRS PRN Ibuprofen 400 Mg Tablet 400 Mg PO PRN Q6HRS PRN Hydrocodone-Apap 5-325 (Hydrocodone Bit/Acetaminophen) 1 Each Tablet 1 Tab PO PRN Q4HRS PRN Lisinopril 10 Mg Tablet 10 Mg PO DAILY Tradjenta (Linagliptin) 5 Mg Tablet 5 Mg PO DAILY Vitamin D (Cholecalciferol (Vitamin D3)) 1,000 Unit Capsule 5,000 Unit PO DAILY Atorvastatin Calcium 10 Mg Tablet 10 Mg PO QHS I have reviewed the current psychotropics carefully including drug interactions. Risk benefit ratio favors no change other than as noted in my dictated progress note. Diagnosis: Problems: (1) Dementia, vascular (2) Dementia of the Alzheimer's type (3) Dementia, Alzheimer's, with behavior disturbance (4) Dementia in Alzheimer's disease with depression (5) Major neurocognitive disorder due to Alzheimer's disease, with behavioral disturbance RADHA OLGUIN MD Feb 16, 2019 22:32
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
== END 2019-02-16 16:15 | disposition short-term general hospital (02) | DRG 57 ==
LOC: GEROPSY 15:53
PROVIDERS: ADMIT Psychiatry & Neurology Psychiatry; ATTEND Psychiatry & Neurology Psychiatry
DX: G30.9 Alzheimer's disease, unspecified (principal); F02.81 Dementia in other diseases classified elsewhere, unspecified severity, with behavioral disturbance; A04.72 Enterocolitis due to Clostridium difficile, not specified as recurrent; E78.5 Hyperlipidemia, unspecified; E11.51 Type 2 diabetes mellitus with diabetic peripheral angiopathy without gangrene; M17.0 Bilateral primary osteoarthritis of knee; F32.9 Major depressive disorder, single episode, unspecified; F01.50 Vascular dementia, unspecified severity, without behavioral disturbance, psychotic disturbance, mood disturbance, and anxiety; E11.65 Type 2 diabetes mellitus with hyperglycemia; F41.9 Anxiety disorder, unspecified; F42.9 Obsessive-compulsive disorder, unspecified; F63.9 Impulse disorder, unspecified; H91.90 Unspecified hearing loss, unspecified ear; I10 Essential (primary) hypertension; R32 Unspecified urinary incontinence; Z85.46 Personal history of malignant neoplasm of prostate; Z79.899 Other long term (current) drug therapy; Z91.14 Patient's other noncompliance with medication regimen; Z79.4 Long term (current) use of insulin
CPT/HCPCS: 36415; 70450; 80053; 80061; 81001; 82306; 82607; 82947; 83036; 83540; 83550; 83735; 84436; 84443; 84480; 85007; 85025; 86592; 87493; 93005; J1815

== ENCOUNTER 2019-02-16 16:28 | Inpatient (IN) | payer MEDICARE ==
[~2019-02-16] VITALS: Ht 180.3 cm; Wt 86.2 kg
[~2019-02-16 16:28] MED LIST: ACET325T9 PO; AMLO10TA4 PO; AMLO10TA8 PO; ATOR10TA60 PO; CHOL100013 PO; CITA10TA4 PO; FLUV25TA PO; FLUV50TA2 PO; GLIP10TA13 PO; HYDR-2155 PO; IBUP400T18 PO; INSU100I11 SQ; INSU100I13 SQ; INSU100V13 SQ; LINA5TAB4 PO; LISI10TA2 PO; MAG30ORA2 PO; MAGN2400 PO; METH29OI TP; MIRT15TA PO; OLAN5TAB5 PO; RISP0.2519 PO; RIVA1PAT5 TD; SELE180S3 TP
[2019-02-16 16:50] VITALS: BP 127/78
[2019-02-16] MEDS ORDERED: MAG HYDROX/AL HYDROX/SIMETH 30 ML ORAL.SUSP PO PRN (17:30)
[2019-02-16] MEDS ORDERED: HYDROcodone/APAP 5/325MG 1 TAB TABLET PO PRN (17:30)
[2019-02-16] MEDS ORDERED: IBUPROFEN 400 MG TABLET. PO PRN (17:30)
[2019-02-16] MEDS ORDERED: METHYL SALICYLATE/MENTHOL TOPICAL OINTMENT 29GM TUBE. TP PRN (17:30)
[2019-02-16] MEDS ORDERED: ACETAMINOPHEN 325 MG TABLET PO PRN (17:30)
[2019-02-16] MEDS ORDERED: MAGNESIUM HYDROXIDE 2,400 MG/30 ML ORAL.SUSP. PO PRN (18:00)
[2019-02-16] MEDS ORDERED: IV NORMAL SALINE 1,000ML 1,000 ML IV PRN (19:30)
[2019-02-16 19:40] VITALS: BP 116/74
[2019-02-16] MEDS: VANCOMYCIN 125 MG/2.5 ML ORAL SOLUTION. PO SCH (20:12)
[2019-02-16] MEDS: MIRTAZAPINE 7.5 MG TABLET. PO SCH (20:12)
[2019-02-16] MEDS: risperiDONE 0.25 MG TABLET. PO SCH (20:12)
[2019-02-16] MEDS: LACTOBACILLUS RHAMNOSUS GG 1 CAPSULE. PO SCH (20:12)
[2019-02-16] MEDS: INSULIN GLARGINE 300 UNITS/3 ML INSULN.PEN. SQ SCH (21:10)
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
[2019-02-16] MEDS ORDERED: DEXTROSE 50% 25 GM / 50ML DISP.SYRIN. IV PRN (22:15)
[2019-02-16 23:08] VITALS: BP 111/73
[2019-02-17 05:44] VITALS: BP 117/74
[2019-02-17 06:17] LABS: BASO % 1 % (0-3); EOS # 0.3 x10^3/uL (0.0-0.7); EOS % 4 % (0-3); HEMATOCRIT 42.1 % (39.0-53.0); HEMOGLOBIN 13.7 g/dL (13.0-17.5); LYMPH # 3.1 x10^3/uL (1.0-4.8); LYMPH % 40 % (24-48); MEAN CORPUSCULAR HEMOGLOBIN 26 pg (25-35); MEAN CORPUSCULAR HGB CONC 33 g/dL (31-37); MEAN CORPUSCULAR VOLUME 79 fL (79-100); MONO # 0.6 x10^3/uL (0.0-1.1); MONO % 8 % (0-9); NEUT # 3.7 x10^3uL (1.8-7.7); NEUT % 47 % (31-73); PLATELET COUNT 117 x10^3/uL (140-400); RED BLOOD COUNT 5.33 x10^6/uL (4.30-5.70); RED CELL DISTRIBUTION WIDTH 14.4 % (11.5-14.5); WHITE BLOOD COUNT 7.9 x10^3/uL (4.0-11.0)
[2019-02-17 06:27] LABS: ALBUMIN 3.1 g/dL (3.4-5.0); ALBUMIN/GLOBULIN RATIO 0.9 (1.0-1.7); CALCIUM 9.1 mg/dL (8.5-10.1); GFR 72.6; POTASSIUM 3.8 mmol/L (3.5-5.1); TOTAL BILIRUBIN 0.3 mg/dL (0.2-1.0); TOTAL PROTEIN 6.6 g/dL (6.4-8.2)
[2019-02-17] MEDS ORDERED: INSULIN LISPRO 300 UNITS/3 ML INSULN.PEN. SQ SCH (08:00)
[2019-02-17] MEDS: INSULIN LISPRO 300 UNITS/3 ML INSULN.PEN. SQ SCH ×3 (08:09→17:02)
[2019-02-17] MEDS: VANCOMYCIN 125 MG/2.5 ML ORAL SOLUTION. PO SCH ×4 (08:10→21:06)
[2019-02-17] MEDS: LACTOBACILLUS RHAMNOSUS GG 1 CAPSULE. PO SCH ×2 (08:10→21:06)
[2019-02-17] MEDS: RIVASTIGMINE 13.3MG PATCH. TD SCH (08:11)
[2019-02-17] MEDS: ATORVASTATIN CALCIUM 10 MG TABLET. PO SCH (08:13)
[2019-02-17] MEDS: amLODIPine BESYLATE 10 MG TABLET PO SCH (08:13)
[2019-02-17] MEDS: CHOLECALCIFEROL (VITAMIN D3) 1,000 UNIT TABLET PO SCH (08:13)
[2019-02-17] MEDS: LISINOPRIL 10 MG TABLET PO SCH (08:14)
[2019-02-17] MEDS: LINAGLIPTIN 5 MG TABLET PO SCH (08:14)
[2019-02-17] MEDS: INSULIN GLARGINE 300 UNITS/3 ML INSULN.PEN. SQ SCH ×2 (08:15→21:01)
[2019-02-17 11:33] VITALS: BP 127/84
[2019-02-17 15:34] VITALS: BP 118/76
[2019-02-17 19:08] VITALS: BP 100/66
[2019-02-17] MEDS: MIRTAZAPINE 7.5 MG TABLET. PO SCH (21:06)
[2019-02-17] MEDS: risperiDONE 0.25 MG TABLET. PO SCH (21:07)
[2019-02-17 22:37] VITALS: BP 105/68
--- NOTE | 2019-02-17 22:44 | PDOC ---
Exam Note: Marlo Note: Please also refer to the separate dictated note~for this date of service dictated separately.~Patient seen individually. Discussed the patient with Nursing staff reviewed the chart.~Reviewed interim history and current functioning. Reviewed vital signs,~Labs/ Radiology~and current medications noted below. Continue current treatment with the changes noted in the dictated addendum note Assessment: Vital Signs: Vital Signs Date Time Temp Pulse Resp B/P (MAP) Pulse Ox O2 Delivery O2 Flow Rate FiO2 02/17/19 22:37 98.6 97 18 105/68 (80) 96 Room Air I&O Intake and Output 02/17/19 06:59 Intake Total 480 ml Balance 480 ml Intake Oral 480 ml # Voids 2 Labs: Laboratory Tests Test 02/17/19 05:59 02/17/19 07:01 02/17/19 11:59 02/17/19 16:54 White Blood Count 7.9 x10^3/uL (4.0-11.0) Red Blood Count 5.33 x10^6/uL (4.30-5.70) Hemoglobin 13.7 g/dL (13.0-17.5) Hematocrit 42.1 % (39.0-53.0) Mean Corpuscular Volume 79 fL (79-100) Mean Corpuscular Hemoglobin 26 pg (25-35) Mean Corpuscular Hemoglobin Concent 33 g/dL (31-37) Red Cell Distribution Width 14.4 % (11.5-14.5) Platelet Count 117 x10^3/uL (140-400) L Neutrophils (%) (Auto) 47 % (31-73) Lymphocytes (%) (Auto) 40 % (24-48) Monocytes (%) (Auto) 8 % (0-9) Eosinophils (%) (Auto) 4 % (0-3) H Basophils (%) (Auto) 1 % (0-3) Neutrophils # (Auto) 3.7 x10^3uL (1.8-7.7) Lymphocytes # (Auto) 3.1 x10^3/uL (1.0-4.8) Monocytes # (Auto) 0.6 x10^3/uL (0.0-1.1) Eosinophils # (Auto) 0.3 x10^3/uL (0.0-0.7) Basophils # (Auto) 0.0 x10^3/uL (0.0-0.2) Sodium Level 143 mmol/L (136-145) Potassium Level 3.8 mmol/L (3.5-5.1) Chloride Level 104 mmol/L (98-107) Carbon Dioxide Level 32 mmol/L (21-32) Anion Gap 7 (6-14) Blood Urea Nitrogen 14 mg/dL (8-26) Creatinine 1.0 mg/dL (0.7-1.3) Estimated GFR (Cockcroft-Gault) 72.6 BUN/Creatinine Ratio 14 (6-20) Glucose Level 107 mg/dL (70-99) H Calcium Level 9.1 mg/dL (8.5-10.1) Total Bilirubin 0.3 mg/dL (0.2-1.0) Aspartate Amino Transferase (AST) 12 U/L (15-37) L Alanine Aminotransferase (ALT) 21 U/L (16-63) Alkaline Phosphatase 90 U/L (46-116) Total Protein 6.6 g/dL (6.4-8.2) Albumin 3.1 g/dL (3.4-5.0) L Albumin/Globulin Ratio 0.9 (1.0-1.7) L Glucose (Fingerstick) 110 mg/dL (70-99) H 174 mg/dL (70-99) H 219 mg/dL (70-99) H Test 02/17/19 20:29 Glucose (Fingerstick) 221 mg/dL (70-99) H Current Medications: Meds: Current Medications Acetaminophen (Tylenol) 650 mg PRN Q6HRS PRN PO PAIN / TEMP; Start 02/16/19 at 17:30 Acetaminophen/ Hydrocodone Bitart (Lortab 5/325) 1 tab PRN Q4HRS PRN PO PAIN; Start 02/16/19 at 17:30 Ibuprofen (Motrin) 400 mg PRN Q6HRS PRN PO PAIN / TEMP; Start 02/16/19 at 17:30 Insulin Glargine (Lantus) 12 units QHS SQ Last administered on 02/17/19at 21:01; Start 02/16/19 at 21:00 Insulin Glargine (Lantus) 35 units DAILY SQ Last administered on 02/17/19at 08:15; Start 02/17/19 at 09:00 Insulin Human Lispro (HumaLOG) 100 units TIDWMEALS SQ ; Start 02/17/19 at 08:00; Status UNV Lisinopril (Prinivil) 10 mg DAILY PO Last administered on 02/17/19at 08:14; Start 02/17/19 at 09:00 Al Hydroxide/Mg Hydroxide (Mylanta Plus Xs) 15 ml QIDPRN PRN PO DYSPEPSIA; Start 02/16/19 at 17:30 Multi-Ingredient Ointment (Analgesic [place]) 1 kimberley QIDPRN PRN TP MUSCLE PAIN; Start 02/16/19 at 17:30 Olanzapine (ZyPREXA ZYDIS) 2.5 mg PRN Q2HR PRN PO ANXIETY / AGITATION; Start 02/16/19 at 17:30 Rivastigmine (Exelon 13.3mg) 1 patch DAILY TD Last administered on 02/17/19at 08:11; Start 02/17/19 at 09:00 Amlodipine Besylate (Norvasc) 10 mg DAILY PO Last administered on 02/17/19at 08:13; Start 02/17/19 at 09:00 Atorvastatin Calcium (Lipitor) 10 mg DAILY PO Last administered on 02/17/19at 08:13; Start 02/17/19 at 09:00 Vitamin D (Vitamin D3) 5,000 unit DAILY PO Last administered on 02/17/19at 08:13; Start 02/17/19 at 09:00 Fluvoxamine Maleate (Luvox) 25 mg DAILY PO Last administered on 02/17/19at 08:10; Start 02/17/19 at 09:00; Stop 02/17/19 at 09:01; Status DC Fluvoxamine Maleate (Luvox) 50 mg DAILY PO ; Start 02/18/19 at 09:00 Linagliptin (Tradjenta) 5 mg DAILY PO Last administered on 02/17/19at 08:14; Start 02/17/19 at 09:00 Magnesium Hydroxide (Milk Of Magnesia) 2,400 mg PRN QHS PRN PO CONSTIPATION; Start 02/16/19 at 18:00 Mirtazapine (Remeron) 7.5 mg QHS PO Last administered on 02/17/19at 21:06; Start 02/16/19 at 21:00 Risperidone (RisperDAL) 0.25 mg QHS PO Last administered on 02/17/19at 21:07; Start 02/16/19 at 21:00 Selenium Sulfide (Selsun) 1 kimberley 3X/WEEK PRN TP DANDRUFF; Start 02/18/19 at 09:00 Vancomycin HCl (Vancomycin Oral Solution) 125 mg [id number] PO Last administered on 02/17/19at 21:06; Start 02/16/19 at 21:00 Lactobacillus Rhamnosus (Culturelle) 1 cap BID PO Last administered on 02/17/19at 21:06; Start 02/16/19 at 21:00 Sodium Chloride 1,000 ml @ 75 mls/hr [id number] PRN IV SEE COMMENTS; Start 02/16/19 at 19:30 Insulin Human Lispro (HumaLOG) 0-7 UNITS TIDWMEALS SQ Last administered on 02/17/19at 17:02; Start 02/17/19 at 08:00 Dextrose (Dextrose 50%-Water Syringe) 12.5 gm PRN Q15MIN PRN IV SEE COMMENTS; Start 02/16/19 at 22:15 Active Scripts Active Reported Risperdal (Risperidone) 0.25 Mg Tablet 0.25 Mg PO QHS Fluvoxamine Maleate 50 Mg Tablet 1 Tab PO DAILY Fluvoxamine Maleate 25 Mg Tablet 25 Mg PO DAILY 1 Days EXELON 13.3mg/24hr (Rivastigmine) 1 Each Patch.td24 1 Patch TD DAILY Zyprexa Zydis (Olanzapine) 5 Mg Tab.rapdis 2.5 Mg PO PRN Q2HR PRN Remeron (Mirtazapine) 15 Mg Tablet 0.5 Tab PO QHS Humalog (Insulin Lispro) 100 Unit/1 Ml Insuln.pen 100 Unit SQ TIDWMEALS Lantus Solostar (Insulin Glargine,Hum.rec.anlog) 100 Unit/1 Ml Insuln.pen 12 Unit SQ QHS Lantus Solostar (Insulin Glargine,Hum.rec.anlog) 100 Unit/1 Ml Insuln.pen 35 Unit SQ DAILY Norvasc (Amlodipine Besylate) 10 Mg Tablet 1 Tab PO DAILY Selenium Sulfide 180 Ml Shampoo 180 Ml TP 3X/WEEK PRN Analgesic [place] (Methyl Salicylate/Menthol) 28 Gm Oint...g. 1 Applic TP QIDPRN PRN Milk Of Magnesia (Magnesium Hydroxide) 2,400 Mg/10 Ml Oral.susp 2,400 Mg PO HS PRN Mag-Al Plus Xs Suspension (Mag Hydrox/Al Hydrox/Simeth) 30 Ml Oral.susp 15 Ml PO QIDPRN PRN Tylenol (Acetaminophen) 325 Mg Tablet 2 Tab PO PRN Q6HRS PRN Ibuprofen 400 Mg Tablet 400 Mg PO PRN Q6HRS PRN Hydrocodone-Apap 5-325 (Hydrocodone Bit/Acetaminophen) 1 Each Tablet 1 Tab PO PRN Q4HRS PRN Lisinopril 10 Mg Tablet 10 Mg PO DAILY Tradjenta (Linagliptin) 5 Mg Tablet 5 Mg PO DAILY Vitamin D (Cholecalciferol (Vitamin D3)) 1,000 Unit Capsule 5,000 Unit PO DAILY Atorvastatin Calcium 10 Mg Tablet 10 Mg PO QHS I have reviewed the current psychotropics carefully including drug interactions. Risk benefit ratio favors no change other than as noted in my dictated progress note. Diagnosis: Problems: (1) Dementia, vascular (2) Dementia of the Alzheimer's type (3) Dementia, Alzheimer's, with behavior disturbance (4) Dementia in Alzheimer's disease with depression (5) Major neurocognitive disorder due to Alzheimer's disease, with behavioral disturbance RADHA OLGUIN MD Feb 17, 2019 22:44
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
[2019-02-18 05:14] VITALS: BP 120/75
[2019-02-18] MEDS: INSULIN LISPRO 300 UNITS/3 ML INSULN.PEN. SQ SCH ×3 (07:45→17:09)
[2019-02-18] MEDS: LACTOBACILLUS RHAMNOSUS GG 1 CAPSULE. PO SCH ×2 (07:55→21:23)
[2019-02-18] MEDS: LISINOPRIL 10 MG TABLET PO SCH (07:56)
[2019-02-18] MEDS: LINAGLIPTIN 5 MG TABLET PO SCH (07:56)
[2019-02-18] MEDS: amLODIPine BESYLATE 10 MG TABLET PO SCH (07:56)
[2019-02-18] MEDS: ATORVASTATIN CALCIUM 10 MG TABLET. PO SCH (07:56)
[2019-02-18] MEDS: VANCOMYCIN 125 MG/2.5 ML ORAL SOLUTION. PO SCH ×4 (07:57→21:23)
[2019-02-18] MEDS: RIVASTIGMINE 13.3MG PATCH. TD SCH (07:57)
[2019-02-18] MEDS: CHOLECALCIFEROL (VITAMIN D3) 1,000 UNIT TABLET PO SCH (07:58)
[2019-02-18] MEDS: INSULIN GLARGINE 300 UNITS/3 ML INSULN.PEN. SQ SCH ×2 (08:00→21:26)
[2019-02-18] MEDS ORDERED: SELENIUM SULFIDE 1% TOPICAL SHAMPOO 207ML BOTTLE. TP PRN (09:00)
[2019-02-18 11:00] VITALS: BP 107/70
[2019-02-18 15:23] VITALS: BP 117/70
--- NOTE | 2019-02-18 18:29 | PDOC ---
Exam Note: Marlo Note: Please also refer to the separate dictated note~for this date of service dictated separately.~Patient seen individually. Discussed the patient with Nursing staff reviewed the chart.~Reviewed interim history and current functioning. Reviewed vital signs,~Labs/ Radiology~and current medications noted below. Continue current treatment with the changes noted in the dictated addendum note Assessment: Vital Signs: Vital Signs Date Time Temp Pulse Resp B/P (MAP) Pulse Ox O2 Delivery O2 Flow Rate FiO2 02/18/19 15:23 98.1 84 20 117/70 (86) 95 Room Air I&O Intake and Output 02/18/19 07:00 Intake Total 960 ml Balance 960 ml Intake Oral 960 ml # Voids 7 Labs: Laboratory Tests Test 02/17/19 20:29 02/18/19 07:28 02/18/19 11:55 02/18/19 17:03 Glucose (Fingerstick) 221 mg/dL (70-99) H 105 mg/dL (70-99) H 155 mg/dL (70-99) H 159 mg/dL (70-99) H Current Medications: Meds: Current Medications Acetaminophen (Tylenol) 650 mg PRN Q6HRS PRN PO PAIN / TEMP; Start 02/16/19 at 17:30 Acetaminophen/ Hydrocodone Bitart (Lortab 5/325) 1 tab PRN Q4HRS PRN PO PAIN; Start 02/16/19 at 17:30 Ibuprofen (Motrin) 400 mg PRN Q6HRS PRN PO PAIN / TEMP; Start 02/16/19 at 17:30 Insulin Glargine (Lantus) 12 units QHS SQ Last administered on 02/17/19at 21:01; Start 02/16/19 at 21:00 Insulin Glargine (Lantus) 35 units DAILY SQ Last administered on 02/17/19at 08:15; Start 02/17/19 at 09:00 Insulin Human Lispro (HumaLOG) 100 units TIDWMEALS SQ ; Start 02/17/19 at 08:00; Status UNV Lisinopril (Prinivil) 10 mg DAILY PO Last administered on 02/18/19at 07:56; Start 02/17/19 at 09:00 Al Hydroxide/Mg Hydroxide (Mylanta Plus Xs) 15 ml QIDPRN PRN PO DYSPEPSIA; Start 02/16/19 at 17:30 Multi-Ingredient Ointment (Analgesic [place]) 1 kimberley QIDPRN PRN TP MUSCLE PAIN; Start 02/16/19 at 17:30 Olanzapine (ZyPREXA ZYDIS) 2.5 mg PRN Q2HR PRN PO ANXIETY / AGITATION; Start 02/16/19 at 17:30 Rivastigmine (Exelon 13.3mg) 1 patch DAILY TD Last administered on 02/18/19 07:57; Start 02/17/19 at 09:00 Amlodipine Besylate (Norvasc) 10 mg DAILY PO Last administered on 02/18/19 07:56; Start 02/17/19 at 09:00 Atorvastatin Calcium (Lipitor) 10 mg DAILY PO Last administered on 02/18/19 07:56; Start 02/17/19 at 09:00 Vitamin D (Vitamin D3) 5,000 unit DAILY PO Last administered on 02/18/19at 07:58; Start 02/17/19 at 09:00 Fluvoxamine Maleate (Luvox) 25 mg DAILY PO Last administered on 02/17/19at 08:10; Start 02/17/19 at 09:00; Stop 02/17/19 at 09:01; Status DC Fluvoxamine Maleate (Luvox) 50 mg DAILY PO Last administered on 02/18/19at 07:57; Start 02/18/19 at 09:00 Linagliptin (Tradjenta) 5 mg DAILY PO Last administered on 02/18/19at 07:56; Start 02/17/19 at 09:00 Magnesium Hydroxide (Milk Of Magnesia) 2,400 mg PRN QHS PRN PO CONSTIPATION; Start 02/16/19 at 18:00 Mirtazapine (Remeron) 7.5 mg QHS PO Last administered on 02/17/19 21:06; Start 02/16/19 at 21:00 Risperidone (RisperDAL) 0.25 mg QHS PO Last administered on 02/17/19at 21:07; Start 02/16/19 at 21:00 Selenium Sulfide (Selsun) 1 kimberley 3X/WEEK PRN TP DANDRUFF; Start 02/18/19 at 09:00 Vancomycin HCl (Vancomycin Oral Solution) 125 mg [id number] PO Last administered on 02/18/19at 17:09; Start 02/16/19 at 21:00 Lactobacillus Rhamnosus (Culturelle) 1 cap BID PO Last administered on 02/18/19at 07:55; Start 02/16/19 at 21:00 Sodium Chloride 1,000 ml @ 75 mls/hr [id number] PRN IV SEE COMMENTS; Start 02/16/19 at 19:30 Insulin Human Lispro (HumaLOG) 0-7 UNITS TIDWMEALS SQ Last administered on 02/18/19at 17:09; Start 02/17/19 at 08:00 Dextrose (Dextrose 50%-Water Syringe) 12.5 gm PRN Q15MIN PRN IV SEE COMMENTS; Start 02/16/19 at 22:15 Active Scripts Active Reported Risperdal (Risperidone) 0.25 Mg Tablet 0.25 Mg PO QHS Fluvoxamine Maleate 50 Mg Tablet 1 Tab PO DAILY Fluvoxamine Maleate 25 Mg Tablet 25 Mg PO DAILY 1 Days EXELON 13.3mg/24hr (Rivastigmine) 1 Each Patch.td24 1 Patch TD DAILY Zyprexa Zydis (Olanzapine) 5 Mg Tab.rapdis 2.5 Mg PO PRN Q2HR PRN Remeron (Mirtazapine) 15 Mg Tablet 0.5 Tab PO QHS Humalog (Insulin Lispro) 100 Unit/1 Ml Insuln.pen 100 Unit SQ TIDWMEALS Lantus Solostar (Insulin Glargine,Hum.rec.anlog) 100 Unit/1 Ml Insuln.pen 12 Uni t SQ QHS Lantus Solostar (Insulin Glargine,Hum.rec.anlog) 100 Unit/1 Ml Insuln.pen 35 Unit SQ DAILY Norvasc (Amlodipine Besylate) 10 Mg Tablet 1 Tab PO DAILY Selenium Sulfide 180 Ml Shampoo 180 Ml TP 3X/WEEK PRN Analgesic [place] (Methyl Salicylate/Menthol) 28 Gm Oint...g. 1 Applic TP QIDPRN PRN Milk Of Magnesia (Magnesium Hydroxide) 2,400 Mg/10 Ml Oral.susp 2,400 Mg PO HS PRN Mag-Al Plus Xs Suspension (Mag Hydrox/Al Hydrox/Simeth) 30 Ml Oral.susp 15 Ml PO QIDPRN PRN Tylenol (Acetaminophen) 325 Mg Tablet 2 Tab PO PRN Q6HRS PRN Ibuprofen 400 Mg Tablet 400 Mg PO PRN Q6HRS PRN Hydrocodone-Apap 5-325 (Hydrocodone Bit/Acetaminophen) 1 Each Tablet 1 Tab PO PRN Q4HRS PRN Lisinopril 10 Mg Tablet 10 Mg PO DAILY Tradjenta (Linagliptin) 5 Mg Tablet 5 Mg PO DAILY Vitamin D (Cholecalciferol (Vitamin D3)) 1,000 Unit Capsule 5,000 Unit PO DAILY Atorvastatin Calcium 10 Mg Tablet 10 Mg PO QHS I have reviewed the current psychotropics carefully including drug interactions. Risk benefit ratio favors no change other than as noted in my dictated progress note. Diagnosis: Problems: (1) Major neurocognitive disorder due to Alzheimer's disease, with behavioral disturbance (2) Dementia in Alzheimer's disease with depression (3) Dementia, Alzheimer's, with behavior disturbance (4) Dementia of the Alzheimer's type (5) Dementia, vascular RADHA OLGUIN MD Feb 18, 2019 18:29
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
[2019-02-18 21:00] VITALS: BP 129/77
[2019-02-18] MEDS: risperiDONE 0.25 MG TABLET. PO SCH (21:23)
[2019-02-18] MEDS: MIRTAZAPINE 7.5 MG TABLET. PO SCH (21:23)
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
[2019-02-19 06:34] LABS: HEMATOCRIT 45.1 % (39.0-53.0); HEMOGLOBIN 14.9 g/dL (13.0-17.5); RED BLOOD COUNT 5.65 x10^6/uL (4.30-5.70); RED CELL DISTRIBUTION WIDTH 14.7 % (11.5-14.5); WHITE BLOOD COUNT 8.6 x10^3/uL (4.0-11.0)
[2019-02-19 06:42] LABS: CALCIUM 9.1 mg/dL (8.5-10.1); CREATININE 1.1 mg/dL (0.7-1.3); GFR 65.1; POTASSIUM 4.2 mmol/L (3.5-5.1)
[2019-02-19 06:43] VITALS: BP 150/83
[2019-02-19] MEDS: INSULIN LISPRO 300 UNITS/3 ML INSULN.PEN. SQ SCH ×3 (08:00→17:28)
[2019-02-19] MEDS: RIVASTIGMINE 13.3MG PATCH. TD SCH (08:22)
[2019-02-19] MEDS: CHOLECALCIFEROL (VITAMIN D3) 1,000 UNIT TABLET PO SCH (08:22)
[2019-02-19] MEDS: VANCOMYCIN 125 MG/2.5 ML ORAL SOLUTION. PO SCH ×4 (08:22→21:32)
[2019-02-19] MEDS: LACTOBACILLUS RHAMNOSUS GG 1 CAPSULE. PO SCH ×2 (08:22→21:32)
[2019-02-19] MEDS: ATORVASTATIN CALCIUM 10 MG TABLET. PO SCH (08:23)
[2019-02-19] MEDS: LINAGLIPTIN 5 MG TABLET PO SCH (08:23)
[2019-02-19] MEDS: amLODIPine BESYLATE 10 MG TABLET PO SCH (08:23)
[2019-02-19] MEDS: LISINOPRIL 10 MG TABLET PO SCH (08:23)
[2019-02-19] MEDS: INSULIN GLARGINE 300 UNITS/3 ML INSULN.PEN. SQ SCH ×2 (08:27→21:33)
[2019-02-19 11:38] VITALS: BP 135/78
[2019-02-19 15:35] VITALS: BP 111/74
[2019-02-19 20:00] VITALS: BP 111/68
[2019-02-19] MEDS: MIRTAZAPINE 7.5 MG TABLET. PO SCH (21:32)
[2019-02-19] MEDS: risperiDONE 0.25 MG TABLET. PO SCH (21:32)
--- NOTE | 2019-02-19 22:37 | PDOC ---
Exam Note: Marlo Note: Please also refer to the separate dictated note~for this date of service dictated separately.~Patient seen individually. Discussed the patient with Nursing staff reviewed the chart.~Reviewed interim history and current functioning. Reviewed vital signs,~Labs/ Radiology~and current medications noted below. Continue current treatment with the changes noted in the dictated addendum note Assessment: Vital Signs: Vital Signs Date Time Temp Pulse Resp B/P (MAP) Pulse Ox O2 Delivery O2 Flow Rate FiO2 02/19/19 20:00 98.3 89 20 111/68 (82) 95 Room Air I&O Intake and Output 02/19/19 07:00 Intake Total 1080 ml Balance 1080 ml Intake Oral 1080 ml # Voids 5 # Bowel Movements 2 Labs: Laboratory Tests Test 02/19/19 06:20 02/19/19 07:40 02/19/19 11:51 02/19/19 17:12 White Blood Count 8.6 x10^3/uL (4.0-11.0) Red Blood Count 5.65 x10^6/uL (4.30-5.70) Hemoglobin 14.9 g/dL (13.0-17.5) Hematocrit 45.1 % (39.0-53.0) Mean Corpuscular Volume 80 fL (79-100) Mean Corpuscular Hemoglobin 26 pg (25-35) Mean Corpuscular Hemoglobin Concent 33 g/dL (31-37) Red Cell Distribution Width 14.7 % (11.5-14.5) H Platelet Count 129 x10^3/uL (140-400) L Sodium Level 142 mmol/L (136-145) Potassium Level 4.2 mmol/L (3.5-5.1) Chloride Level 103 mmol/L (98-107) Carbon Dioxide Level 31 mmol/L (21-32) Anion Gap 8 (6-14) Blood Urea Nitrogen 14 mg/dL (8-26) Creatinine 1.1 mg/dL (0.7-1.3) Estimated GFR (Cockcroft-Gault) 65.1 Glucose Level 125 mg/dL (70-99) H Calcium Level 9.1 mg/dL (8.5-10.1) Glucose (Fingerstick) 128 mg/dL (70-99) H 253 mg/dL (70-99) H 221 mg/dL (70-99) H Test 02/19/19 19:39 Glucose (Fingerstick) 293 mg/dL (70-99) H Current Medications: Meds: Current Medications Acetaminophen (Tylenol) 650 mg PRN Q6HRS PRN PO PAIN / TEMP; Start 02/16/19 at 17:30 Acetaminophen/ Hydrocodone Bitart (Lortab 5/325) 1 tab PRN Q4HRS PRN PO PAIN; Start 02/16/19 at 17:30 Ibuprofen (Motrin) 400 mg PRN Q6HRS PRN PO PAIN / TEMP; Start 02/16/19 at 17:30 Insulin Glargine (Lantus) 12 units QHS SQ Last administered on 02/19/19at 21:33; Start 02/16/19 at 21:00 Insulin Glargine (Lantus) 35 units DAILY SQ Last administered on 02/17/19at 08 :15; Start 02/17/19 at 09:00 Insulin Human Lispro (HumaLOG) 100 units TIDWMEALS SQ ; Start 02/17/19 at 08:00; Status UNV Lisinopril (Prinivil) 10 mg DAILY PO Last administered on 02/19/19 08:23; Start 02/17/19 at 09:00 Al Hydroxide/Mg Hydroxide (Mylanta Plus Xs) 15 ml QIDPRN PRN PO DYSPEPSIA; Start 02/16/19 at 17:30 Multi-Ingredient Ointment (Analgesic [place]) 1 kimberley QIDPRN PRN TP MUSCLE PAIN; Start 02/16/19 at 17:30 Olanzapine (ZyPREXA ZYDIS) 2.5 mg PRN Q2HR PRN PO ANXIETY / AGITATION; Start 02/16/19 at 17:30 Rivastigmine (Exelon 13.3mg) 1 patch DAILY TD Last administered on 02/19/19 08:22; Start 02/17/19 at 09:00 Amlodipine Besylate (Norvasc) 10 mg DAILY PO Last administered on 02/19/19 08:23; Start 02/17/19 at 09:00 Atorvastatin Calcium (Lipitor) 10 mg DAILY PO Last administered on 02/19/19 08:23; Start 02/17/19 at 09:00 Vitamin D (Vitamin D3) 5,000 unit DAILY PO Last administered on 02/19/19 08:22; Start 02/17/19 at 09:00 Fluvoxamine Maleate (Luvox) 25 mg DAILY PO Last administered on 02/17/19 08:10; Start 02/17/19 at 09:00; Stop 02/17/19 at 09:01; Status DC Fluvoxamine Maleate (Luvox) 50 mg DAILY PO Last administered on 02/19/19 08:22; Start 02/18/19 at 09:00 Linagliptin (Tradjenta) 5 mg DAILY PO Last administered on 02/19/19 08:23; Start 02/17/19 at 09:00 Magnesium Hydroxide (Milk Of Magnesia) 2,400 mg PRN QHS PRN PO CONSTIPATION; Start 02/16/19 at 18:00 Mirtazapine (Remeron) 7.5 mg QHS PO Last administered on 02/19/19 21:32; Start 02/16/19 at 21:00 Risperidone (RisperDAL) 0.25 mg QHS PO Last administered on 02/19/19 21:32; Start 02/16/19 at 21:00 Selenium Sulfide (Selsun) 1 kimberley 3X/WEEK PRN TP DANDRUFF; Start 02/18/19 at 09:00 Vancomycin HCl (Vancomycin Oral Solution) 125 mg [id number] PO Last administered on 02/19/19 21:32; Start 02/16/19 at 21:00 Lactobacillus Rhamnosus (Culturelle) 1 cap BID PO Last administered on 02/19/19 21:32; Start 02/16/19 at 21:00 Sodium Chloride 1,000 ml @ 75 mls/hr [id number] PRN IV SEE COMMENTS; Start 02/16/19 at 19:30 Insulin Human Lispro (HumaLOG) 0-7 UNITS TIDWMEALS SQ Last administered on 02/19/19 17:28; Start 02/17/19 at 08:00 Dextrose (Dextrose 50%-Water Syringe) 12.5 gm PRN Q15MIN PRN IV SEE COMMENTS; Start 02/16/19 at 22:15 Active Scripts Active Reported Risperdal (Risperidone) 0.25 Mg Tablet 0.25 Mg PO QHS Fluvoxamine Maleate 50 Mg Tablet 1 Tab PO DAILY Fluvoxamine Maleate 25 Mg Tablet 25 Mg PO DAILY 1 Days EXELON 13.3mg/24hr (Rivastigmine) 1 Each Patch.td24 1 Patch TD DAILY Zyprexa Zydis (Olanzapine) 5 Mg Tab.rapdis 2.5 Mg PO PRN Q2HR PRN Remeron (Mirtazapine) 15 Mg Tablet 0.5 Tab PO QHS Humalog (Insulin Lispro) 100 Unit/1 Ml Insuln.pen 100 Unit SQ TIDWMEALS Lantus Solostar (Insulin Glargine,Hum.rec.anlog) 100 Unit/1 Ml Insuln.pen 12 Unit SQ QHS Lantus Solostar (Insulin Glargine,Hum.rec.anlog) 100 Unit/1 Ml Insuln.pen 35 Unit SQ DAILY Norvasc (Amlodipine Besylate) 10 Mg Tablet 1 Tab PO DAILY Selenium Sulfide 180 Ml Shampoo 180 Ml TP 3X/WEEK PRN Analgesic [place] (Methyl Salicylate/Menthol) 28 Gm Oint...g. 1 Applic TP QIDPRN PRN Milk Of Magnesia (Magnesium Hydroxide) 2,400 Mg/10 Ml Oral.susp 2,400 Mg PO HS PRN Mag-Al Plus Xs Suspension (Mag Hydrox/Al Hydrox/Simeth) 30 Ml Oral.susp 15 Ml PO QIDPRN PRN Tylenol (Acetaminophen) 325 Mg Tablet 2 Tab PO PRN Q6HRS PRN Ibuprofen 400 Mg Tablet 400 Mg PO PRN Q6HRS PRN Hydrocodone-Apap 5-325 (Hydrocodone Bit/Acetaminophen) 1 Each Tablet 1 Tab PO PRN Q4HRS PRN Lisinopril 10 Mg Tablet 10 Mg PO DAILY Tradjenta (Linagliptin) 5 Mg Tablet 5 Mg PO DAILY Vitamin D (Cholecalciferol (Vitamin D3)) 1,000 Unit Capsule 5,000 Unit PO DAILY Atorvastatin Calcium 10 Mg Tablet 10 Mg PO QHS I have reviewed the current psychotropics carefully including drug interactions. Risk benefit ratio favors no change other than as noted in my dictated progress note. Diagnosis: Problems: (1) Dementia, vascular (2) Dementia of the Alzheimer's type (3) Dementia, Alzheimer's, with behavior disturbance (4) Dementia in Alzheimer's disease with depression (5) Major neurocognitive disorder due to Alzheimer's disease, with behavioral disturbance RADHA OLGUIN MD Feb 19, 2019 22:37
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
[2019-02-20 05:29] VITALS: BP 147/77
[2019-02-20] MEDS: VANCOMYCIN 125 MG/2.5 ML ORAL SOLUTION. PO SCH ×4 (09:00→21:30)
[2019-02-20] MEDS: CHOLECALCIFEROL (VITAMIN D3) 1,000 UNIT TABLET PO SCH (09:04)
[2019-02-20] MEDS: LACTOBACILLUS RHAMNOSUS GG 1 CAPSULE. PO SCH ×2 (09:04→20:44)
[2019-02-20] MEDS: LINAGLIPTIN 5 MG TABLET PO SCH (09:05)
[2019-02-20] MEDS: LISINOPRIL 10 MG TABLET PO SCH (09:05)
[2019-02-20] MEDS: amLODIPine BESYLATE 10 MG TABLET PO SCH (09:05)
[2019-02-20] MEDS: ATORVASTATIN CALCIUM 10 MG TABLET. PO SCH (09:05)
[2019-02-20] MEDS: RIVASTIGMINE 13.3MG PATCH. TD SCH (09:06)
[2019-02-20] MEDS: INSULIN GLARGINE 300 UNITS/3 ML INSULN.PEN. SQ SCH ×2 (09:07→20:51)
[2019-02-20] MEDS: INSULIN LISPRO 300 UNITS/3 ML INSULN.PEN. SQ SCH ×3 (09:08→17:18)
[2019-02-20 11:45] VITALS: BP 126/76
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
--- NOTE | 2019-02-20 12:44 | PN ---
DATE: 02/18/2019 PSYCHIATRIC PROGRESS NOTE This late entry 02/18/2019 covers elements not covered in my initial note. SUBJECTIVE: I met with the patient in the evening. Per nursing report, the patient remains somewhat anxious, restless, wanting to leave, but otherwise compliant. He remains confused. His diarrhea secondary to Clostridium difficile, appears to be improving. He has had some solid stools. REVIEW OF SYSTEMS: No CV, , pulmonary, eye system symptoms on review. MENTAL STATUS EXAM: Oriented to himself. Insight, judgment, recent memory is impaired. Language function intact. Attention span short. Mood and affect, somewhat anxious, little impulsive, but generally better. LABORATORY DATA: Reviewed. IMPRESSION: Unchanged from initial note. PLAN: No change from initial note. Once the patient is medically stable, he may transfer to longterm directly from [address] [place] [address]. MAN Vandana OLGUIN MD DR: ALAN/elina JOB#: [id number] / [id number]
--- NOTE | 2019-02-20 12:45 | PN ---
DATE: 02/19/2019 PSYCHIATRIC PROGRESS NOTE This late entry 02/19/2019 covers elements not covered in my initial note. SUBJECTIVE: I met with the patient in the evening of 02/19/2019 in his room. Per nursing report, the patient is doing somewhat better. He remains somewhat anxious, wanting to leave, but redirectable. Diarrhea from C. diff is improved. REVIEW OF SYSTEMS: No CV, , pulmonary, eye system symptoms on review. Reliability poor. MENTAL STATUS EXAM: Oriented to self. Insight, judgment, recent memory is impaired, remote is better. Language function intact. Attention span short. Mood and affect remains a little anxious, dysphoric, but improved. No suicidal or homicidal ideation. LABORATORY DATA: Reviewed. IMPRESSION: Unchanged from initial note. PLAN: No change from initial note. MAN Vandana OLGUIN MD DR: ALAN/elina JOB#: [id number] / [id number]
[2019-02-20 15:27] VITALS: BP 148/68
[2019-02-20 19:38] VITALS: BP 107/70
[2019-02-20] MEDS: MIRTAZAPINE 7.5 MG TABLET. PO SCH (20:43)
[2019-02-20] MEDS: risperiDONE 0.25 MG TABLET. PO SCH (20:43)
--- NOTE | 2019-02-20 22:21 | PDOC ---
Exam Note: Marlo Note: Please also refer to the separate dictated note~for this date of service dictated separately.~Patient seen individually. Discussed the patient with Nursing staff reviewed the chart.~Reviewed interim history and current functioning. Reviewed vital signs,~Labs/ Radiology~and current medications noted below. Continue current treatment with the changes noted in the dictated addendum note Assessment: Vital Signs: Vital Signs Date Time Temp Pulse Resp B/P (MAP) Pulse Ox O2 Delivery O2 Flow Rate FiO2 02/20/19 19:38 98.2 110 107/70 (82) 93 02/20/19 15:27 20 Room Air I&O Intake and Output 02/20/19 07:00 # Voids 2 # Bowel Movements 1 Labs: Laboratory Tests Test 02/20/19 07:33 02/20/19 11:55 02/20/19 16:55 02/20/19 19:37 Glucose (Fingerstick) 155 mg/dL (70-99) H 138 mg/dL (70-99) H 292 mg/dL (70-99) H 298 mg/dL (70-99) H Current Medications: Meds: Current Medications Acetaminophen (Tylenol) 650 mg PRN Q6HRS PRN PO PAIN / TEMP; Start 02/16/19 at 17:30 Acetaminophen/ Hydrocodone Bitart (Lortab 5/325) 1 tab PRN Q4HRS PRN PO PAIN; Start 02/16/19 at 17:30 Ibuprofen (Motrin) 400 mg PRN Q6HRS PRN PO PAIN / TEMP; Start 02/16/19 at 17:30 Insulin Glargine (Lantus) 12 units QHS SQ Last administered on 02/20/19at 20:51; Start 02/16/19 at 21:00 Insulin Glargine (Lantus) 35 units DAILY SQ Last administered on 02/20/19at 09:07; Start 02/17/19 at 09:00 Insulin Human Lispro (HumaLOG) 100 units TIDWMEALS SQ ; Start 02/17/19 at 08:00; Status UNV Lisinopril (Prinivil) 10 mg DAILY PO Last administered on 02/20/19at 09:05; Start 02/17/19 at 09:00 Al Hydroxide/Mg Hydroxide (Mylanta Plus Xs) 15 ml QIDPRN PRN PO DYSPEPSIA; Start 02/16/19 at 17:30 Multi-Ingredient Ointment (Analgesic [place]) 1 kimberley QIDPRN PRN TP MUSCLE PAIN; Start 02/16/19 at 17:30 Olanzapine (ZyPREXA ZYDIS) 2.5 mg PRN Q2HR PRN PO ANXIETY / AGITATION; Start 02/16/19 at 17:30 Rivastigmine (Exelon 13.3mg) 1 patch DAILY TD Last administered on 02/20/19 09:06; Start 02/17/19 at 09:00 Amlodipine Besylate (Norvasc) 10 mg DAILY PO Last administered on 02/20/19 09:05; Start 02/17/19 at 09:00 Atorvastatin Calcium (Lipitor) 10 mg DAILY PO Last administered on 02/20/19 09:05; Start 02/17/19 at 09:00 Vitamin D (Vitamin D3) 5,000 unit DAILY PO Last administered on 02/20/19 09:04; Start 02/17/19 at 09:00 Fluvoxamine Maleate (Luvox) 25 mg DAILY PO Last administered on 02/17/19 08:10; Start 02/17/19 at 09:00; Stop 02/17/19 at 09:01; Status DC Fluvoxamine Maleate (Luvox) 50 mg DAILY PO Last administered on 02/20/19 09:05; Start 02/18/19 at 09:00 Linagliptin (Tradjenta) 5 mg DAILY PO Last administered on 02/20/19 09:05; Start 02/17/19 at 09:00 Magnesium Hydroxide (Milk Of Magnesia) 2,400 mg PRN QHS PRN PO CONSTIPATION; Start 02/16/19 at 18:00 Mirtazapine (Remeron) 7.5 mg QHS PO Last administered on 02/20/19 20:43; Start 02/16/19 at 21:00 Risperidone (RisperDAL) 0.25 mg QHS PO Last administered on 02/20/19 20:43; Start 02/16/19 at 21:00 Selenium Sulfide (Selsun) 1 kimberley 3X/WEEK PRN TP DANDRUFF; Start 02/18/19 at 09:00 Vancomycin HCl (Vancomycin Oral Solution) 125 mg [id number] PO Last administered on 02/20/19at 21:30; Start 02/16/19 at 21:00 Lactobacillus Rhamnosus (Culturelle) 1 cap BID PO Last administered on 02/20/19at 20:44; Start 02/16/19 at 21:00 Sodium Chloride 1,000 ml @ 75 mls/hr [id number] PRN IV SEE COMMENTS; Start 02/16/19 at 19:30 Insulin Human Lispro (HumaLOG) 0-7 UNITS TIDWMEALS SQ Last administered on 02/20/19at 17:18; Start 02/17/19 at 08:00 Dextrose (Dextrose 50%-Water Syringe) 12.5 gm PRN Q15MIN PRN IV SEE COMMENTS; Start 02/16/19 at 22:15 Active Scripts Active Reported Risperdal (Risperidone) 0.25 Mg Tablet 0.25 Mg PO QHS Fluvoxamine Maleate 50 Mg Tablet 1 Tab PO DAILY Fluvoxamine Maleate 25 Mg Tablet 25 Mg PO DAILY 1 Days EXELON 13.3mg/24hr (Rivastigmine) 1 Each Patch.td24 1 Patch TD DAILY Zyprexa Zydis (Olanzapine) 5 Mg Tab.rapdis 2.5 Mg PO PRN Q2HR PRN Remeron (Mirtazapine) 15 Mg Tablet 0.5 Tab PO QHS Humalog (Insulin Lispro) 100 Unit/1 Ml Insuln.pen 100 Unit SQ TIDWMEALS Lantus Solostar (Insulin Glargine,Hum.rec.anlog) 100 Unit/1 Ml Insuln.pen 12 Unit SQ QHS Lantus Solostar (Insulin Glargine,Hum.rec.anlog) 100 Unit/1 Ml Insuln.pen 35 Unit SQ DAILY Norvasc (Amlodipine Besylate) 10 Mg Tablet 1 Tab PO DAILY Selenium Sulfide 180 Ml Shampoo 180 Ml TP 3X/WEEK PRN Analgesic [place] (Methyl Salicylate/Menthol) 28 Gm Oint...g. 1 Applic TP QIDPRN PRN Milk Of Magnesia (Magnesium Hydroxide) 2,400 Mg/10 Ml Oral.susp 2,400 Mg PO HS PRN Mag-Al Plus Xs Suspension (Mag Hydrox/Al Hydrox/Simeth) 30 Ml Oral.susp 15 Ml PO QIDPRN PRN Tylenol (Acetaminophen) 325 Mg Tablet 2 Tab PO PRN Q6HRS PRN Ibuprofen 400 Mg Tablet 400 Mg PO PRN Q6HRS PRN Hydrocodone-Apap 5-325 (Hydrocodone Bit/Acetaminophen) 1 Each Tablet 1 Tab PO PRN Q4HRS PRN Lisinopril 10 Mg Tablet 10 Mg PO DAILY Tradjenta (Linagliptin) 5 Mg Tablet 5 Mg PO DAILY Vitamin D (Cholecalciferol (Vitamin D3)) 1,000 Unit Capsule 5,000 Unit PO DAILY Atorvastatin Calcium 10 Mg Tablet 10 Mg PO QHS I have reviewed the current psychotropics carefully including drug interactions. Risk benefit ratio favors no change other than as noted in my dictated progress note. Diagnosis: Problems: (1) Dementia, vascular (2) Dementia of the Alzheimer's type (3) Dementia, Alzheimer's, with behavior disturbance (4) Dementia in Alzheimer's disease with depression (5) Major neurocognitive disorder due to Alzheimer's disease, with behavioral disturbance RADHA OLGUIN MD Feb 20, 2019 22:21
[2019-02-20 23:25] VITALS: BP 122/78
--- NOTE | 2019-02-21 01:55 | PN ---
DATE: 02/20/2019 This note covers elements not covered in my initial note of 02/20/2019. SUBJECTIVE: I met with the patient in the evening. Per nursing report, the patient remains confused, but has been more cooperative. He complains of being claustrophobic, wanting to leave and I addressed this with him. REVIEW OF SYSTEMS: No CV, , pulmonary, eye system symptoms on review. Gait is somewhat unsteady. MENTAL STATUS EXAM: Oriented to himself. Insight, judgment, recent and remote memory, attention, concentration, fund of knowledge poor, consistent with his diagnosis. 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 He was aware of this some piece of information, but given [id number] memory is affected. IMPRESSION: Unchanged from initial note. PLAN: No change from initial note. MAN Vandana OLGUIN MD DR: ALAN/elina JOB#: [id number] / [id number]
[2019-02-21 05:28] VITALS: BP 115/70
[2019-02-21] MEDS: INSULIN LISPRO 300 UNITS/3 ML INSULN.PEN. SQ SCH ×3 (08:00→17:20)
[2019-02-21] MEDS: LACTOBACILLUS RHAMNOSUS GG 1 CAPSULE. PO SCH (08:47)
[2019-02-21] MEDS: LISINOPRIL 10 MG TABLET PO SCH (08:47)
[2019-02-21] MEDS: ATORVASTATIN CALCIUM 10 MG TABLET. PO SCH (08:47)
[2019-02-21] MEDS: CHOLECALCIFEROL (VITAMIN D3) 1,000 UNIT TABLET PO SCH (08:47)
[2019-02-21] MEDS: RIVASTIGMINE 13.3MG PATCH. TD SCH (08:48)
[2019-02-21] MEDS: INSULIN GLARGINE 300 UNITS/3 ML INSULN.PEN. SQ SCH ×2 (08:52→20:55)
[2019-02-21] MEDS: LINAGLIPTIN 5 MG TABLET PO SCH (08:52)
[2019-02-21] MEDS: amLODIPine BESYLATE 10 MG TABLET PO SCH (08:53)
[2019-02-21] MEDS: VANCOMYCIN 125 MG/2.5 ML ORAL SOLUTION. PO SCH ×4 (08:54→20:53)
--- NOTE | 2019-02-21 10:12 | PDOC ---
SUBJECTIVE: CC: diarrhea Stools formed No new C/O s OBJECTIVE: Vital Signs: Vital Signs Date Time Temp Pulse Resp B/P (MAP) Pulse Ox O2 Delivery O2 Flow Rate FiO2 02/21/19 08:53 86 115/70 02/21/19 05:28 98.0 94 02/20/19 23:25 Room Air 02/20/19 15:27 20 I & O Intake and Output 02/21/19 07:00 Intake Total 3200 ml Balance 3200 ml Intake Oral 3200 ml # Voids 3 Labs: Laboratory Tests Test 02/19/19 11:51 02/19/19 17:12 02/19/19 19:39 02/20/19 07:33 Glucose (Fingerstick) 253 mg/dL (70-99) 221 mg/dL (70-99) 293 mg/dL (70-99) 155 mg/dL (70-99) Test 02/20/19 11:55 02/20/19 16:55 02/20/19 19:37 Glucose (Fingerstick) 138 mg/dL (70-99) 292 mg/dL (70-99) 298 mg/dL (70-99) Physical Exam: HEENT: PERRLA Lungs: clear CV RRR Abd: soft, nontender Ext No edema Neuro: pleasantly confused ASSESSMENT: CDiff Colitis, treated Dementia with Agitation PLAN: DC IV fluids PO vancomycin through Saturday simplified Await placement Saturday ELIOT TONY MD Feb 21, 2019 10:12
[2019-02-21 12:04] VITALS: BP 114/75
[2019-02-21 15:00] VITALS: BP 118/72
--- NOTE | 2019-02-21 18:31 | PDOC ---
Exam Note: Marlo Note: Please also refer to the separate dictated note~for this date of service dictated separately.~Patient seen individually. Discussed the patient with Nursing staff reviewed the chart.~Reviewed interim history and current functioning. Reviewed vital signs,~Labs/ Radiology~and current medications noted below. Continue current treatment with the changes noted in the dictated addendum note Assessment: Vital Signs: Vital Signs Date Time Temp Pulse Resp B/P (MAP) Pulse Ox O2 Delivery O2 Flow Rate FiO2 02/21/19 15:00 98.6 86 118/72 (87) 93 Room Air 02/20/19 15:27 20 I&O Intake and Output 02/21/19 07:00 Intake Total 3200 ml Balance 3200 ml Intake Oral 3200 ml # Voids 3 Labs: Laboratory Tests Test 02/20/19 19:37 02/21/19 08:21 02/21/19 12:24 02/21/19 17:15 Glucose (Fingerstick) 298 mg/dL (70-99) H 139 mg/dL (70-99) H 195 mg/dL (70-99) H 191 mg/dL (70-99) H Current Medications: Meds: Current Medications Acetaminophen (Tylenol) 650 mg PRN Q6HRS PRN PO PAIN / TEMP; Start 02/16/19 at 17:30; Stop 02/21/19 at 10:09; Status DC Acetaminophen/ Hydrocodone Bitart (Lortab 5/325) 1 tab PRN Q4HRS PRN PO PAIN; Start 02/16/19 at 17:30 Ibuprofen (Motrin) 400 mg PRN Q6HRS PRN PO PAIN / TEMP; Start 02/16/19 at 17:30; Stop 02/21/19 at 10:09; Status DC Insulin Glargine (Lantus) 12 units QHS SQ Last administered on 02/20/19at 20:51; Start 02/16/19 at 21:00 Insulin Glargine (Lantus) 35 units DAILY SQ Last administered on 02/21/19at 08:52; Start 02/17/19 at 09:00 Insulin Human Lispro (HumaLOG) 100 units TIDWMEALS SQ ; Start 02/17/19 at 08:00; Status UNV Lisinopril (Prinivil) 10 mg DAILY PO Last administered on 02/21/19 08:47; Start 02/17/19 at 09:00 Al Hydroxide/Mg Hydroxide (Mylanta Plus Xs) 15 ml QIDPRN PRN PO DYSPEPSIA; Start 02/16/19 at 17:30; Stop 02/21/19 at 10:09; Status DC Multi-Ingredient Ointment (Analgesic [place]) 1 k[place]ber[place] QIDPRN PRN TP MUSCLE PAIN; Start 02/16/19 at 17:30 Olanzapine (ZyPREXA ZYDIS) 2.5 mg PRN Q2HR PRN PO ANXIETY / AGITATION; Start 02/16/19 at 17:30 Rivastigmine (Exelon 13.3mg) 1 patch DAILY TD Last administered on 02/21/19 08:48; Start 02/17/19 at 09:00 Amlodipine Besylate (Norvasc) 10 mg DAILY PO Last administered on 02/21/19 08:53; Start 02/17/19 at 09:00 Atorvastatin Calcium (Lipitor) 10 mg DAILY PO Last administered on 02/21/19 08:47; Start 02/17/19 at 09:00 Vitamin D (Vitamin D3) 5,000 unit DAILY PO Last administered on 02/21/19 08:47; Start 02/17/19 at 09:00; Stop 02/21/19 at 10:09; Status DC Fluvoxamine Maleate (Luvox) 25 mg DAILY PO Last administered on 02/17/19 08:10; Start 02/17/19 at 09:00; Stop 02/17/19 at 09:01; Status DC Fluvoxamine Maleate (Luvox) 50 mg DAILY PO Last administered on 02/21/19 08:47; Start 02/18/19 at 09:00 Linagliptin (Tradjenta) 5 mg DAILY PO Last administered on 02/21/19 08:52; Start 02/17/19 at 09:00 Magnesium Hydroxide (Milk Of Magnesia) 2,400 mg PRN QHS PRN PO CONSTIPATION; Start 02/16/19 at 18:00; Stop 02/21/19 at 10:09; Status DC Mirtazapine (Remeron) 7.5 mg QHS PO Last administered on 02/20/19 20:43; Start 02/16/19 at 21:00 Risperidone (RisperDAL) 0.25 mg QHS PO Last administered on 02/20/19at 20:43; Start 02/16/19 at 21:00; Stop 02/21/19 at 10:09; Status DC Selenium Sulfide (Selsun) 1 k[place]ber[place] 3X/WEEK PRN TP DANDRUFF; Start 02/18/19 at 09:00 Vancomycin HCl (Vancomycin Oral Solution) 125 mg [id number] PO Last administered on 02/21/19at 17:00; Start 02/16/19 at 21:00 Lactobacillus Rhamnosus (Culturelle) 1 cap BID PO Last administered on 02/21/19at 08:47; Start 02/16/19 at 21:00; Stop 02/21/19 at 10:09; Status DC Sodium Chloride 1,000 ml @ 75 mls/hr [id number] PRN IV SEE COMMENTS; Start 02/16/19 at 19:30; Stop 02/21/19 at 10:09; Status DC Insulin Human Lispro (HumaLOG) 0-7 UNITS TIDWMEALS SQ Last administered on 02/21/19at 17:20; Start 02/17/19 at 08:00 Dextrose (Dextrose 50%-Water Syringe) 12.5 gm PRN Q15MIN PRN IV SEE COMMENTS; Start 02/16/19 at 22:15 Active Scripts Active Reported Risperdal (Risperidone) 0.25 Mg Tablet 0.25 Mg PO QHS Fluvoxamine Maleate 50 Mg Tablet 1 Tab PO DAILY Fluvoxamine Maleate 25 Mg Tablet 25 Mg PO DAILY 1 Days EXELON 13.3mg/24hr (Rivastigmine) 1 Each Patch.td24 1 Patch TD DAILY Zyprexa Zydis (Olanzapine) 5 Mg Tab.rapdis 2.5 Mg PO PRN Q2HR PRN Remeron (Mirtazapine) 15 Mg Tablet 0.5 Tab PO QHS Humalog (Insulin Lispro) 100 Unit/1 Ml Insuln.pen 100 Unit SQ TIDWMEALS Lantus Solostar (Insulin Glargine,Hum.rec.anlog) 100 Unit/1 Ml Insuln.pen 12 Unit SQ QHS Lantus Solostar (Insulin Glargine,Hum.rec.anlog) 100 Unit/1 Ml Insuln.pen 35 Unit SQ DAILY Norvasc (Amlodipine Besylate) 10 Mg Tablet 1 Tab PO DAILY Selenium Sulfide 180 Ml Shampoo 180 Ml TP 3X/WEEK PRN Analgesic [place] (Methyl Salicylate/Menthol) 28 Gm Oint...g. 1 Applic TP QIDPRN PRN Milk Of Magnesia (Magnesium Hydroxide) 2,400 Mg/10 Ml Oral.susp 2,400 Mg PO HS PRN Mag-Al Plus Xs Suspension (Mag Hydrox/Al Hydrox/Simeth) 30 Ml Oral.susp 15 Ml PO QIDPRN PRN Tylenol (Acetaminophen) 325 Mg Tablet 2 Tab PO PRN Q6HRS PRN Ibuprofen 400 Mg Tablet 400 Mg PO PRN Q6HRS PRN Hydrocodone-Apap 5-325 (Hydrocodone Bit/Acetaminophen) 1 Each Tablet 1 Tab PO PRN Q4HRS PRN Lisinopril 10 Mg Tablet 10 Mg PO DAILY Tradjenta (Linagliptin) 5 Mg Tablet 5 Mg PO DAILY Vitamin D (Cholecalciferol (Vitamin D3)) 1,000 Unit Capsule 5,000 Unit PO DAILY Atorvastatin Calcium 10 Mg Tablet 10 Mg PO QHS I have reviewed the current psychotropics carefully including drug interactions. Risk benefit ratio favors no change other than as noted in my dictated progress note. Diagnosis: Problems: (1) Major neurocognitive disorder due to Alzheimer's disease, with behavioral disturbance (2) Dementia in Alzheimer's disease with depression (3) Dementia, Alzheimer's, with behavior disturbance (4) Dementia of the Alzheimer's type (5) Dementia, vascular RADHA OLGUIN MD Feb 21, 2019 18:31
[2019-02-21 19:40] VITALS: BP 112/71
[2019-02-21] MEDS: MIRTAZAPINE 7.5 MG TABLET. PO SCH (20:53)
[2019-02-22 06:31] VITALS: BP 135/82
--- NOTE | 2019-02-22 09:24 | PDOC ---
SUBJECTIVE: Here for C.Diff treatment No new C/Os Blissful OBJECTIVE: See labs Vital Signs: Vital Signs Date Time Temp Pulse Resp B/P (MAP) Pulse Ox O2 Delivery O2 Flow Rate FiO2 02/22/19 06:31 98.1 86 20 135/82 (99) 96 Room Air I & O Intake and Output 02/22/19 07:00 Intake Total 1440 ml Balance 1440 ml Intake Oral 1440 ml # Voids 3 Labs: Laboratory Tests Test 02/20/19 11:55 02/20/19 16:55 02/20/19 19:37 02/21/19 08:21 Glucose (Fingerstick) 138 mg/dL (70-99) 292 mg/dL (70-99) 298 mg/dL (70-99) 139 mg/dL (70-99) Test 02/21/19 12:24 02/21/19 17:15 02/21/19 20:16 02/22/19 07:47 Glucose (Fingerstick) 195 mg/dL (70-99) 191 mg/dL (70-99) 185 mg/dL (70-99) 176 mg/dL (70-99) Physical Exam: HEENT: PERRLA CV: RRR Lungs clear Abd: soft, nontender Ext: no edema Neuro: pleasantly confused ASSESSMENT: CDiff Colitis treated Dementia Agitation PLAN: We can DC Vancomycin Meds simplified Await [facility] placement saturday ELIOT TONY MD Feb 22, 2019 09:24
[2019-02-22] MEDS: LINAGLIPTIN 5 MG TABLET PO SCH (09:25)
[2019-02-22] MEDS: ATORVASTATIN CALCIUM 10 MG TABLET. PO SCH (09:25)
[2019-02-22] MEDS: LISINOPRIL 10 MG TABLET PO SCH (09:25)
[2019-02-22] MEDS: amLODIPine BESYLATE 10 MG TABLET PO SCH (09:25)
[2019-02-22] MEDS: RIVASTIGMINE 13.3MG PATCH. TD SCH (09:26)
[2019-02-22] MEDS: INSULIN LISPRO 300 UNITS/3 ML INSULN.PEN. SQ SCH ×3 (09:29→17:34)
[2019-02-22] MEDS: INSULIN GLARGINE 300 UNITS/3 ML INSULN.PEN. SQ SCH ×2 (09:32→22:13)
--- NOTE | 2019-02-22 13:33 | PN ---
DATE: 02/21/2019 PSYCHIATRIC PROGRESS NOTE This late entry of 02/21/2019 covers elements not covered in my initial note. SUBJECTIVE: I met with the patient in the evening in his room. Per nursing report, the patient remains confused, somewhat anxious, wanting to leave, oblivious of where he was. He did take a shower on evening of 02/21/2019, was quite resistive with it, but ultimately relented. REVIEW OF SYSTEMS: No CV, , pulmonary, eye system symptoms on review. Somewhat hard of hearing. MENTAL STATUS EXAM: Oriented to himself. Insight, judgment, recent and remote memory, attention, concentration, fund of knowledge poor, consistent with his diagnosis. IMPRESSION: Major neurocognitive disorder, Alzheimer, vascular with delusion; depression; behavioral disturbance; anxiety disorder, unspecified; impulse control disorder, unspecified. Rest unchanged. PLAN: Continue current psychotropics. Plan is for him to transition to nursing facility on 02/23/2019 and it is not indicated that he returns [facility] to [facility] since for the most part, his behaviors are manageable, stable on his current psychotropics. I reviewed all of this. RADHA OLGUIN MD DR: ALAN/elina JOB#: [id number] / [id number]
[2019-02-22 16:24] VITALS: BP 138/72
--- NOTE | 2019-02-22 19:02 | PDOC ---
Exam Note: Marlo Note: Please also refer to the separate dictated note~for this date of service dictated separately.~Patient seen individually. Discussed the patient with Nursing staff reviewed the chart.~Reviewed interim history and current functioning. Reviewed vital signs,~Labs/ Radiology~and current medications noted below. Continue current treatment with the changes noted in the dictated addendum note Assessment: Vital Signs: Vital Signs Date Time Temp Pulse Resp B/P (MAP) Pulse Ox O2 Delivery O2 Flow Rate FiO2 02/22/19 16:24 98.4 78 20 138/72 (94) 92 Room Air I&O Intake and Output 02/22/19 07:00 Intake Total 1440 ml Balance 1440 ml Intake Oral 1440 ml # Voids 3 Labs: Laboratory Tests Test 02/21/19 20:16 02/22/19 07:47 02/22/19 11:52 02/22/19 17:09 Glucose (Fingerstick) 185 mg/dL (70-99) H 176 mg/dL (70-99) H 201 mg/dL (70-99) H 251 mg/dL (70-99) H Current Medications: Meds: Current Medications Acetaminophen (Tylenol) 650 mg PRN Q6HRS PRN PO PAIN / TEMP; Start 02/16/19 at 17:30; Stop 02/21/19 at 10:09; Status DC Acetaminophen/ Hydrocodone Bitart (Lortab 5/325) 1 tab PRN Q4HRS PRN PO PAIN; Start 02/16/19 at 17:30 Ibuprofen (Motrin) 400 mg PRN Q6HRS PRN PO PAIN / TEMP; Start 02/16/19 at 17:30; Stop 02/21/19 at 10:09; Status DC Insulin Glargine (Lantus) 12 units QHS SQ Last administered on 02/21/19at 20:55; Start 02/16/19 at 21:00 Insulin Glargine (Lantus) 35 units DAILY SQ Last administered on 02/22/19at 09:32; Start 02/17/19 at 09:00 Insulin Human Lispro (HumaLOG) 100 units TIDWMEALS SQ ; Start 02/17/19 at 08:00; Status UNV Lisinopril (Prinivil) 10 mg DAILY PO Last administered on 02/22/19at 09:25; Start 02/17/19 at 09:00 Al Hydroxide/Mg Hydroxide (Mylanta Plus Xs) 15 ml QIDPRN PRN PO DYSPEPSIA; Start 02/16/19 at 17:30; Stop 02/21/19 at 10:09; Status DC Multi-Ingredient Ointment (Analgesic [place]) 1 [place] QIDPRN PRN TP MUSCLE PAIN; Start 02/16/19 at 17:30 Olanzapine (ZyPREXA ZYDIS) 2.5 mg PRN Q2HR PRN PO ANXIETY / AGITATION; Start 02/16/19 at 17:30 Rivastigmine (Exelon 13.3mg) 1 patch DAILY TD Last administered on 02/22/19 09:26; Start 02/17/19 at 09:00 Amlodipine Besylate (Norvasc) 10 mg DAILY PO Last administered on 02/22/19 09:25; Start 02/17/19 at 09:00 Atorvastatin Calcium (Lipitor) 10 mg DAILY PO Last administered on 02/22/19 09:25; Start 02/17/19 at 09:00 Vitamin D (Vitamin D3) 5,000 unit DAILY PO Last administered on 02/21/19 08:47; Start 02/17/19 at 09:00; Stop 02/21/19 at 10:09; Status DC Fluvoxamine Maleate (Luvox) 25 mg DAILY PO Last administered on 02/17/19 08:10; Start 02/17/19 at 09:00; Stop 02/17/19 at 09:01; Status DC Fluvoxamine Maleate (Luvox) 50 mg DAILY PO Last administered on 02/22/19 09:26; Start 02/18/19 at 09:00 Linagliptin (Tradjenta) 5 mg DAILY PO Last administered on 02/22/19 09:25; Start 02/17/19 at 09:00 Magnesium Hydroxide (Milk Of Magnesia) 2,400 mg PRN QHS PRN PO CONSTIPATION; Start 02/16/19 at 18:00; Stop 02/21/19 at 10:09; Status DC Mirtazapine (Remeron) 7.5 mg QHS PO Last administered on 02/21/19 20:53; Start 02/16/19 at 21:00 Risperidone (RisperDAL) 0.25 mg QHS PO Last administered on 02/20/19at 20:43; Start 02/16/19 at 21:00; Stop 02/21/19 at 10:09; Status DC Selenium Sulfide (Selsun) 1 [place] 3X/WEEK PRN TP DANDRUFF; Start 02/18/19 at 09:00 Vancomycin HCl (Vancomycin Oral Solution) 125 mg [id number] PO Last administered on 02/21/19at 20:53; Start 02/16/19 at 21:00; Stop 02/22/19 at 09:26; Status DC Lactobacillus Rhamnosus (Culturelle) 1 cap BID PO Last administered on 02/21/19at 08:47; Start 02/16/19 at 21:00; Stop 02/21/19 at 10:09; Status DC Sodium Chloride 1,000 ml @ 75 mls/hr [id number] PRN IV SEE COMMENTS; Start 02/16/19 at 19:30; Stop 02/21/19 at 10:09; Status DC Insulin Human Lispro (HumaLOG) 0-7 UNITS TIDWMEALS SQ Last administered on 02/22/19at 17:34; Start 02/17/19 at 08:00 Dextrose (Dextrose 50%-Water Syringe) 12.5 gm PRN Q15MIN PRN IV SEE COMMENTS; Start 02/16/19 at 22:15 Active Scripts Active Reported Risperdal (Risperidone) 0.25 Mg Tablet 0.25 Mg PO QHS Fluvoxamine Maleate 50 Mg Tablet 1 Tab PO DAILY Fluvoxamine Maleate 25 Mg Tablet 25 Mg PO DAILY 1 Days EXELON 13.3mg/24hr (Rivastigmine) 1 Each Patch.td24 1 Patch TD DAILY Zyprexa Zydis (Olanzapine) 5 Mg Tab.rapdis 2.5 Mg PO PRN Q2HR PRN Remeron (Mirtazapine) 15 Mg Tablet 0.5 Tab PO QHS Humalog (Insulin Lispro) 100 Unit/1 Ml Insuln.pen 100 Unit SQ TIDWMEALS Lantus Solostar (Insulin Glargine,Hum.rec.anlog) 100 Unit/1 Ml Insuln.pen 12 Unit SQ QHS Lantus Solostar (Insulin Glargine,Hum.rec.anlog) 100 Unit/1 Ml Insuln.pen 35 Unit SQ DAILY Norvasc (Amlodipine Besylate) 10 Mg Tablet 1 Tab PO DAILY Selenium Sulfide 180 Ml Shampoo 180 Ml TP 3X/WEEK PRN Analgesic [place] (Methyl Salicylate/Menthol) 28 Gm Oint...g. 1 Applic TP QIDPRN PRN Milk Of Magnesia (Magnesium Hydroxide) 2,400 Mg/10 Ml Oral.susp 2,400 Mg PO HS PRN Mag-Al Plus Xs Suspension (Mag Hydrox/Al Hydrox/Simeth) 30 Ml Oral.susp 15 Ml PO QIDPRN PRN Tylenol (Acetaminophen) 325 Mg Tablet 2 Tab PO PRN Q6HRS PRN Ibuprofen 400 Mg Tablet 400 Mg PO PRN Q6HRS PRN Hydrocodone-Apap 5-325 (Hydrocodone Bit/Acetaminophen) 1 Each Tablet 1 Tab PO PRN Q4HRS PRN Lisinopril 10 Mg Tablet 10 Mg PO DAILY Tradjenta (Linagliptin) 5 Mg Tablet 5 Mg PO DAILY Vitamin D (Cholecalciferol (Vitamin D3)) 1,000 Unit Capsule 5,000 Unit PO DAILY Atorvastatin Calcium 10 Mg Tablet 10 Mg PO QHS I have reviewed the current psychotropics carefully including drug interactions. Risk benefit ratio favors no change other than as noted in my dictated progress note. Diagnosis: Problems: (1) Major neurocognitive disorder due to Alzheimer's disease, with behavioral disturbance (2) Dementia in Alzheimer's disease with depression (3) Dementia, Alzheimer's, with behavior disturbance (4) Dementia, vascular (5) Dementia of the Alzheimer's type RAHDA OLGUIN MD Feb 22, 2019 19:02
[2019-02-22 20:16] VITALS: BP 114/67
[2019-02-22] MEDS: MIRTAZAPINE 7.5 MG TABLET. PO SCH (22:12)
[2019-02-22 23:42] VITALS: BP 125/77
[2019-02-23 05:41] VITALS: BP 134/80
[2019-02-23] MEDS: INSULIN LISPRO 300 UNITS/3 ML INSULN.PEN. SQ SCH ×4 (08:00→20:19)
[2019-02-23] MEDS: amLODIPine BESYLATE 10 MG TABLET PO SCH (08:50)
[2019-02-23] MEDS: RIVASTIGMINE 13.3MG PATCH. TD SCH (08:50)
[2019-02-23] MEDS: LINAGLIPTIN 5 MG TABLET PO SCH (08:50)
[2019-02-23] MEDS: ATORVASTATIN CALCIUM 10 MG TABLET. PO SCH (08:50)
[2019-02-23] MEDS: LISINOPRIL 10 MG TABLET PO SCH (08:50)
[2019-02-23] MEDS: INSULIN GLARGINE 300 UNITS/3 ML INSULN.PEN. SQ SCH ×2 (08:56→21:00)
[2019-02-23 11:23] VITALS: BP 109/65
--- NOTE | 2019-02-23 12:14 | PN ---
DATE: 02/22/2019 PSYCHIATRIC PROGRESS NOTE This late entry of 02/22/2019 covers elements not covered in my initial note. SUBJECTIVE: I met with the patient in the evening of 02/22/2019. Per nursing report, the patient remains confused. He did have a shower after a lot of resistance, but this in effect is very positive development for him. He has been anxious, restless, but redirectable. REVIEW OF SYSTEMS: No CV, , pulmonary, eye, ENT system symptoms on review. He is lying in bed as I met with him. Referred to me as doctor, but unable to remember who I was. MENTAL STATUS EXAM: Oriented to himself. Insight, judgment, recent and remote memory, attention, concentration, fund of knowledge poor, consistent with his diagnosis mentioned in my initial note. PLAN: No change from initial note. The patient will be transitioned to nursing facility in the next day or so. He does not need to return to [facility]. RADHA OLGUIN MD DR: ALAN/elina JOB#: [id number] / [id number]
[2019-02-23 15:50] VITALS: BP 138/75
--- NOTE | 2019-02-23 18:29 | PDOC ---
Exam Note: Marlo Note: Please also refer to the separate dictated note~for this date of service dictated separately.~Patient seen individually. Discussed the patient with Nursing staff reviewed the chart.~Reviewed interim history and current functioning. Reviewed vital signs,~Labs/ Radiology~and current medications noted below. Continue current treatment with the changes noted in the dictated addendum note Assessment: Vital Signs: Vital Signs Date Time Temp Pulse Resp B/P (MAP) Pulse Ox O2 Delivery O2 Flow Rate FiO2 02/23/19 15:50 98.6 78 20 138/75 (96) 94 Room Air I&O Intake and Output 02/23/19 07:00 Intake Total 1530 ml Balance 1530 ml Intake Oral 1530 ml # Voids 1 Labs: Laboratory Tests Test 02/22/19 20:32 02/23/19 07:50 02/23/19 11:39 02/23/19 16:53 Glucose (Fingerstick) 254 mg/dL (70-99) H 138 mg/dL (70-99) H 155 mg/dL (70-99) H 237 mg/dL (70-99) H Current Medications: Meds: Current Medications Acetaminophen (Tylenol) 650 mg PRN Q6HRS PRN PO PAIN / TEMP; Start 02/16/19 at 17:30; Stop 02/21/19 at 10:09; Status DC Acetaminophen/ Hydrocodone Bitart (Lortab 5/325) 1 tab PRN Q4HRS PRN PO PAIN; Start 02/16/19 at 17:30 Ibuprofen (Motrin) 400 mg PRN Q6HRS PRN PO PAIN / TEMP; Start 02/16/19 at 17:30; Stop 02/21/19 at 10:09; Status DC Insulin Glargine (Lantus) 12 units QHS SQ Last administered on 02/22/19at 22:13; Start 02/16/19 at 21:00 Insulin Glargine (Lantus) 35 units DAILY SQ Last administered on 02/23/19at 08:56; Start 02/17/19 at 09:00 Insulin Human Lispro (HumaLOG) 100 units TIDWMEALS SQ ; Start 02/17/19 at 08:00; Status UNV Lisinopril (Prinivil) 10 mg DAILY PO Last administered on 02/23/19at 08:50; Start 02/17/19 at 09:00 Al Hydroxide/Mg Hydroxide (Mylanta Plus Xs) 15 ml QIDPRN PRN PO DYSPEPSIA; Start 02/16/19 at 17:30; Stop 02/21/19 at 10:09; Status DC Multi-Ingredient Ointment (Analgesic [place]) 1 kimberley QIDPRN PRN TP MUSCLE PAIN; Start 02/16/19 at 17:30 Olanzapine (ZyPREXA ZYDIS) 2.5 mg PRN Q2HR PRN PO ANXIETY / AGITATION; Start 02/16/19 at 17:30 Rivastigmine (Exelon 13.3mg) 1 patch DAILY TD Last administered on 02/23/19 08 :50; Start 02/17/19 at 09:00 Amlodipine Besylate (Norvasc) 10 mg DAILY PO Last administered on 02/23/19 08:50; Start 02/17/19 at 09:00 Atorvastatin Calcium (Lipitor) 10 mg DAILY PO Last administered on 02/23/19 08:50; Start 02/17/19 at 09:00 Vitamin D (Vitamin D3) 5,000 unit DAILY PO Last administered on 02/21/19 08:47; Start 02/17/19 at 09:00; Stop 02/21/19 at 10:09; Status DC Fluvoxamine Maleate (Luvox) 25 mg DAILY PO Last administered on 02/17/19 08:10; Start 02/17/19 at 09:00; Stop 02/17/19 at 09:01; Status DC Fluvoxamine Maleate (Luvox) 50 mg DAILY PO Last administered on 02/23/19 08:51; Start 02/18/19 at 09:00 Linagliptin (Tradjenta) 5 mg DAILY PO Last administered on 02/23/19 08:50; Start 02/17/19 at 09:00 Magnesium Hydroxide (Milk Of Magnesia) 2,400 mg PRN QHS PRN PO CONSTIPATION; Start 02/16/19 at 18:00; Stop 02/21/19 at 10:09; Status DC Mirtazapine (Remeron) 7.5 mg QHS PO Last administered on 02/22/19at 22:12; Start 02/16/19 at 21:00 Risperidone (RisperDAL) 0.25 mg QHS PO Last administered on 02/20/19at 20:43; Start 02/16/19 at 21:00; Stop 02/21/19 at 10:09; Status DC Selenium Sulfide (Selsun) 1 kimberley 3X/WEEK PRN TP DANDRUFF; Start 02/18/19 at 09:00 Vancomycin HCl (Vancomycin Oral Solution) 125 mg [id number] PO Last administered on 02/21/19at 20:53; Start 02/16/19 at 21:00; Stop 02/22/19 at 09:26; Status DC Lactobacillus Rhamnosus (Culturelle) 1 cap BID PO Last administered on 02/21/19at 08:47; Start 02/16/19 at 21:00; Stop 02/21/19 at 10:09; Status DC Sodium Chloride 1,000 ml @ 75 mls/hr [id number] PRN IV SEE COMMENTS; Start 02/16/19 at 19:30; Stop 02/21/19 at 10:09; Status DC Insulin Human Lispro (HumaLOG) 0-7 UNITS TIDWMEALS SQ Last administered on 02/23/19at 17:41; Start 02/17/19 at 08:00 Dextrose (Dextrose 50%-Water Syringe) 12.5 gm PRN Q15MIN PRN IV SEE COMMENTS; Start 02/16/19 at 22:15 Active Scripts Active Reported Risperdal (Risperidone) 0.25 Mg Tablet 0.25 Mg PO QHS Fluvoxamine Maleate 50 Mg Tablet 1 Tab PO DAILY Fluvoxamine Maleate 25 Mg Tablet 25 Mg PO DAILY 1 Days EXELON 13.3mg/24hr (Rivastigmine) 1 Each Patch.td24 1 Patch TD DAILY Zyprexa Zydis (Olanzapine) 5 Mg Tab.rapdis 2.5 Mg PO PRN Q2HR PRN Remeron (Mirtazapine) 15 Mg Tablet 0.5 Tab PO QHS Humalog (Insulin Lispro) 100 Unit/1 Ml Insuln.pen 100 Unit SQ TIDWMEALS Lantus Solostar (Insulin Glargine,Hum.rec.anlog) 100 Unit/1 Ml Insuln.pen 12 Unit SQ QHS Lantus Solostar (Insulin Glargine,Hum.rec.anlog) 100 Unit/1 Ml Insuln.pen 35 Unit SQ DAILY Norvasc (Amlodipine Besylate) 10 Mg Tablet 1 Tab PO DAILY Selenium Sulfide 180 Ml Shampoo 180 Ml TP 3X/WEEK PRN Analgesic [place] (Methyl Salicylate/Menthol) 28 Gm Oint...g. 1 Applic TP QIDPRN PRN Milk Of Magnesia (Magnesium Hydroxide) 2,400 Mg/10 Ml Oral.susp 2,400 Mg PO HS PRN Mag-Al Plus Xs Suspension (Mag Hydrox/Al Hydrox/Simeth) 30 Ml Oral.susp 15 Ml PO QIDPRN PRN Tylenol (Acetaminophen) 325 Mg Tablet 2 Tab PO PRN Q6HRS PRN Ibuprofen 400 Mg Tablet 400 Mg PO PRN Q6HRS PRN Hydrocodone-Apap 5-325 (Hydrocodone Bit/Acetaminophen) 1 Each Tablet 1 Tab PO PRN Q4HRS PRN Lisinopril 10 Mg Tablet 10 Mg PO DAILY Tradjenta (Linagliptin) 5 Mg Tablet 5 Mg PO DAILY Vitamin D (Cholecalciferol (Vitamin D3)) 1,000 Unit Capsule 5,000 Unit PO DAILY Atorvastatin Calcium 10 Mg Tablet 10 Mg PO QHS I have reviewed the current psychotropics carefully including drug interactions. Risk benefit ratio favors no change other than as noted in my dictated progress note. Diagnosis: Problems: (1) Major neurocognitive disorder due to Alzheimer's disease, with behavioral disturbance (2) Dementia in Alzheimer's disease with depression (3) Dementia, Alzheimer's, with behavior disturbance (4) Dementia of the Alzheimer's type (5) Dementia, vascular RADHA OLGUIN MD Feb 23, 2019 18:29
[2019-02-23 19:26] VITALS: BP 131/81
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
[2019-02-23] MEDS: MIRTAZAPINE 7.5 MG TABLET. PO SCH (20:17)
[2019-02-24 05:52] VITALS: BP 128/78
[2019-02-24 06:58] LABS: CALCIUM 9.4 mg/dL (8.5-10.1); CREATININE 1.1 mg/dL (0.7-1.3); GFR 65.1; POTASSIUM 4.2 mmol/L (3.5-5.1)
[2019-02-24] MEDS ORDERED: DEXTROSE 50% 25 GM / 50ML DISP.SYRIN. IV PRN (08:00)
[2019-02-24] MEDS ORDERED: INSULIN LISPRO 300 UNITS/3 ML INSULN.PEN. SQ ONE (08:00)
[2019-02-24] MEDS: ATORVASTATIN CALCIUM 10 MG TABLET. PO SCH (08:57)
[2019-02-24] MEDS: RIVASTIGMINE 13.3MG PATCH. TD SCH (08:57)
[2019-02-24] MEDS: INSULIN GLARGINE 300 UNITS/3 ML INSULN.PEN. SQ SCH (08:57)
[2019-02-24] MEDS: LISINOPRIL 10 MG TABLET PO SCH (08:58)
[2019-02-24] MEDS: LINAGLIPTIN 5 MG TABLET PO SCH (08:58)
[2019-02-24] MEDS: amLODIPine BESYLATE 10 MG TABLET PO SCH (08:58)
[2019-02-24 11:05] VITALS: BP 114/72
[2019-02-24] MEDS: INSULIN LISPRO 300 UNITS/3 ML INSULN.PEN. SQ SCH (12:18)
[2019-02-24 15:00] VITALS: BP 111/62
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
== END 2019-02-24 15:18 | disposition home or self-care (01) | DRG 372 ==
LOC: 1 SOUTH 16:28
PROVIDERS: ADMIT Internal Medicine; ATTEND Internal Medicine
DX: A04.72 Enterocolitis due to Clostridium difficile, not specified as recurrent (principal); F02.81 Dementia in other diseases classified elsewhere, unspecified severity, with behavioral disturbance; E44.0 Moderate protein-calorie malnutrition; F01.50 Vascular dementia, unspecified severity, without behavioral disturbance, psychotic disturbance, mood disturbance, and anxiety; G30.9 Alzheimer's disease, unspecified; M17.12 Unilateral primary osteoarthritis, left knee; R32 Unspecified urinary incontinence; C61 Malignant neoplasm of prostate; E11.51 Type 2 diabetes mellitus with diabetic peripheral angiopathy without gangrene; E78.5 Hyperlipidemia, unspecified; F32.9 Major depressive disorder, single episode, unspecified; F40.240 Claustrophobia; F63.9 Impulse disorder, unspecified; H91.90 Unspecified hearing loss, unspecified ear; I10 Essential (primary) hypertension; Z85.46 Personal history of malignant neoplasm of prostate; Z91.14 Patient's other noncompliance with medication regimen; Z68.26 Body mass index [BMI] 26.0-26.9, adult; D50.9 Iron deficiency anemia, unspecified
CPT/HCPCS: 36415; 80048; 80053; 82947; 85025; 85027; J1815